=== PATIENT | male | born 1955 | race Caucasian/White ===

== ENCOUNTER 2019-08-30 11:11 | Emergency (ER) | payer OTHER ==
[2019-08-30] MEDS ORDERED: SODIUM CHLORIDE 0.9% 500 ML 500 ML IV ONE (11:43)
--- NOTE | 2019-08-30 11:52 | ED ---
General Adult HPI - General Chief complaint: Neuro Symptoms/Deficit Stated complaint: Altered Mental Status Time Seen by Provider: 08/30/19 11:20 Source: patient, RN notes reviewed, old records reviewed Mode of arrival: EMS Limitations: no limitations - History of Present Illness Initial comments: This a 64-year-old male who presents emergency Department with his . She states she has had some low only progressing dementia but this morning he has been altered significantly she is try to get him to do simple tasks she's been somewhat combative and sometimes not making any sense she has not noticed any slurred speech or expressive aphasia. Patient doesn't seem to understand some basic questions she says and other times he seems to understand fully. Patient himself doesn't know why she is here he just states that he is cold and when you ask him to do some simple commands patient states he doesn't want to. Patient denies any pain in the chest or abdominal pain patient denies any nausea vomiting. Patient denies being short of breath. Patient states his feet are just cold and he doesn't really want to cooperate. states this is totally unlike him and he seems significantly altered whereas yesterday he seemed fine. - Related Data Home Medications Medication Instructions Recorded Confirmed Omeprazole Magnesium [PriLOSEC OTC] 20 mg PO DAILY 08/30/19 08/30/19 amLODIPine [Norvasc] 5 mg PO DAILY 08/30/19 08/30/19 traMADol HCL 50 mg PO Q6H PRN 08/30/19 08/30/19 Allergies Allergy/AdvReac Type Severity Reaction Status Date / Time codeine AdvReac hyper Verified 08/30/19 13:08 Review of Systems ROS Statement: Those systems with pertinent positive or pertinent negative responses have been documented in the HPI. ROS Other: All systems not noted in ROS Statement are negative. Past Medical History Past Medical History: Unable to Obtain History of Any Multi-Drug Resistant Organisms: None Reported Past Surgical History: Orthopedic Surgery Additional Past Surgical History / Comment(s): Pt had kidney removed Past Psychological History: No Psychological Hx Reported Smoking Status: Current every day smoker Past Alcohol Use History: Daily Past Drug Use History: None Reported General Exam - General Exam Comments Initial Comments: GENERAL: Patient is well-developed and well-nourished. Patient is nontoxic and well- hydrated and is in no acute distress. ENT: Neck is soft and supple. No significant lymphadenopathy is noted. Oropharynx is clear. Moist mucous membranes. Neck has full range of motion without eliciting any pain. EYES: The sclera were anicteric and conjunctiva were pink and moist. Extraocular movements were intact and pupils were equal round and reactive to light. Eyelids were unremarkable. PULMONARY: Unlabored respirations. Good breath sounds bilaterally. No audible rales rhonchi or wheezing was noted. CARDIOVASCULAR: There is a regular rate and rhythm without any murmurs gallops or rubs. ABDOMEN: Soft and nontender with normal bowel sounds. SKIN: Skin is clear with no lesions or rashes and otherwise unremarkable. NEUROLOGIC: Patient is alert and oriented unable to assess since patient does not want to answer questions. Cranial nerves II through XII are grossly intact. Motor and sensory are also intact. Normal speech, volume and content. Symmetrical smile. MUSCULOSKELETAL: Normal extremities with adequate strength and full range of motion. LYMPHATICS: No significant lymphadenopathy is noted PSYCHIATRIC: Normal psychiatric evaluation. Limitations: no limitations Course Vital Signs 08/30/19 08/30/19 08/30/19 11:19 12:15 13:00 Temperature 98.2 F Pulse Rate 82 89 86 Respiratory 18 18 Rate Blood Pressure 162/102 157/98 O2 Sat by Pulse 97 96 Oximetry 08/30/19 08/30/19 08/30/19 13:01 13:15 13:30 Temperature Pulse Rate 89 97 89 Respiratory 17 18 18 Rate Blood Pressure 147/81 147/81 147/81 O2 Sat by Pulse 97 95 100 Oximetry 08/30/19 08/30/19 08/30/19 13:45 14:00 14:18 Temperature Pulse Rate 90 94 96 Respiratory 18 16 18 Rate Blood Pressure 156/99 149/88 154/86 O2 Sat by Pulse 100 100 97 Oximetry Medical Decision Making - Medical Decision Making EKG shows normal sinus rhythm at 87 bpm VT interval 240 dresses 82 QT interval 346 QTC is 416. Patient's EKG shows no ST segment elevation or depression or T wave abnormalities are noted. CAT scan came back showing a possible aneurysm with a possible leak. I ordered a CT angiogram of the head neck and a code stroke was called at [address] Reed about left at 124 and I asked him where he like me to send the patient she did not want to make any arrangements until he saw the films. I asked him what blood pressure he would like me to keep the patient at with a small bleed again he stated he would read the films first before making a determination. After Dr. Reed reviewed the films he called back and wanted the patient transferred to [facility]. Patient's blood pressure was 147 systolic and he wanted the blood pressure under 140/started the patient on Cardene. He also stated that he didn't think there was a bleed. I spoke with the and she was in agreement with the transfer to [facility] even though she had some experience with [place] she thought it would be more expedient to go to [facility] because the neuro interventional is was already involved. - Lab Data Result diagrams: 08/30/19 12:05 08/30/19 12:05 Lab Results 08/30/19 08/30/19 08/30/19 Range/Units 12:05 12:05 12:05 WBC 7.2 (3.8-10.6) k/uL RBC 5.34 (4.30-5.90) m/uL Hgb 15.8 (13.0-17.5) gm/dL Hct 45.8 (39.0-53.0) % MCV 85.8 (80.0-100.0) fL MCH 29.6 (25.0-35.0) pg MCHC 34.5 (31.0-37.0) g/dL RDW 12.6 (11.5-15.5) % Plt Count 317 (150-450) k/uL Neutrophils % 82 % Lymphocytes % 10 % Monocytes % 7 % Eosinophils % 0 % Basophils % 0 % Neutrophils # 5.9 (1.3-7.7) k/uL Lymphocytes # 0.7 L (1.0-4.8) k/uL Monocytes # 0.5 (0-1.0) k/uL Eosinophils # 0.0 (0-0.7) k/uL Basophils # 0.0 (0-0.2) k/uL PT 9.4 (9.0-12.0) sec INR 0.9 (<1.2) APTT 23.3 (22.0-30.0) sec Sodium 122 L (137-145) mmol/L Potassium 4.8 (3.5-5.1) mmol/L Chloride 90 L (98-107) mmol/L Carbon Dioxide 24 (22-30) mmol/L Anion Gap 8 mmol/L BUN 14 (9-20) mg/dL Creatinine 0.74 (0.66-1.25) mg/dL Est GFR (CKD-EPI)AfAm >90 (>60 ml/min/1.73 sqM) Est GFR (CKD-EPI)NonAf >90 (>60 ml/min/1.73 sqM) Glucose 103 H (74-99) mg/dL Calcium 9.5 (8.4-10.2) mg/dL Total Bilirubin 0.7 (0.2-1.3) mg/dL AST 27 (17-59) U/L ALT 21 (4-49) U/L Alkaline Phosphatase 83 (38-126) U/L Ammonia (<30) umol/L Troponin I (0.000-0.034) ng/mL Total Protein 7.2 (6.3-8.2) g/dL Albumin 4.4 (3.5-5.0) g/dL Urine Color Urine Appearance (Clear) Urine pH (5.0-8.0) Ur Specific [place] (1.001-1.035) Urine Protein (Negative) Urine Glucose (UA) (Negative) Urine Ketones (Negative) Urine Blood (Negative) Urine Nitrite (Negative) Urine Bilirubin (Negative) Urine Urobilinogen (<2.0) mg/dL Ur Leukocyte Esterase (Negative) Urine WBC (0-5) /hpf Amorphous Sediment (None) /hpf Urine Mucus (None) /hpf Urine Opiates Screen (NotDetected) Ur Oxycodone Screen (NotDetected) Urine Methadone Screen (NotDetected) Ur Propoxyphene Screen (NotDetected) Ur Barbiturates Screen (NotDetected) U Tricyclic Antidepress (NotDetected) Ur Phencyclidine Scrn (NotDetected) Ur Amphetamines Screen (NotDetected) U Methamphetamines Scrn (NotDetected) U Benzodiazepines Scrn (NotDetected) Urine Cocaine Screen (NotDetected) U Marijuana (THC) Screen (NotDetected) Serum Alcohol <10 mg/dL 03/13/20 03/13/20 03/13/20 Range/Units 12:05 12:05 12:25 WBC (3.8-10.6) k/uL RBC (4.30-5.90) m/uL Hgb (13.0-17.5) gm/dL Hct (39.0-53.0) % MCV (80.0-100.0) fL MCH (25.0-35.0) pg MCHC (31.0-37.0) g/dL RDW (11.5-15.5) % Plt Count (150-450) k/uL Neutrophils % % Lymphocytes % % Monocytes % % Eosinophils % % Basophils % % Neutrophils # (1.3-7.7) k/uL Lymphocytes # (1.0-4.8) k/uL Monocytes # (0-1.0) k/uL Eosinophils # (0-0.7) k/uL Basophils # (0-0.2) k/uL PT (9.0-12.0) sec INR (<1.2) APTT (22.0-30.0) sec Sodium (137-145) mmol/L Potassium (3.5-5.1) mmol/L Chloride (98-107) mmol/L Carbon Dioxide (22-30) mmol/L Anion Gap mmol/L BUN (9-20) mg/dL Creatinine (0.66-1.25) mg/dL Est GFR (CKD-EPI)AfAm (>60 ml/min/1.73 sqM) Est GFR (CKD-EPI)NonAf (>60 ml/min/1.73 sqM) Glucose (74-99) mg/dL Calcium (8.4-10.2) mg/dL Total Bilirubin (0.2-1.3) mg/dL AST (17-59) U/L ALT (4-49) U/L Alkaline Phosphatase (38-126) U/L Ammonia <9 (<30) umol/L Troponin I <0.012 (0.000-0.034) ng/mL Total Protein (6.3-8.2) g/dL Albumin (3.5-5.0) g/dL Urine Color Light Yellow Urine Appearance Cloudy (Clear) Urine pH 7.5 (5.0-8.0) Ur Specific [place] 1.012 (1.001-1.035) Urine Protein Negative (Negative) Urine Glucose (UA) Negative (Negative) Urine Ketones 1+ H (Negative) Urine Blood Negative (Negative) Urine Nitrite Negative (Negative) Urine Bilirubin Negative (Negative) Urine Urobilinogen <2.0 (<2.0) mg/dL Ur Leukocyte Esterase Negative (Negative) Urine WBC <1 (0-5) /hpf Amorphous Sediment Rare H (None) /hpf Urine Mucus Rare H (None) /hpf Urine Opiates Screen Not Detected (NotDetected) Ur Oxycodone Screen Not Detected (NotDetected) Urine Methadone Screen Not Detected (NotDetected) Ur Propoxyphene Screen Not Detected (NotDetected) Ur Barbiturates Screen Not Detected (NotDetected) U Tricyclic Antidepress Not Detected (NotDetected) Ur Phencyclidine Scrn Not Detected (NotDetected) Ur Amphetamines Screen Not Detected (NotDetected) U Methamphetamines Scrn Not Detected (NotDetected) U Benzodiazepines Scrn Not Detected (NotDetected) Urine Cocaine Screen Not Detected (NotDetected) U Marijuana (THC) Screen Not Detected (NotDetected) Serum Alcohol mg/dL Critical Care Time Critical Care Time: Yes Total Critical Care Time: 35 Disposition Clinical Impression: Middle cerebral artery aneurysm, Subarachnoid hemorrhage Disposition: OTHER INSTITUTION NOT DEFINED Referrals: None,Stated [Primary Care Provider] - 1-2 days Time of Disposition: 14:05 - Out of Hospital Transfer - Req. Specs Out of Hospital Transfer - Requested Specifics: Other Emergency Center ([facility])
[2019-08-30 12:01] VITALS: TEMP 98.2
[2019-08-30 12:22] LABS: Basophils % (A) 0 %; Eosinophils % (A) 0 %; HCT 45.8 % (39.0-53.0); HGB 15.8 gm/dL (13.0-17.5); Lymphocytes # (A) 0.7 k/uL (1.0-4.8); Lymphocytes % (A) 10 %; MCH 29.6 pg (25.0-35.0); MCHC 34.5 g/dL (31.0-37.0); MCV 85.8 fL (80.0-100.0); Mean Platelet Volume 6.4; Monocytes # (A) 0.5 k/uL (0-1.0); Monocytes % (A) 7 %; Neutrophils # (A) 5.9 k/uL (1.3-7.7); Neutrophils % (A) 82 %; Platelet Count 317 k/uL (150-450); RBC 5.34 m/uL (4.30-5.90); RDW 12.6 % (11.5-15.5); WBC 7.2 k/uL (3.8-10.6)
[2019-08-30 12:34] LABS: INR 0.9 (<1.2); Partial Thromboplastin Time 23.3 sec (22.0-30.0); Prothrombin Time 9.4 sec (9.0-12.0)
[2019-08-30 12:37] LABS: ALT 21 U/L (4-49); AST 27 U/L (17-59); African American GFR (CKD) >90 (>60 ml/min/1.73 sqM); Albumin 4.4 g/dL (3.5-5.0); Alcohol <10 mg/dL; Alkaline Phosphatase 83 U/L (38-126); Anion Gap 8 mmol/L; Blood Urea Nitrogen 14 mg/dL (9-20); Calcium 9.5 mg/dL (8.4-10.2); Carbon Dioxide 24 mmol/L (22-30); Chloride 90 mmol/L (98-107); Glucose 103 mg/dL (74-99); Non-African American GFR(CKD) >90 (>60 ml/min/1.73 sqM); Potassium 4.8 mmol/L (3.5-5.1); Sodium 122 mmol/L (137-145); Total Bilirubin 0.7 mg/dL (0.2-1.3); Total Protein 7.2 g/dL (6.3-8.2)
[2019-08-30 12:56] LABS: Amorphous Sediment,Urine Rare /hpf; Appearance,Urine Cloudy (Clear); Bilirubin,Urine Negative (Negative); Blood,Urine Negative (Negative); Color,Urine Light Yellow; Glucose,Urine (UA) Negative (Negative); Ketones,Urine 1+ (Negative); Leukocyte Esterase,Urine Negative (Negative); Mucus,Urine Rare /hpf; Nitrite,Urine Negative (Negative); PH, Urine 7.5 (5.0-8.0); Protein,Urine Negative (Negative); Specific Gravity,Urine 1.012 (1.001-1.035); Urobilinogen,Urine <2.0 mg/dL (<2.0); WBC,Urine <1 /hpf (0-5)
--- NOTE | 2019-08-30 13:00 | XR ---
EXAMINATION TYPE: XR chest 2V DATE OF EXAM: 08/30/2019 COMPARISON: NONE HISTORY: Altered mental status TECHNIQUE: Frontal and lateral views of the chest are obtained. FINDINGS: There is no focal air space opacity, pleural effusion, or pneumothorax seen. There is pul monary hyperinflation and flattening of the diaphragms with increased retrosternal airspace is indica tive of underlying COPD. The cardiac silhouette size is within normal limits. Hilar prominence is ex aggerated by rotation. Somewhat spiculated appearance of the left roni. The osseous structures are in tact. Mild multilevel degenerative change of the spine. IMPRESSION: 1. No acute cardiopulmonary process. 2. Findings indicative of underlying COPD. 3. Bilateral hilar prominence may be on the basis of pulmonary arterial hypertension or adenopathy. S omewhat spiculated appearance of the left roni should be evaluated with nonemergent follow-up CT thor ax to exclude perihilar nodule.
--- NOTE | 2019-08-30 13:01 | CT ---
EXAMINATION TYPE: CT brain wo con DATE OF EXAM: 08/30/2019 COMPARISON: None HISTORY: altered mental status CT DLP: 1099.4 mGycm Automated exposure control for dose reduction was used. Head CT performed using departmental protocol FINDINGS: Some increased attenuation is present along the medial aspect of the left cerebellar pedunc le, axial image #14. Additionally on axial image #11 and prepontine hemorrhage is suspected. There is no hydrocephalus. At the level of the middle cerebral artery trifurcation on the right there is a prominent focus of increased attenuation measuring approximately 15 mm in greatest dimension. C ortical atrophy is present. IMPRESSION: FINDINGS LIKELY REPRESENT MIDDLE CEREBRAL ARTERY ANEURYSM WITH AVAILABLE SUBARACHNOID HEMORRHAGE, THOMAS Eng Results relayed to Dr. Ugarte telephonically at the time of interpretation
[2019-08-30 13:03] LABS: Amphetamine Screen,Urine Not Detected (NotDetected); Barbiturate Screen,Urine Not Detected (NotDetected); Benzodiazepines Screen,Urine Not Detected (NotDetected); Cocaine Screen,Urine Not Detected (NotDetected); Methadone Screen, Urine Not Detected (NotDetected); Opiate Screen,Urine Not Detected (NotDetected); Oxycodone Screen, Urine Not Detected (NotDetected); Phencyclidine Screen,Urine Not Detected (NotDetected); Tricyclic Antidepressant,Urine Not Detected (NotDetected); Urn Cannabinoid Scrn Not Detected (NotDetected)
--- NOTE | 2019-08-30 13:45 | CT ---
EXAMINATION TYPE: CT angio head neck DATE OF EXAM: 08/30/2019 HISTORY: Altered mental status. COMPARISON: CT brain same date CT DLP: 385.5 mGycm. Automated Exposure Control for Dose Reduction was Utilized. TECHNIQUE: CTA scan of the neck is performed with IV Contrast, patient injected with 65 mL of Isovue 370, axial images are obtained, coronal and sagittal reformatted images are reviewed. Three-D recons tructed images are created on an independent workstation and reviewed. FINDINGS: Carotid/Vascular Structures: Right middle cerebral artery aneurysm is confirmed and measures approxim ately 1.3 cm in transverse dimension by 1.1 cm in AP dimension by 9 mm in cephalad to caudal dimensio n. Anterior and posterior circulation is patent. No significant stenosis of the proximal internal car otid arteries, carotid artery bifurcation calcifications are present. Other: Emphysematous changes present within the lungs. IMPRESSION: Right middle cerebral artery aneurysm as previously described. No evident leak.
[2019-08-30] MEDS ORDERED: niCARdipine 20 MG in SODIUM CHLORIDE 0.9% 192 ML IV SCH (14:00)
[2019-08-30 14:18] VITALS: BP 154/86; PULSE 96; RESP 18
== END 2019-08-30 14:10 | disposition other institution (70) ==
LOC: EC 11:11
DX: I67.1 Cerebral aneurysm, nonruptured (principal); I60.9 Nontraumatic subarachnoid hemorrhage, unspecified; F17.200 Nicotine dependence, unspecified, uncomplicated; Z79.899 Other long term (current) drug therapy; Z88.5 Allergy status to narcotic agent
CPT/HCPCS: 99291 ×2; 96365 ×2; 36415; 93005; 80053; 82140; 84484; 85025; 85610; 85730; 81001; 80306; 80320; 71046; 70496; 70450; 70498; Q9967

== ENCOUNTER 2019-11-26 15:50 | Inpatient (IN) | payer OTHER ==
[2019-11-26 17:22] LABS: Appearance,Urine Clear (Clear); Bilirubin,Urine Negative (Negative); Blood,Urine Negative (Negative); Color,Urine Yellow; Glucose,Urine (UA) Negative (Negative); Ketones,Urine Trace (Negative); Leukocyte Esterase,Urine Negative (Negative); Nitrite,Urine Negative (Negative); PH, Urine 6.5 (5.0-8.0); Protein,Urine Negative (Negative); Specific Gravity,Urine 1.011 (1.001-1.035); Urobilinogen,Urine <2.0 mg/dL (<2.0)
--- NOTE | 2019-11-26 18:08 | XR ---
EXAMINATION TYPE: XR chest 2V DATE OF EXAM: 11/26/2019 COMPARISON: 08/30/2019 HISTORY: Lung tumor TECHNIQUE: 2 views FINDINGS: Heart is normal. There is pulmonary hyperinflation. There is calcified granuloma at the lef t pulmonary hilum. There is some bulkiness of the left pulmonary hilum. There is flattening of the di aphragm. Bony thorax is intact. IMPRESSION: COPD. Bulkiness left pulmonary hilum similar to last exam.
[2019-11-26] MEDS ORDERED: IPRATROPIUM-ALBUTEROL 3 ML NEB INHALATION STA (18:22)
--- NOTE | 2019-11-26 18:38 | ED ---
SOB HPI - General Chief Complaint: Shortness of Breath Stated Complaint: SOB Time Seen by Provider: 11/26/19 17:48 Source: patient, family, RN notes reviewed Mode of arrival: ambulatory Limitations: no limitations - History of Present Illness Initial Comments: This is a 64-year-old male with a recent diagnosis of a lung mass who presents with complaints of shortness of breath with exertional dyspnea. He's had decreased oral intake he's had decreased urine output. No cough no phlegm production no fevers chills or sweats. 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 He is scheduled to have a PET scan done in the near future. He also was found have low sodium Apparently is been some delay in assessment due to the recent pandemic. Other complaints no chest pain currently no other modifying factors he is still smoking. MD Complaint: shortness of breath - Related Data Home Medications Medication Instructions Recorded Confirmed Omeprazole Magnesium [PriLOSEC OTC] 20 mg PO DAILY 08/30/19 11/26/19 amLODIPine [Norvasc] 5 mg PO DAILY 08/30/19 11/26/19 traMADol HCL 50 mg PO DAILY@1200 08/30/19 11/26/19 Albuterol Inhaler [Ventolin Hfa 1 - 2 puff INHALATION RT-Q6H PRN 11/26/19 11/26/19 Inhaler] Aspirin EC [Ecotrin Low Dose] 81 mg PO DAILY 11/26/19 11/26/19 Cholecalciferol [Vitamin D3 (25 1,000 unit PO DAILY 11/26/19 11/26/19 Mcg = 1000 Iu)] Vitamin A 8,000 unit PO DAILY 11/26/19 11/26/19 Allergies Allergy/AdvReac Type Severity Reaction Status Date / Time codeine AdvReac hyper Verified 11/26/19 18:41 Review of Systems ROS Statement: Those systems with pertinent positive or pertinent negative responses have been documented in the HPI. ROS Other: All systems not noted in ROS Statement are negative. Past Medical History Past Medical History: Unable to Obtain Additional Past Medical History / Comment(s): lung mass, numerous brain aneurysms, hyponatremia, low urine output, History of Any Multi-Drug Resistant Organisms: None Reported Past Surgical History: Appendectomy, Orthopedic Surgery Additional Past Surgical History / Comment(s): Pt had kidney removed, brain aneurysm fixed, Past Psychological History: No Psychological Hx Reported Smoking Status: Former smoker Past Alcohol Use History: Occasional Past Drug Use History: None Reported General Exam - General Exam Comments Initial Comments: This is a well-developed well-nourished awake alert oriented 3 male Limitations: no limitations General appearance: alert, anxious Head exam: Present: atraumatic, normocephalic, normal inspection Eye exam: Present: normal appearance, PERRL, EOMI. Absent: scleral icterus, conjunctival injection, periorbital swelling ENT exam: Present: normal exam, mucous membranes moist Neck exam: Present: normal inspection, full ROM, other (No stridor JVD or bruits). Absent: tenderness, meningismus, lymphadenopathy Respiratory exam: Present: wheezes, decreased breath sounds. Absent: respiratory distress, rales, rhonchi, stridor Cardiovascular Exam: Present: regular rate, normal rhythm, normal heart sounds. Absent: systolic murmur, diastolic murmur, rubs, gallop, clicks GI/Abdominal exam: Present: soft, normal bowel sounds. Absent: distended, tenderness, guarding, rebound, rigid Extremities exam: Present: normal inspection, full ROM, normal capillary refill. Absent: tenderness, pedal edema, joint swelling, calf tenderness Back exam: Present: normal inspection Neurological exam: Present: alert, oriented X3, CN II-XII intact Psychiatric exam: Present: normal affect, normal mood Skin exam: Present: warm, dry, intact, normal color. Absent: rash Course Vital Signs 11/26/19 11/26/19 11/26/19 16:14 18:36 18:42 Temperature 98.4 F Pulse Rate 82 Respiratory 18 18 Rate Blood Pressure 137/91 O2 Sat by Pulse 98 96 Oximetry 11/26/19 11/26/19 11/26/19 18:56 19:00 19:01 Temperature Pulse Rate 75 71 78 Respiratory 18 Rate Blood Pressure 147/94 O2 Sat by Pulse 100 Oximetry 11/26/19 19:08 Temperature Pulse Rate 78 Respiratory 18 Rate Blood Pressure 147/88 O2 Sat by Pulse 97 Oximetry Medical Decision Making - Medical Decision Making Patient did get some relief from his breathing after the updraft treatment I did a long discussion with him as well as regarding findings he does have hyponatremia. His current presentation is likely consistent with SIADH he will be admitted case is discussed with Dr. Lee - Lab Data Result diagrams: 11/26/19 18:32 11/26/19 18:32 Lab Results 11/26/19 11/26/19 11/26/19 Range/Units 17:13 18:32 18:32 WBC 5.3 (3.8-10.6) k/uL RBC 4.68 (4.30-5.90) m/uL Hgb 14.1 (13.0-17.5) gm/dL Hct 39.6 (39.0-53.0) % MCV 84.6 (80.0-100.0) fL MCH 30.1 (25.0-35.0) pg MCHC 35.6 (31.0-37.0) g/dL RDW 12.9 (11.5-15.5) % Plt Count 297 (150-450) k/uL Neutrophils % 69 % Lymphocytes % 18 % Monocytes % 9 % Eosinophils % 1 % Basophils % 0 % Neutrophils # 3.6 (1.3-7.7) k/uL Lymphocytes # 1.0 (1.0-4.8) k/uL Monocytes # 0.5 (0-1.0) k/uL Eosinophils # 0.1 (0-0.7) k/uL Basophils # 0.0 (0-0.2) k/uL D-Dimer (<0.60) mg/L FEU Sodium (137-145) mmol/L Potassium (3.5-5.1) mmol/L Chloride (98-107) mmol/L Carbon Dioxide (22-30) mmol/L Anion Gap mmol/L BUN (9-20) mg/dL Creatinine (0.66-1.25) mg/dL Est GFR (CKD-EPI)AfAm (>60 ml/min/1.73 sqM) Est GFR (CKD-EPI)NonAf (>60 ml/min/1.73 sqM) Glucose (74-99) mg/dL Calcium (8.4-10.2) mg/dL Magnesium (1.6-2.3) mg/dL Total Bilirubin (0.2-1.3) mg/dL AST (17-59) U/L ALT (4-49) U/L Alkaline Phosphatase (38-126) U/L Creatine Kinase (55-170) U/L NT-Pro-B Natriuret Pep 181 pg/mL Total Protein (6.3-8.2) g/dL Albumin (3.5-5.0) g/dL Urine Color Yellow Urine Appearance Clear (Clear) Urine pH 6.5 (5.0-8.0) Ur Specific [place] 1.011 (1.001-1.035) Urine Protein Negative (Negative) Urine Glucose (UA) Negative (Negative) Urine Ketones Trace H (Negative) Urine Blood Negative (Negative) Urine Nitrite Negative (Negative) Urine Bilirubin Negative (Negative) Urine Urobilinogen <2.0 (<2.0) mg/dL Ur Leukocyte Esterase Negative (Negative) 11/26/19 11/26/19 Range/Units 18:32 18:32 WBC (3.8-10.6) k/uL RBC (4.30-5.90) m/uL Hgb (13.0-17.5) gm/dL Hct (39.0-53.0) % MCV (80.0-100.0) fL MCH (25.0-35.0) pg MCHC (31.0-37.0) g/dL RDW (11.5-15.5) % Plt Count (150-450) k/uL Neutrophils % % Lymphocytes % % Monocytes % % Eosinophils % % Basophils % % Neutrophils # (1.3-7.7) k/uL Lymphocytes # (1.0-4.8) k/uL Monocytes # (0-1.0) k/uL Eosinophils # (0-0.7) k/uL Basophils # (0-0.2) k/uL D-Dimer 0.26 (<0.60) mg/L FEU Sodium 120 L (137-145) mmol/L Potassium 3.8 (3.5-5.1) mmol/L Chloride 83 L (98-107) mmol/L Carbon Dioxide 30 (22-30) mmol/L Anion Gap 7 mmol/L BUN 8 L (9-20) mg/dL Creatinine 0.61 L (0.66-1.25) mg/dL Est GFR (CKD-EPI)AfAm >90 (>60 ml/min/1.73 sqM) Est GFR (CKD-EPI)NonAf >90 (>60 ml/min/1.73 sqM) Glucose 114 H (74-99) mg/dL Calcium 9.1 (8.4-10.2) mg/dL Magnesium 1.7 (1.6-2.3) mg/dL Total Bilirubin 0.6 (0.2-1.3) mg/dL AST 26 (17-59) U/L ALT 19 (4-49) U/L Alkaline Phosphatase 72 (38-126) U/L Creatine Kinase 56 (55-170) U/L NT-Pro-B Natriuret Pep pg/mL Total Protein 6.8 (6.3-8.2) g/dL Albumin 3.9 (3.5-5.0) g/dL Urine Color Urine Appearance (Clear) Urine pH (5.0-8.0) Ur Specific [place] (1.001-1.035) Urine Protein (Negative) Urine Glucose (UA) (Negative) Urine Ketones (Negative) Urine Blood (Negative) Urine Nitrite (Negative) Urine Bilirubin (Negative) Urine Urobilinogen (<2.0) mg/dL Ur Leukocyte Esterase (Negative) - Radiology Data Radiology results: report reviewed (I did review the imaging and report consistent with prior exam), image reviewed Disposition Clinical Impression: Acute exacerbation of chronic obstructive pulmonary disease, Hyponatremia sy ndrome, SIADH (syndrome of inappropriate ADH production) Disposition: [facility] Condition: Fair Referrals: Carlos Saeed MD [Primary Care Provider] - 1-2 days
[2019-11-26 18:55] LABS: Basophils % (A) 0 %; Eosinophils # (A) 0.1 k/uL (0-0.7); Eosinophils % (A) 1 %; HCT 39.6 % (39.0-53.0); HGB 14.1 gm/dL (13.0-17.5); Lymphocytes % (A) 18 %; MCH 30.1 pg (25.0-35.0); MCHC 35.6 g/dL (31.0-37.0); MCV 84.6 fL (80.0-100.0); Mean Platelet Volume 6.4; Monocytes # (A) 0.5 k/uL (0-1.0); Monocytes % (A) 9 %; Neutrophils # (A) 3.6 k/uL (1.3-7.7); Neutrophils % (A) 69 %; Platelet Count 297 k/uL (150-450); RBC 4.68 m/uL (4.30-5.90); RDW 12.9 % (11.5-15.5); WBC 5.3 k/uL (3.8-10.6)
[2019-11-26 19:14] LABS: ALT 19 U/L (4-49); AST 26 U/L (17-59); African American GFR (CKD) >90 (>60 ml/min/1.73 sqM); Albumin 3.9 g/dL (3.5-5.0); Alkaline Phosphatase 72 U/L (38-126); Anion Gap 7 mmol/L; Blood Urea Nitrogen 8 mg/dL (9-20); Calcium 9.1 mg/dL (8.4-10.2); Carbon Dioxide 30 mmol/L (22-30); Chloride 83 mmol/L (98-107); Creatine Kinase 56 U/L (55-170); Glucose 114 mg/dL (74-99); Magnesium 1.7 mg/dL (1.6-2.3); Non-African American GFR(CKD) >90 (>60 ml/min/1.73 sqM); Potassium 3.8 mmol/L (3.5-5.1); Sodium 120 mmol/L (137-145); Total Bilirubin 0.6 mg/dL (0.2-1.3); Total Protein 6.8 g/dL (6.3-8.2)
[2019-11-26] MEDS ORDERED: SODIUM CHLORIDE 0.9% 1,000 ML IV STA (19:50)
[2019-11-26] MEDS ORDERED: IPRATROPIUM-ALBUTEROL 3 ML NEB INHALATION SCH (20:00)
[2019-11-26] MEDS ORDERED: IPRATROPIUM-ALBUTEROL 3 ML NEB INHALATION PRN (20:13)
--- NOTE | 2019-11-27 02:55 | P.HPIM ---
History of Present Illness H&P Date: 11/26/19 The patient is a 61-year-old male with a PMH of hypertension, and recently diagnosed lung mass presented to the ED with complaints of worsening lethargy, weight loss, and decreased urine output. The patient notes that he was initially diagnosed with his lung mass in August 2019 during hospitalization at another facility) for which the patient has not been able to undergo the workup due to Covid and is scheduled to undergo biopsy of the mass on December 03. The patient notes however that his symptoms have been gradually worsening over the past few months, and he has noticed a 15-20 pound weight loss over the past 1- 1/2 months. He also notes that his excess tolerance is significantly diminished and now he gets winded with even walking a few steps. He also notes that he has not been producing enough urine, even though he feels he is drinking adequate amounts of fluid. He otherwise denied chest pain, shortness of breath, fever, chills, nausea, vomiting, headaches, dizziness, cough, recent travel, or sick contacts. He underwent an extensive evaluation in the emergency room with chest x-ray showing likely COPD with left hilar bulkiness as seen previously with laboratory evaluation showing sodium 120, down from 122 previously, potassium 3.8, chloride 83, BUN 8, creatinine 0.61, BNP 181, with UA unremarkable. Review of Systems Pertinent positives and negatives as discussed in HPI, a complete review of systems was performed and all other systems are negative. Past Medical History Past Medical History: Unable to Obtain Additional Past Medical History / Comment(s): lung mass, numerous brain aneurysms, hyponatremia, low urine output, History of Any Multi-Drug Resistant Organisms: None Reported Past Surgical History: Appendectomy, Orthopedic Surgery Additional Past Surgical History / Comment(s): Pt had kidney removed, brain aneurysm fixed, Past Psychological History: No Psychological Hx Reported Smoking Status: Former smoker Past Alcohol Use History: Occasional Past Drug Use History: None Reported - Past Family History Mother Additional Family Medical History / Comment(s): colon cancer Father Family Medical History: No Reported History Additional Family Medical History / Comment(s): of old age Medications and Allergies Home Medications Medication Instructions Recorded Confirmed Type Omeprazole Magnesium [PriLOSEC OTC] 20 mg PO DAILY 08/30/19 11/26/19 History amLODIPine [Norvasc] 5 mg PO DAILY 08/30/19 11/26/19 History traMADol HCL 50 mg PO DAILY@1200 08/30/19 11/26/19 History Albuterol Inhaler [Ventolin Hfa 1 - 2 puff INHALATION RT-Q6H PRN 11/26/19 11/26/19 History Inhaler] Aspirin EC [Ecotrin Low Dose] 81 mg PO DAILY 11/26/19 11/26/19 History Cholecalciferol [Vitamin D3 (25 1,000 unit PO DAILY 11/26/19 11/26/19 History Mcg = 1000 Iu)] Vitamin A 8,000 unit PO DAILY 11/26/19 11/26/19 History Allergies Allergy/AdvReac Type Severity Reaction Status Date / Time codeine AdvReac hyper Verified 11/26/19 18:41 Physical Exam Vitals: Vital Signs Temp Pulse Resp BP Pulse Ox 11/26/19 19:08 78 18 147/88 97 11/26/19 19:01 78 11/26/19 19:00 71 18 147/94 100 11/26/19 18:56 75 11/26/19 18:42 18 11/26/19 18:36 96 11/26/19 16:14 98.4 F 82 18 137/91 98 Intake and Output 11/26/19 11/26/19 11/26/19 06:59 14:59 22:59 Other: Weight 66.224 kg General: non toxic, no distress, appears at stated age, normal weight Derm: no unusual rashes/lesions no unusual ecchymoses, warm, dry Head: atraumatic, normocephalic, symmetric Eyes: EOMI, no lid lag, anicteric sclera, pupils equal round reactive to light ENT: Nose and ears atraumatic, no thrush, no pharyngeal erythema Neck: No thyromegaly, no cervical lymphadenopathy, trachea midline, supple Mouth: no lip lesion, mucus membranes moist Cardiovascular: S1S2 reg, no murmur, positive posterior tibial pulse bilateral, no edema, capillary refill less than 2 seconds Lungs: CTA bilateral, no rhonchi, no rales , no accessory muscle use Abdominal: soft, nontender to palpation, no guarding, no appreciable organomegaly, normal bowel sounds Ext: no gross muscle atrophy, muscle strength 5 out of 5 in all 4 extremities grossly, no contractures, Neuro: CN II-XI grossly intact, light touch intact all 4 extremities, finger to nose within normal limits, Psych: Alert, oriented, appropriate affect Results CBC & Chem 7: 11/26/19 18:32 11/26/19 18:32 Labs: Abnormal Lab Results - Last 24 Hours (Table) 11/26/19 11/26/19 Range/Units 17:13 18:32 Sodium 120 L (137-145) mmol/L Chloride 83 L (98-107) mmol/L BUN 8 L (9-20) mg/dL Creatinine 0.61 L (0.66-1.25) mg/dL Glucose 114 H (74-99) mg/dL Urine Ketones Trace H (Negative) Assessment and Plan Plan: Hyponatremia, 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 -Obtain serum and urine osmolality and urine creatinine -Start fluid restriction -Monitor BMP -Fall and seizure precautions -Nephrology consult Weight loss, lethargy, decreased exercise tolerance -Likely secondary to known lung mass -Patient already scheduled to undergo lung biopsy as outpatient on 12/03 -Obtain TSH Hypertension -Continue with home meds DVT prophylaxis -Lovenox The patient is admitted with an anticipated more than 2 midnight stay for evaluation of hyponatremia CODE STATUS: Full Code Discussed with: Patient Anticipated discharge date: 2-[address]: Home A total of 35 minutes was spent on the care of this complex patient more than 50% of the time was spent in counseling and care coordination.
[2019-11-27 04:05] LABS: African American GFR (CKD) >90 (>60 ml/min/1.73 sqM); Anion Gap 9 mmol/L; Blood Urea Nitrogen 9 mg/dL (9-20); Calcium 8.9 mg/dL (8.4-10.2); Carbon Dioxide 22 mmol/L (22-30); Chloride 89 mmol/L (98-107); Glucose 90 mg/dL (74-99); Non-African American GFR(CKD) >90 (>60 ml/min/1.73 sqM); Potassium 3.7 mmol/L (3.5-5.1); Sodium 120 mmol/L (137-145)
[2019-11-27] MEDS: BENZOCAINE/MENTHOL LOZENG 1 EACH LOZENGE MUCOUS MEM PRN ×3 (04:07→21:55)
[2019-11-27] MEDS: IPRATROPIUM-ALBUTEROL 3 ML NEB INHALATION SCH ×4 (07:33→20:15)
[2019-11-27] MEDS: PANTOPRAZOLE 40 MG TABLET PO SCH (08:26)
[2019-11-27] MEDS: ASPIRIN 81 MG PO SCH (08:27)
[2019-11-27] MEDS: amLODIPine 5 MG TAB PO SCH (08:27)
[2019-11-27] MEDS: CHOLECALCIFEROL 1,000 UNIT TAB PO SCH (08:27)
[2019-11-27] MEDS: ENOXAPARIN 40 MG/0.4 ML SYRINGE SQ SCH (08:27)
[2019-11-27] MEDS: VITAMIN A 10,000 UNIT CAPSULE PO SCH (08:33)
[2019-11-27 12:38] LABS: African American GFR (CKD) >90 (>60 ml/min/1.73 sqM); Anion Gap 11 mmol/L; Blood Urea Nitrogen 9 mg/dL (9-20); Calcium 9.3 mg/dL (8.4-10.2); Carbon Dioxide 24 mmol/L (22-30); Chloride 89 mmol/L (98-107); Glucose 91 mg/dL (74-99); Non-African American GFR(CKD) >90 (>60 ml/min/1.73 sqM); Potassium 3.7 mmol/L (3.5-5.1); Sodium 124 mmol/L (137-145)
--- NOTE | 2019-11-27 13:19 | P.NPCON ---
History of Present Illness - Reason for Consult hyponatremia - History of Present Illness Reason for consultation: Hyponatremia History of present illness: Patient is a 64-year-old male seen in renal consultation for hyponatremia. Patient's sodium level on admission was 120. Repeat sodium level about 7 hours later was still 120. This afternoon it is up to 124. He is maintained on normal saline at 100 mL an hour. Patient states he hasn't been eating well the last few days and has been drinking at least 3-4 bottles of water daily. Patient states each bottle is about 16 ounces. He denies vomiting or diarrhea. No edema. Good urine output. No hematuria or dysuria. He denies being in a thiazide diuretic. He denies use of nonsteroidals. Denies prior history of kidney disease. However he states that he has history of renal cancer and has undergone a left-sided nephrectomy in the past. He is noted to have a lung mass and is scheduled to undergo CAT scan and potential kidney biopsy later this month. Patient states he was initially diagnosed a lung mass in August 2019. He states he has been losing weight the last couple of months. Hemodynamically stable. Patient also states that he has a history of brain aneurysm for which she underwent surgical intervention earlier this year. Vital signs are stable. General: The patient appeared well nourished and normally developed. HEENT: Head exam is unremarkable. Neck is without jugular venous distension. LUNGS: Lungs are clear to auscultation and percussion. Breath sounds decreased. HEART: Rate and Rhythm are regular. ABDOMEN: Soft, nontender. EXTREMITITES: No clubbing, cyanosis, or edema. Past Medical History Past Medical History: Unable to Obtain Additional Past Medical History / Comment(s): lung mass, numerous brain aneurysms, hyponatremia, low urine output, History of Any Multi-Drug Resistant Organisms: None Reported Past Surgical History: Appendectomy, Orthopedic Surgery Additional Past Surgical History / Comment(s): Pt had kidney removed, brain aneurysm fixed, Past Anesthesia/Blood Transfusion Reactions: No Reported Reaction Past Psychological History: No Psychological Hx Reported Smoking Status: Former smoker Past Alcohol Use History: Occasional Past Drug Use History: None Reported - Past Family History Mother Additional Family Medical History / Comment(s): colon cancer Father Family Medical History: No Reported History Additional Family Medical History / Comment(s): of old age Medications and Allergies Home Medications Medication Instructions Recorded Confirmed Type Omeprazole Magnesium [PriLOSEC OTC] 20 mg PO DAILY 08/30/19 11/26/19 History amLODIPine [Norvasc] 5 mg PO DAILY 08/30/19 11/26/19 History traMADol HCL 50 mg PO DAILY@1200 08/30/19 11/26/19 History Albuterol Inhaler [Ventolin Hfa 1 - 2 puff INHALATION RT-Q6H PRN 11/26/19 11/26/19 History Inhaler] Aspirin EC [Ecotrin Low Dose] 81 mg PO DAILY 11/26/19 11/26/19 History Cholecalciferol [Vitamin D3 (25 1,000 unit PO DAILY 11/26/19 11/26/19 History Mcg = 1000 Iu)] Vitamin A 8,000 unit PO DAILY 11/26/19 11/26/19 History Allergies Allergy/AdvReac Type Severity Reaction Status Date / Time codeine AdvReac hyper Verified 11/26/19 18:41 Physical Exam Vitals: Vital Signs Temp Pulse Pulse Pulse Resp BP BP 11/27/19 12:45 98.2 F 89 18 138/88 11/27/19 11:39 98.1 F 74 18 132/92 11/27/19 11:19 74 18 11/27/19 11:09 74 11/27/19 10:57 72 11/27/19 07:48 74 11/27/19 07:33 72 11/27/19 07:25 86 18 132/92 11/27/19 00:08 98.1 F 79 16 154/95 11/26/19 23:30 77 16 155/95 11/26/19 19:08 78 18 147/88 11/26/19 19:01 78 11/26/19 19:00 71 18 147/94 11/26/19 18:56 75 11/26/19 18:42 18 11/26/19 18:36 11/26/19 16:14 98.4 F 82 18 137/91 Pulse Ox 11/27/19 12:45 96 11/27/19 11:39 94 L 11/27/19 11:19 94 L 11/27/19 11:09 11/27/19 10:57 11/27/19 07:48 11/27/19 07:33 11/27/19 07:25 11/27/19 00:08 92 L 11/26/19 23:30 96 11/26/19 19:08 97 11/26/19 19:01 11/26/19 19:00 100 11/26/19 18:56 11/26/19 18:42 11/26/19 18:36 96 11/26/19 16:14 98 Intake and Output 11/26/19 11/27/19 11/27/19 22:59 06:59 14:59 Intake Total 400 1300 Balance 400 1300 Intake: Amount of Fluid Infused ( 1300 ml) Intake, IV Titration 400 Amount Sodium Chloride 0.9% 1, 400 000 ml @ 100 mls/hr IV . Q10H [facility] Rx#:[id number] Other: Weight 66.224 kg 66.224 kg Results - Lab Results Most recent lab results Calcium 9.3 mg/dL (8.4-10.2) 11/27/19 12:05 Magnesium 1.7 mg/dL (1.6-2.3) 11/26/19 18:32 11/26/19 18:32 11/27/19 12:05 Assessment and Plan Plan: Assessment: 1. Hypovolemic hyponatremia improving with IV hydration. Sodium level up to 124 today. I also suspect underlying SIADH due to underlying lung mass as well as component of poor solute intake. TSH normal. 2. Lung mass. Patient states he is scheduled to undergo CAT scan and potential biopsy in December 03. 3. Benign hypertension. Controlled. Plan: Follow-up urine random sodium and urine osmolality. Maintain normal saline for now. 1200 mL fluid restriction. Encourage oral intake, particularly protein. Repeat sodium level at 6 PM today. Thank you for the consultation. I will continue to follow the patient with you during his hospital stay.
[2019-11-27 14:26] VITALS: BMI 18.7
[2019-11-27 15:01] LABS: Creatinine,Urine Random 72.3 mg/dL
[2019-11-27] MEDS: traMADol 50 MG TAB PO SCH (15:28)
--- NOTE | 2019-11-27 18:52 | P.PN ---
Subjective Progress Note Date: 11/27/19 Principal diagnosis: Hyponatremia Patient was seen and examined. No acute events overnight. Patient reports improvement in his generalized weakness since admission. He denies any chest pain, shortness of breath or palpitations. No nausea or vomiting. No fever or chills. Objective - Vital Signs Vital signs: Vital Signs Temp 98.2 F 11/27/19 12:45 Pulse 80 11/27/19 15:17 Resp 18 11/27/19 12:45 BP 138/88 11/27/19 12:45 Pulse Ox 96 11/27/19 12:45 Intake & Output 11/26/19 11/27/19 11/27/19 18:59 06:59 18:59 Intake Total 400 1700 Balance 400 1700 Weight 66.224 kg 66.224 kg 66.224 kg Intake: Amount of Fluid Infused ( 1300 ml) Intake, IV Titration 400 400 Amount Sodium Chloride 0.9% 1, 400 400 000 ml @ 100 mls/hr IV . Q10H [facility] Rx#:[id number] Other: # Voids 1 - Exam General: [non toxic], [no distress], [appears at stated age] Derm: [warm], [dry] Head: [atraumatic], [normocephalic], [symmetric] Eyes: [EOMI], [no lid lag], [anicteric sclera] Mouth: [no lip lesion], [mucus membranes moist] Cardiovascular: [S1S2 reg], [no murmur], [positive posterior tibial pulse bilateral], Lungs: [CTA bilateral], [no rhonchi, no rales] , [no accessory muscle use] Abdominal: [soft], [ nontender to palpation], [no guarding], [no appreciable organomegaly] Ext: [no gross muscle atrophy], [no edema], [no contractures] Neuro: [no focal neuro deficits] Psych: [Alert], [oriented], [appropriate affect] - Labs CBC & Chem 7: 11/26/19 18:32 11/27/19 17:30 Labs: Abnormal Lab Results - Last 24 Hours (Table) 11/26/19 11/27/19 11/27/19 Range/Units 18:32 03:37 03:37 Sodium 120 L 120 L (137-145) mmol/L Chloride 83 L 89 L (98-107) mmol/L BUN 8 L (9-20) mg/dL Creatinine 0.61 L 0.53 L (0.66-1.25) mg/dL Glucose 114 H (74-99) mg/dL Osmolality 247 L* (280-301) mosm/kg Uric Acid (3.5-8.5) mg/dL 11/27/19 11/27/19 11/27/19 Range/Units 12:05 12:05 17:30 Sodium 124 L 123 L (137-145) mmol/L Chloride 89 L (98-107) mmol/L BUN (9-20) mg/dL Creatinine 0.61 L (0.66-1.25) mg/dL Glucose (74-99) mg/dL Osmolality (280-301) mosm/kg Uric Acid 1.6 L (3.5-8.5) mg/dL Assessment and Plan Assessment: Hyponatremia, 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 -Serum osmolality low suggesting SIADH -Sodium improved from 120-124 -Continue fluid restriction -Nephrology consult Weight loss, lethargy, decreased exercise tolerance -Likely secondary to known lung mass -Patient already scheduled to undergo lung biopsy as outpatient on 12/03 Hypertension -Continue with home meds DVT prophylaxis -Lovenox [Patient's sodium slowly improving with fluid restriction. Plans to recheck sodium tomorrow. Nephrology on board. Patient is pending clinical improvement. Likely DC in 1-2 days.]
[2019-11-27] MEDS ORDERED: DOCUSATE 100 MG CAP PO STA (22:54)
[2019-11-28 07:39] LABS: African American GFR (CKD) >90 (>60 ml/min/1.73 sqM); Anion Gap 8 mmol/L; Blood Urea Nitrogen 10 mg/dL (9-20); Calcium 8.9 mg/dL (8.4-10.2); Carbon Dioxide 27 mmol/L (22-30); Chloride 90 mmol/L (98-107); Glucose 86 mg/dL (74-99); Magnesium 1.6 mg/dL (1.6-2.3); Non-African American GFR(CKD) >90 (>60 ml/min/1.73 sqM); Potassium 3.9 mmol/L (3.5-5.1); Sodium 125 mmol/L (137-145)
[2019-11-28] MEDS: IPRATROPIUM-ALBUTEROL 3 ML NEB INHALATION SCH ×4 (08:28→18:51)
[2019-11-28] MEDS: PANTOPRAZOLE 40 MG TABLET PO SCH (09:23)
[2019-11-28] MEDS: ASPIRIN 81 MG PO SCH (09:23)
[2019-11-28] MEDS: amLODIPine 5 MG TAB PO SCH (09:23)
[2019-11-28] MEDS: VITAMIN A 10,000 UNIT CAPSULE PO SCH (09:23)
[2019-11-28] MEDS: BENZOCAINE/MENTHOL LOZENG 1 EACH LOZENGE MUCOUS MEM PRN ×3 (09:24→19:54)
[2019-11-28] MEDS: ENOXAPARIN 40 MG/0.4 ML SYRINGE SQ SCH (09:24)
[2019-11-28] MEDS: CHOLECALCIFEROL 1,000 UNIT TAB PO SCH (09:24)
[2019-11-28] MEDS ORDERED: FUROSEMIDE 10 MG/ML 2 ML VIAL IV ONE (10:23)
[2019-11-28] MEDS ORDERED: FUROSEMIDE 20 MG TAB PO STA (10:29)
--- NOTE | 2019-11-28 10:32 | P.PN ---
Subjective Patient is seen in follow-up for hyponatremia. Sodium level up to 125 today. Patient admits to difficulty with swallowing today. No vomiting or diarrhea. Hemodynamically stable. Good urine output. Vital signs are stable. General: The patient appeared well nourished and normally developed. HEENT: Head exam is unremarkable. Neck is without jugular venous distension. LUNGS: Breath sounds decreased. HEART: Rate and Rhythm are regular. ABDOMEN: Soft, nontender. EXTREMITITES: No clubbing, cyanosis, or edema. Objective - Vital Signs Vital signs: Vital Signs Temp 97.8 F 11/28/19 05:40 Pulse 84 11/28/19 08:38 Resp 16 11/28/19 05:40 BP 161/93 11/28/19 05:40 Pulse Ox 98 11/28/19 08:28 Intake & Output 11/27/19 11/28/19 11/28/19 18:59 06:59 18:59 Intake Total 1700 135 240 Balance 1700 135 240 Weight 66.224 kg Intake: Amount of Fluid Infused ( 1300 ml) Intake, IV Titration 400 Amount Sodium Chloride 0.9% 1, 400 000 ml @ 100 mls/hr IV . Q10H [facility] Rx#:[id number] Oral 135 240 Other: # Voids 1 - Labs CBC & Chem 7: 11/26/19 18:32 11/28/19 06:28 Labs: Abnormal Lab Results - Last 24 Hours (Table) 11/27/19 11/27/19 11/27/19 Range/Units 12:05 12:05 17:30 Sodium 124 L 123 L (137-145) mmol/L Chloride 89 L (98-107) mmol/L Creatinine 0.61 L (0.66-1.25) mg/dL Uric Acid 1.6 L (3.5-8.5) mg/dL 11/28/19 Range/Units 06:28 Sodium 125 L (137-145) mmol/L Chloride 90 L (98-107) mmol/L Creatinine 0.53 L (0.66-1.25) mg/dL Uric Acid (3.5-8.5) mg/dL Assessment and Plan Plan: Assessment: 1. Hypovolemic hyponatremia initially improved with IV hydration. Now euvolemic. Sodium level up to 125 today. Suspect underlying SIADH due to underlying lung mass as well as component of poor solute intake. TSH normal. Urine sodium 82 and urine osmolality 376. 2. Lung mass. Patient states he is scheduled to undergo CAT scan and potential biopsy in December 03. 3. Benign hypertension. Plan: Remains off IV fluids. 1200 mL fluid restriction. Encourage oral intake, particularly protein. Lasix 20 mg once today. Repeat sodium level at 6 PM today. 2 g IV magnesium sulfate today. Bedside swallow eval pending.
[2019-11-28] MEDS: MAGNESIUM SULFATE-D5W PMX 1 GM in DEXTROSE/WATER 1 100ML.BAG IVPB SCH ×2 (11:03→11:46)
[2019-11-28] MEDS: traMADol 50 MG TAB PO SCH (11:45)
--- NOTE | 2019-11-28 16:45 | FL ---
EXAMINATION TYPE: FL barium swallow DATE OF EXAM: 11/28/2019 CLINICAL INDICATION: 64-year-old male trouble swallowing, food and liquid getting stuck at the upper chest level. COMPARISON: None Total Fluoroscopy Time: 2 minutes 42 seconds Total images: 52 FINDINGS: The swallowing mechanism is normal and hypopharyngeal anatomy is preserved. The midthoracic esophagus shows some incomplete distensibility but no discrete mucosal irregularity. The patient took small swallows at a time which limits the degree of esophageal coating and distentio n. No additional fixed narrowing is clearly identified. Moderate tertiary peristaltic contractions are demonstrated. Blunted secondary stripping waves with r esidual contrast remaining in the upper thoracic esophagus when the patient is supine. There are recu rrent bouts of intraesophageal reflux. No persistent filling defect is encountered. Small hiatal hernia. Gastro-oesophageal reflux cannot be elicited during the course of the exam. IMPRESSION: 1. Moderate tertiary peristaltic contractions suggests presbyesophagus. The secondary stripping waves are blunted leaving behind contrast in the upper esophagus. Recurrent episodes of intraesophageal re flux are demonstrated. 2. There is incomplete distensibility along the mid thoracic esophagus. A mild stricture is difficult to exclude. No mucosal irregularity to suggest a malignant stricture. 3. Small hiatal hernia. Gastroesophageal reflux could not be elicited during the course of the exam.
--- NOTE | 2019-11-28 17:39 | P.PN ---
Subjective Progress Note Date: 11/28/19 Principal diagnosis: Hyponatremia Patient was seen and examined. No acute events overnight. Patient reports improvement in his generalized weakness since admission. Patient reports difficulty with the transition of food down his esophagus. He denies any difficulty in his swallow mechanism. He denies any chest pain, shortness of breath or palpitations. No nausea or vomiting. No fever or chills. Objective - Vital Signs Vital signs: Vital Signs Temp 97.7 F 11/28/19 11:44 Pulse 88 11/28/19 15:14 Resp 18 11/28/19 11:44 BP 148/86 11/28/19 11:44 Pulse Ox 97 11/28/19 11:44 Intake & Output 11/27/19 11/28/19 11/28/19 18:59 06:59 18:59 Intake Total 1700 135 820 Output Total 1150 Balance 1700 135 -330 Weight 66.224 kg Intake: Amount of Fluid Infused ( 1300 ml) Intake, IV Titration 400 100 Amount Magnesium Sulfate-D5w Pmx 100 1 gm In Dextrose/Water 1 100ml.bag @ 100 mls/hr IVPB Q1H [facility] Rx#: [id number] Sodium Chloride 0.9% 1, 400 000 ml @ 100 mls/hr IV . Q10H [facility] Rx#:[id number] Oral 135 720 Output: Urine 1150 Other: # Voids 1 - Exam General: [non toxic], [no distress], [appears at stated age] Derm: [warm], [dry] Head: [atraumatic], [normocephalic], [symmetric] Eyes: [EOMI], [no lid lag], [anicteric sclera] Mouth: [no lip lesion], [mucus membranes moist] Cardiovascular: [S1S2 reg], [no murmur], [positive posterior tibial pulse bilateral], Lungs: [CTA bilateral], [no rhonchi, no rales] , [no accessory muscle use] Abdominal: [soft], [ nontender to palpation], [no guarding], [no appreciable organomegaly] Ext: [no gross muscle atrophy], [no edema], [no contractures] Neuro: [no focal neuro deficits] Psych: [Alert], [oriented], [appropriate affect] - Labs CBC & Chem 7: 11/26/19 18:32 11/28/19 06:28 Labs: Abnormal Lab Results - Last 24 Hours (Table) 11/27/19 11/28/19 Range/Units 17:30 06:28 Sodium 123 L 125 L (137-145) mmol/L Chloride 90 L (98-107) mmol/L Creatinine 0.53 L (0.66-1.25) mg/dL Assessment and Plan Assessment: Hyponatremia, 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 -Serum osmolality low suggesting SIADH -Sodium improved from 120-124-125 -Continue fluid restriction -Nephrology is following the patient Dysphagia - Bedside swallow eval done by speech pathology, agreeable for barium swallow - GI will be consulted Lung mass -Patient would like to follow with Oncology here rather than [facility] -Follow Oncology consult Weight loss, lethargy, decreased exercise tolerance -Likely secondary to known lung mass -Patient already scheduled to undergo lung biopsy as outpatient on 12/03 Hypertension -Continue with home meds DVT prophylaxis -Lovenox [Patient's sodium slowly improving with fluid restriction. Plans to recheck sodium tomorrow. Nephrology on board. GI consulted for dysphagia. Oncology consulted to establish case. Patient is pending clinical improvement. Likely DC in 1-2 days.]
[2019-11-28] MEDS ORDERED: DOCUSATE 100 MG CAP PO STA (20:31)
[2019-11-29 07:07] LABS: African American GFR (CKD) >90 (>60 ml/min/1.73 sqM); Anion Gap 8 mmol/L; Blood Urea Nitrogen 13 mg/dL (9-20); Carbon Dioxide 31 mmol/L (22-30); Chloride 87 mmol/L (98-107); Glucose 87 mg/dL (74-99); Magnesium 1.8 mg/dL (1.6-2.3); Non-African American GFR(CKD) >90 (>60 ml/min/1.73 sqM); Potassium 4.1 mmol/L (3.5-5.1); Sodium 126 mmol/L (137-145)
[2019-11-29] MEDS: IPRATROPIUM-ALBUTEROL 3 ML NEB INHALATION SCH ×4 (07:49→19:40)
[2019-11-29] MEDS: ENOXAPARIN 40 MG/0.4 ML SYRINGE SQ SCH (09:09)
[2019-11-29] MEDS: ASPIRIN 81 MG PO SCH (09:52)
[2019-11-29] MEDS: CHOLECALCIFEROL 1,000 UNIT TAB PO SCH (09:52)
[2019-11-29] MEDS: amLODIPine 5 MG TAB PO SCH (09:52)
[2019-11-29] MEDS: PANTOPRAZOLE 40 MG TABLET PO SCH ×2 (09:52→23:38)
[2019-11-29] MEDS: VITAMIN A 10,000 UNIT CAPSULE PO SCH (09:52)
[2019-11-29] MEDS: BENZOCAINE/MENTHOL LOZENG 1 EACH LOZENGE MUCOUS MEM PRN (11:10)
[2019-11-29] MEDS: traMADol 50 MG TAB PO SCH ×2 (11:10→16:52)
--- NOTE | 2019-11-29 11:45 | P.PN ---
Subjective Patient is seen in follow-up for hyponatremia. Sodium level up to 126 today. He did receive a dose of Lasix yesterday but the sodium dropped from 125 to 124. He is maintained on fluid restriction. Scheduled for EGD today. Still complains of difficulty with swallowing. Vital signs are stable. General: The patient appeared well nourished and normally developed. HEENT: Head exam is unremarkable. Neck is without jugular venous distension. LUNGS: Breath sounds decreased. HEART: Rate and Rhythm are regular. ABDOMEN: Soft, nontender. EXTREMITITES: No clubbing, cyanosis, or edema. Objective - Vital Signs Vital signs: Vital Signs Temp 98.0 F 11/29/19 05:00 Pulse 88 11/29/19 11:19 Resp 16 11/29/19 07:40 BP 125/84 11/29/19 05:00 Pulse Ox 94 L 11/29/19 05:00 Intake & Output 11/28/19 11/29/19 11/29/19 18:59 06:59 18:59 Intake Total 820 360 Output Total 1475 700 Balance -655 -340 Weight 66.224 kg Intake: Intake, IV Titration 100 Amount Magnesium Sulfate-D5w Pmx 100 1 gm In Dextrose/Water 1 100ml.bag @ 100 mls/hr IVPB Q1H [facility] Rx#: [id number] Oral 720 360 Output: Urine 1475 700 Other: # Voids 1 - Labs CBC & Chem 7: 11/26/19 18:32 11/29/19 06:08 Labs: Abnormal Lab Results - Last 24 Hours (Table) 11/28/19 11/29/19 Range/Units 17:19 06:08 Sodium 124 L 126 L (137-145) mmol/L Chloride 87 L (98-107) mmol/L Carbon Dioxide 31 H (22-30) mmol/L Creatinine 0.64 L (0.66-1.25) mg/dL Assessment and Plan Plan: Assessment: 1. Hypovolemic hyponatremia initially improved with IV hydration. Now euvol emic. Sodium level up to 126 today. Suspect underlying SIADH due to underlying lung mass as well as component of poor solute intake. TSH normal. Urine sodium 82 and urine osmolality 376. 2. Lung mass. Patient states he is scheduled to undergo CAT scan and potential biopsy in December 03. 3. Benign hypertension. Controlled. 4. Dysphagia status post barium swallow which revealed presbyesophagus. Endoscopy pending. Plan: Remains off IV fluids. 1200 mL fluid restriction. Encourage oral intake, particularly protein. Add sodium chloride tablets. Repeat electrolytes in the morning.
[2019-11-29] MEDS: SODIUM CHLORIDE TAB 1 GM TAB PO SCH ×2 (14:28→20:24)
--- NOTE | 2019-11-29 15:28 | P.PN ---
Subjective Progress Note Date: 11/29/19 Principal diagnosis: Hyponatremia Patient was seen and examined. No acute events overnight. Patient reports improvement in his generalized weakness since admission. Patient reports difficulty with the transition of food down his esophagus. Plans for EGD tomorrow. Sodium improved to 126. He denies any chest pain, shortness of breath or palpitations. No nausea or vomiting. No fever or chills. Objective - Vital Signs Vital signs: Vital Signs Temp 98.3 F 11/29/19 12:06 Pulse 92 11/29/19 15:19 Resp 20 11/29/19 12:06 BP 135/89 11/29/19 12:06 Pulse Ox 94 L 11/29/19 12:06 Intake & Output 11/28/19 11/29/19 11/29/19 18:59 06:59 18:59 Intake Total 820 360 500 Output Total 1475 700 Balance -655 -340 500 Weight 66.224 kg Intake: Intake, IV Titration 100 Amount Magnesium Sulfate-D5w Pmx 100 1 gm In Dextrose/Water 1 100ml.bag @ 100 mls/hr IVPB Q1H TREMAYNE Rx#: [id number] Oral 720 360 500 Output: Urine 1475 700 Other: # Voids 1 - Exam General: [non toxic], [no distress], [appears at stated age] Derm: [warm], [dry] Head: [atraumatic], [normocephalic], [symmetric] Eyes: [EOMI], [no lid lag], [anicteric sclera] Mouth: [no lip lesion], [mucus membranes moist] Cardiovascular: [S1S2 reg], [no murmur], [positive posterior tibial pulse b ilateral], Lungs: [CTA bilateral], [no rhonchi, no rales] , [no accessory muscle use] Abdominal: [soft], [ nontender to palpation], [no guarding], [no appreciable organomegaly] Ext: [no gross muscle atrophy], [no edema], [no contractures] Neuro: [no focal neuro deficits] Psych: [Alert], [oriented], [appropriate affect] - Labs CBC & Chem 7: 11/26/19 18:32 11/29/19 06:08 Labs: Abnormal Lab Results - Last 24 Hours (Table) 11/28/19 11/29/19 Range/Units 17:19 06:08 Sodium 124 L 126 L (137-145) mmol/L Chloride 87 L (98-107) mmol/L Carbon Dioxide 31 H (22-30) mmol/L Creatinine 0.64 L (0.66-1.25) mg/dL Assessment and Plan Assessment: Hyponatremia, 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 -Serum osmolality low suggesting SIADH -Sodium improved from [phone] -Continue fluid restriction -Salt tablets added by nephrology -Nephrology is following the patient Dysphagia -Barium swallow showing presbyesophagus - GI will be consulted and their plans for EGD tomorrow morning Lung mass -Patient would like to follow with Oncology here rather than [place] -Follow Oncology consult, can be done outpatient Weight loss, lethargy, decreased exercise tolerance -Likely secondary to known lung mass -Patient already scheduled to undergo lung biopsy as outpatient on 12/03 Hypertension -Continue with home meds DVT prophylaxis -Lovenox [Patient's sodium slowly improving with fluid restriction. Plans to recheck sodium tomorrow. Nephrology on board. GI consulted for dysphagia, plans for EGD tomorrow. Oncology consulted to establish case. Patient is pending clinical improvement. Likely DC in 1-2 days.]
[2019-11-29] MEDS: IOPAMIDOL CONTRAST (ORAL USE) VIAL PO PRN ×2 (16:51→17:45)
--- NOTE | 2019-11-29 18:52 | CT ---
EXAMINATION TYPE: CT ChestAbdPelvis w con DATE OF EXAM: 11/29/2019 COMPARISON: None HISTORY: lung mass CT DLP: 565.6 mGycm Automated exposure control for dose reduction was used. CONTRAST: Performed with IV Contrast, patient injected with 100 mL of Isovue 300. Images were obtained from the thoracic inlet to the floor the pelvis with IV contrast. There is increased soft tissue density in the mediastinum in the paratracheal region extending into t he subcarinal region and left pulmonary hilum. This is consistent with conglomeration of multiple lym ph nodes that measure up to 4 cm. The heart size is normal. There is no pericardial effusion. Thoraci c aorta is intact. I see no filling defects in the pulmonary arteries. There is adenopathy left pulmo nary hilum with lymph nodes measuring up to 2 cm. The lungs are clear of consolidation. There is mild subsegmental atelectasis at the posterior lung bases. There is no pleural effusion or pneumothorax. Liver spleen stomach pancreas gallbladder appear normal. Bile ducts are not dilated. There is metal a rtifact from the oral contrast in the large bowel and small bowel. The bladder distends smoothly. Kid neys show no evidence of a mass.. Right kidney is mostly obscured by artifact. Right ureter is not di lated. There is no inguinal hernia. There is no free fluid in the pelvis. I see no evidence of abdomi nal mass. I see no sign of retroperitoneal adenopathy. Thoracic vertebra have normal alignment and s pacing. There is no compression fracture. Sternum is intact. Bony pelvis appears intact. There is L5 spondylolysis with mild first-degree L5-S1 spondylolisthesis. IMPRESSION: There is extensive mediastinal and left bronchial adenopathy consistent with malignancy. This could b e lymphoma. No suspicious pulmonary mass. Mass is new compared to old chest CT scan 10/16/2008. Limite d evaluation of the abdomen shows no acute abnormality. No evidence of bowel obstruction. No evidence of adenopathy within the abdomen and pelvis.
--- NOTE | 2019-11-29 19:06 | P.CONS ---
History of Present Illness - Reason for Consult Consult date: 11/29/19 Lung Mass Requesting physician: Yulia Rivera - Chief Complaint Mental Status Changes. - History of Present Illness Mr. Gunn is a pleasant male, poor historian, who has a known remote history of renal cell carcinoma with nephrectomy. He recently was seen for e valuation in August with concerns of Mental status changes and severe confusion. At that time he was found to have middle cerebral aneurysm with subarachnoid hemorrhage and was transferred to [facility] for further intervention. During that time a full work-up revealed Lung Mass. On todays CT scan an increasing mediastinal soft tissue density with diffuse thoracic adenopathy noted. He apparently was set to have a biopsy and PET scan as outpatient although patient states they did not accept his insurance, although he is unsure and asked me to call his . I have attempted twice to contact his at number listed on file with no answer and a "mailbox that has not been set up". He now presents for increased fatigue, 15lb weight loss since august, and decreased urine output. He has a recent history of active tobacco abuse 1-2 packs per day. On admission found to be hyponatremic. NA: 120s. Because of the new pathology in thoracic region Medical Oncology has been asked to further ass ess. Review of Systems ROS unobtainable: due to mental status Past Medical History Past Medical History: Unable to Obtain Additional Past Medical History / Comment(s): lung mass, numerous brain aneurysms, hyponatremia, low urine output, History of Any Multi-Drug Resistant Organisms: None Reported Past Surgical History: Appendectomy, Orthopedic Surgery Additional Past Surgical History / Comment(s): Pt had kidney removed, brain aneurysm fixed, Past Anesthesia/Blood Transfusion Reactions: No Reported Reaction Past Psychological History: No Psychological Hx Reported Smoking Status: Former smoker Past Alcohol Use History: Occasional Past Drug Use History: None Reported - Past Family History Mother Additional Family Medical History / Comment(s): colon cancer Father Family Medical History: No Reported History Additional Family Medical History / Comment(s): of old age Medications and Allergies Home Medications Medication Instructions Recorded Confirmed Type Omeprazole Magnesium [PriLOSEC OTC] 20 mg PO DAILY 08/30/19 11/26/19 History amLODIPine [Norvasc] 5 mg PO DAILY 08/30/19 11/26/19 History traMADol HCL 50 mg PO DAILY@1200 08/30/19 11/26/19 History Albuterol Inhaler [Ventolin Hfa 1 - 2 puff INHALATION RT-Q6H PRN 11/26/19 11/26/19 History Inhaler] Aspirin EC [Ecotrin Low Dose] 81 mg PO DAILY 11/26/19 11/26/19 History Cholecalciferol [Vitamin D3 (25 1,000 unit PO DAILY 11/26/19 11/26/19 History Mcg = 1000 Iu)] Vitamin A 8,000 unit PO DAILY 11/26/19 11/26/19 History Allergies Allergy/AdvReac Type Severity Reaction Status Date / Time codeine AdvReac hyper Verified 11/26/19 18:41 Physical Exam Vitals: Vital Signs Temp Pulse Pulse Resp BP Pulse Ox 11/29/19 15:19 92 11/29/19 15:10 90 11/29/19 12:06 98.3 F 85 20 135/89 94 L 11/29/19 11:19 88 11/29/19 11:10 82 11/29/19 08:00 80 11/29/19 07:50 80 11/29/19 07:40 16 11/29/19 05:00 98.0 F 95 16 125/84 94 L 11/28/19 20:12 97.6 F 96 17 131/79 96 11/28/19 19:05 84 Intake and Output 11/29/19 11/29/19 11/29/19 06:59 14:59 22:59 Intake Total 500 Output Total 350 Balance -350 500 Intake: Oral 500 Output: Urine 350 Other: # Voids 1 Weight 66.224 kg - Constitutional General appearance: average body habitus, cooperative, no acute distress - EENT Eyes: dentition normal, normal appearance ENT: NA/AT, normal oropharynx - Neck Supraclavicular shotty nodes Neck: normal ROM - Respiratory Respiratory: bilateral: CTA - Cardiovascular Rhythm: regular - Gastrointestinal General gastrointestinal: normal bowel sounds, soft - Integumentary Integumentary: pale - Neurologic non-focal - Musculoskeletal Musculoskeletal: generalized weakness - Psychiatric poor historian and poor recognition of facts and events Psychiatric: A&O x's 3, appropriate affect Results CBC & Chem 7: 11/26/19 18:32 11/29/19 06:08 Labs: Abnormal Lab Results - Last 24 Hours (Table) 11/29/19 Range/Units 06:08 Sodium 126 L (137-145) mmol/L Chloride 87 L (98-107) mmol/L Carbon Dioxide 31 H (22-30) mmol/L Creatinine 0.64 L (0.66-1.25) mg/dL CT scan - abdomen: report reviewed CT scan - chest: report reviewed CT scan - pelvis: report reviewed Assessment and Plan Plan: Assessment and Recommendations: New/Increasing Soft Tissue Density in the Mediastinun with likely associated extensive mediastinal and left bronchial adenopathy. - Possibly seen in August at [facility], Per Patient has had delayed diagnostic work-up due to covid pandemic - Attempting to contact , will attempt again over weekend - In the interim Tissue biopsy is needed, Will ask Pulmonary to assess for Bronch and tissue biopsy Hyponatremia: - Nephrology Following - ? Malignancy SIADH syndrome Recent Subarachnoid hemorrage and cerebellar Aneurysms: - WIll obtain records from [facility] to further assess Poor Historian and intermittent MS CHanges: - Unknown procedures performed at outside hospital, will recommend reimaging for metastatic disease to brain as picture is concerning for malignancy - Await recent hospitalization records from [facility] Physician Attest: I have completed the full history and physical and agree with above dictation, dictated as a scribe.
--- NOTE | 2019-11-29 22:41 | CONS ---
CONSULTATION DATE OF DICTATION: 11/29/2019 REASON FOR CONSULTATION: Dysphagia. HISTORY OF PRESENT ILLNESS: The patient is a 64-year-old pleasant white male admitted to the hospital because of weight loss, not feeling well, generalized weakness and decreased urine output. While in the hospital he has been complaining of dysphagia for the last one month duration. He noticed he lost about 10-15 pounds over the last one month. His dysphagia is mostly to solids and occasionally to thick liquids. He underwent a barium esophagogram yesterday that showed evidence of presbyesophagus, but no evidence of esophageal stricture. The patient feels that the food gets stuck, especially with solid food. It gets stuck in his midsternal area once or twice a day. Denies any heartburn. He has been on Prilosec 20 mg daily for almost 10 years for history of gastroesophageal reflux disease. In view of his symptoms, we are consulted for possible EGD. PAST MEDICAL HISTORY: His past medical history is significant for hypertension, gastroesophageal reflux disease, lung mass that was diagnosed recently, which is further investigated. PAST SURGICAL HISTORY: Appendectomy, EGD 10 years ago. SOCIAL HISTORY: Former smoker. No alcohol use. MEDICATIONS: Medications at home include Prilosec, Norvasc, tramadol, Ventolin, aspirin, vitamin D3, vitamin A. ALLERGIES: CODEINE. FAMILY HISTORY: Mother with colon cancer. Father of old age. REVIEW OF SYSTEMS: CARDIOPULMONARY: No chest pain or shortness of breath. GENITOURINARY: No dysuria or hematuria. MUSCULOSKELETAL: Unremarkable. SKIN: Unremarkable. ENDOCRINE: Unremarkable. PSYCHIATRIC: Unremarkable. NEUROLOGY: Unremarkable. ENT/VISION: Unremarkable. CONSTITUTIONAL: No recent weight loss. No fever, chills, night sweats. PHYSICAL EXAMINATION: Blood pressure is 135/89, pulse rate 85, temperature 98.3. HEENT examination unremarkable. Conjunctivae pink. Sclerae anicteric. Oral cavity no lesions. NECK: No JVD or lymph node enlargement. CHEST: Clear to auscultation. HEART: Regular rate and rhythm. ABDOMEN: Soft. Bowel sounds are positive. No organomegaly. EXTREMITIES: No pedal edema. SKIN: No rashes. NEUROLOGIC: Alert and oriented x3. No focal deficits. LABS: WBC 5.3, hemoglobin 14.1, platelets normal. Basic metabolic panel showed sodium of 120. Today it is 126. BUN and creatinine are normal. Barium esophagogram done yesterday showed evidence of presbyesophagus and evidence of gastroesophageal reflux. No stricture or filling defects noted. Small hiatal hernia seen. IMPRESSION: 1. Progressive dysphagia to solids and liquids for the last one month duration. Longstanding history of GERD, on Prilosec 20 mg daily for almost 10 years. Worsening dysphagia lately with a weight loss of 10 pounds. Barium esophagogram done yesterday showed evidence of presbyesophagus with no obvious esophageal stricture. 2. Hyponatremia. 3. Lung mass that is being investigated. RECOMMENDATIONS: I discussed with the patient the barium esophagogram results. Since he continues to have persistent symptoms with food getting stuck in his midsternal area, I have decided to proceed with an endoscopic intervention with possible dilation if indicated. The plan was discussed with the patient. He is agreeable to it. He understands risks, benefits and complications of the procedure. Thank you for this consultation. MMCHIDIL / IJN: [id number] /
[2019-11-30] MEDS ORDERED: PROPOFOL 10 MG/ML 20 ML VIAL IV ONE (07:03)
[2019-11-30] MEDS ORDERED: LACTATED RINGERS 500 ML IV ONE (07:12)
--- NOTE | 2019-11-30 07:22 | P.PCN ---
Date of Procedure: 11/30/19 Procedure(s) Performed: BRIEF HISTORY: Patient is a 64-year-old, pleasant, white male scheduled for an upper endoscopy as a part of evaluation of progressive dysphagia to solids and liquids for the last 4 weeks' duration. He lost 10 pounds. He has long- standing history of GERD and is on Prilosec 20 mg daily for 10 years. Barium esophagogram showed evidence of tertiary contractions with no obvious stricture. PROCEDURE PERFORMED: Esophagogastroduodenoscopy with biopsy. PREOPERATIVE DIAGNOSIS: Progressive dysphagia to solids and liquids for 4 weeks duration. IV sedation per anesthesia. PROCEDURE: After informed consent was obtained, the patient was brought into the endoscopy unit. IV sedation was administered by Anesthesia under continuous monitoring. Initially the Olympus GIF-140 video endoscope was inserted into the mouth. Esophagus intubated without any difficulty. It was gradually advanced into the stomach and duodenum and carefully examined. The bulb and the second part of the duodenum appeared normal. The scope at this time was withdrawn to the stomach, adequately insufflated with air, and upon careful examination, mucosa of the antrum had gastritis and biopsies were done from this area. Mucosa of the body cardia and fundus appeared normal. the GE junction appeared irregular but there were no erosions or ulcerations identified.. The mucosa in the mid and distal esophagus had thickened esophageal folds suspicious for years of age esophagitis and multiple biopsies were done from this area. The rest of the esophagus appeared normal. There were no erosions or ulcerations seen , no evidence of esophageal stricture and the patient tolerated the procedure well. IMPRESSION: 1. No evidence of esophageal stricture. 2. Thickened esophageal folds in the mid and distal esophagus suspicious for years of age esophagitis status post biopsy 3. Antral erosive gastritis. RECOMMENDATIONS: The findings of this examination were discussed with the patient. We will increase the Protonix to 40 mg twice daily and recommended soft diet for now. In the meantime will await the biopsy results. Patient was advised to follow up in office in one to 2 weeks following discharge from the hospital
[2019-11-30] MEDS: IPRATROPIUM-ALBUTEROL 3 ML NEB INHALATION SCH ×4 (07:35→21:23)
[2019-11-30] MEDS: amLODIPine 5 MG TAB PO SCH (07:40)
[2019-11-30] MEDS: CHOLECALCIFEROL 1,000 UNIT TAB PO SCH (07:41)
[2019-11-30] MEDS: ASPIRIN 81 MG PO SCH (07:41)
[2019-11-30] MEDS: traMADol 50 MG TAB PO SCH ×2 (07:41→17:12)
[2019-11-30] MEDS: ENOXAPARIN 40 MG/0.4 ML SYRINGE SQ SCH (07:42)
[2019-11-30] MEDS: BENZOCAINE/MENTHOL LOZENG 1 EACH LOZENGE MUCOUS MEM PRN (07:42)
[2019-11-30] MEDS: PANTOPRAZOLE 40 MG TABLET PO SCH ×2 (07:46→17:13)
[2019-11-30] MEDS: SODIUM CHLORIDE TAB 1 GM TAB PO SCH ×2 (07:46→21:27)
[2019-11-30] MEDS: VITAMIN A 10,000 UNIT CAPSULE PO SCH (07:46)
[2019-11-30 08:01] LABS: Basophils # (A) 0.1 k/uL (0-0.2); Basophils % (A) 1 %; Eosinophils # (A) 0.1 k/uL (0-0.7); Eosinophils % (A) 1 %; HCT 39.9 % (39.0-53.0); HGB 13.9 gm/dL (13.0-17.5); Lymphocytes # (A) 0.9 k/uL (1.0-4.8); Lymphocytes % (A) 13 %; MCH 30.1 pg (25.0-35.0); MCHC 34.9 g/dL (31.0-37.0); MCV 86.2 fL (80.0-100.0); Mean Platelet Volume 6.3; Monocytes # (A) 0.5 k/uL (0-1.0); Monocytes % (A) 7 %; Neutrophils # (A) 5.3 k/uL (1.3-7.7); Neutrophils % (A) 77 %; Platelet Count 322 k/uL (150-450); RBC 4.63 m/uL (4.30-5.90); RDW 12.8 % (11.5-15.5); WBC 6.9 k/uL (3.8-10.6)
[2019-11-30 08:16] LABS: ALT 33 U/L (4-49); AST 34 U/L (17-59); African American GFR (CKD) >90 (>60 ml/min/1.73 sqM); Alkaline Phosphatase 78 U/L (38-126); Anion Gap 5 mmol/L; Blood Urea Nitrogen 12 mg/dL (9-20); Calcium 9.4 mg/dL (8.4-10.2); Carbon Dioxide 32 mmol/L (22-30); Chloride 87 mmol/L (98-107); Glucose 90 mg/dL (74-99); LDH 371 U/L (313-618); Magnesium 1.7 mg/dL (1.6-2.3); Non-African American GFR(CKD) >90 (>60 ml/min/1.73 sqM); Phosphorus 3.8 mg/dL (2.5-4.5); Potassium 5.1 mmol/L (3.5-5.1); Sodium 124 mmol/L (137-145); Total Bilirubin 0.5 mg/dL (0.2-1.3); Total Protein 6.9 g/dL (6.3-8.2); Uric Acid 2.3 mg/dL (3.5-8.5)
--- NOTE | 2019-11-30 10:27 | P.CNPUL ---
History of Present Illness Consult date: 11/30/19 Requesting physician: Rajat Lee Reason for consult: abnormal CXR/CT Chief complaint: Fatigue, weakness History of present illness: This is a very pleasant 64-year-old gentleman who follows with Dr. Saeed as his primary care provider. 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 He was transferred from the emergency room to [facility] where the patient may have had a coil placed. He is somewhat of a poor historian. Records are not available currently. During that workup he was not ed to have evidence of COPD and bulkiness of the left pulmonary hilum. Apparently while at [place] he was seen by pulmonary team and was scheduled to have a biopsy just prior to the Covid pandemic which ended up being canceled. He is scheduled for a biopsy on 12/04/2019 there. PET scan was supposed to be arranged as well. In the interim, however the patient developed increased weakness and fatigue and presented here to the emergency room on 11/26/2019. He has had approximate 14 pounds weight loss since. He has noticed a change in his voice. He's had difficulty swallowing. Computed tomography scan of the chest here revealed an extensive mediastinal and left bronchial adenopathy consistent with malignancy. Lymphoma within the differential however the patient has had hyponatremia in the smoking history most likely small cell lung cancer. Abdominal scan reveals no acute abnormalities. No evidence of adenopathy within the abdomen and pelvis. He did undergo EGD today which revealed no evidence of esophageal stricture. There is thickened esophageal folds in the mid and distal esophagus suspicious for years of age esophagitis status post biopsy. Antral erosive gastritis. His presenting sodium was 120. Currently 124. Nephrology is on the case. The patient is seen today in consultation to have a biopsy arranged. He is currently awake and alert in no acute distress. Maintaining O2 saturations in the 90s on room air. White count 6.9. Hemoglobin 13.9. Sodium 124. Potassium 5.1. Bicarb 32. Creatinine 0.66. Calcium 9.4. Review of Systems REVIEW OF SYSTEMS: CONSTITUTIONAL: Positive for significant weight loss.. EYES: Denies change in vision. EARS, NOSE, MOUTH, THROAT: Denies headaches, denies sore throat. CARDIOVASCULAR: Denies chest pain, palpitations or syncopal episodes. RESPIRATORY: Denies shortness of breath, cough, congestion or hemoptysis. GASTROINTESTINAL: Denies change in appetite, denies abdominal pain GENITOURINARY: Denies hematuria, denies infections. MUSKULOSKELETAL: Denies pain, denies swelling. INTEGUMENTARY: Denies rash, denies eczema. NEUROLOGICAL: Poor historian, no recent seizure activity. PSYCHIATRIC: Denies anxiety, denies depression. HEMATOLOGIC/LYMPHATIC: Denies anemia, denies enlarged lymph nodes. Past Medical History Past Medical History: Unable to Obtain Additional Past Medical History / Comment(s): lung mass, numerous brain an eurysms, hyponatremia, low urine output, History of Any Multi-Drug Resistant Organisms: None Reported Past Surgical History: Appendectomy, Orthopedic Surgery Additional Past Surgical History / Comment(s): Pt had kidney removed, brain aneurysm fixed, Past Anesthesia/Blood Transfusion Reactions: No Reported Reaction Past Psychological History: No Psychological Hx Reported Smoking Status: Former smoker Past Alcohol Use History: Occasional Past Drug Use History: None Reported - Past Family History Mother Additional Family Medical History / Comment(s): colon cancer Father Family Medical History: No Reported History Additional Family Medical History / Comment(s): of old age Medications and Allergies Home Medications Medication Instructions Recorded Confirmed Type Omeprazole Magnesium [PriLOSEC OTC] 20 mg PO DAILY 08/30/19 11/26/19 History amLODIPine [Norvasc] 5 mg PO DAILY 08/30/19 11/26/19 History traMADol HCL 50 mg PO DAILY@1200 08/30/19 11/26/19 History Albuterol Inhaler [Ventolin Hfa 1 - 2 puff INHALATION RT-Q6H PRN 11/26/19 11/26/19 History Inhaler] Aspirin EC [Ecotrin Low Dose] 81 mg PO DAILY 11/26/19 11/26/19 History Cholecalciferol [Vitamin D3 (25 1,000 unit PO DAILY 11/26/19 11/26/19 History Mcg = 1000 Iu)] Vitamin A 8,000 unit PO DAILY 11/26/19 11/26/19 History Allergies Allergy/AdvReac Type Severity Reaction Status Date / Time codeine AdvReac hyper Verified 11/26/19 18:41 Physical Exam Vitals: Vital Signs Temp Pulse Pulse Resp BP Pulse Ox 11/30/19 07:47 78 11/30/19 07:35 78 99 11/30/19 07:30 98.2 F 84 17 127/82 96 11/30/19 05:00 98 F 79 18 152/74 98 11/29/19 20:30 97.9 F 77 16 163/97 96 11/29/19 19:53 90 11/29/19 19:41 88 11/29/19 15:19 92 11/29/19 15:10 90 11/29/19 12:06 98.3 F 85 20 135/89 94 L 11/29/19 11:19 88 11/29/19 11:10 82 Intake and Output 11/29/19 11/30/19 11/30/19 22:59 06:59 14:59 Intake Total 240 100 Balance 240 100 Intake: IV 100 Oral 240 Other: Voiding Method Toilet # Voids 1 1 GENERAL EXAM: Alert, pleasant 64-year-old gentleman, on room air, comfortable in no apparent distress. HEAD: Normocephalic. EYES: Normal reaction of pupils, equal size. NOSE: Clear with pink turbinates. THROAT: No erythema or exudates. NECK: No masses, no JVD. CHEST: No chest wall deformity. LUNGS: Equal air entry with no crackles, wheeze, rhonchi or dullness. CVS: S1 and S2 normal with no audible murmur, regular rhythm. ABDOMEN: No hepatosplenomegaly, normal bowel sounds, no guarding or rigidity. SPINE: No scoliosis or deformity SKIN: No rashes CENTRAL NERVOUS SYSTEM: No focal deficits, tone is normal in all 4 extremities. EXTREMITIES: There is no peripheral edema. No clubbing, no cyanosis. Periph eral pulses are intact. Results - Laboratory Findings CBC and BMP: 11/30/19 07:34 11/30/19 07:34 PT/INR, D-dimer D-Dimer 0.26 mg/L FEU (<0.60) 11/26/19 18:32 Abnormal lab findings: Abnormal Labs 11/26/19 11/26/19 11/27/19 17:13 18:32 03:37 Lymphocytes # Sodium 120 L Chloride 83 L Carbon Dioxide BUN 8 L Creatinine 0.61 L Glucose 114 H Osmolality 247 L* Uric Acid Urine Ketones Trace H 11/27/19 11/27/19 11/27/19 03:37 12:05 12:05 Lymphocytes # Sodium 120 L 124 L Chloride 89 L 89 L Carbon Dioxide BUN Creatinine 0.53 L 0.61 L Glucose Osmolality Uric Acid 1.6 L Urine Ketones 11/27/19 11/28/19 11/28/19 17:30 06:28 17:19 Lymphocytes # Sodium 123 L 125 L 124 L Chloride 90 L Carbon Dioxide BUN Creatinine 0.53 L Glucose Osmolality Uric Acid Urine Ketones 11/29/19 11/30/19 11/30/19 06:08 07:34 07:34 Lymphocytes # 0.9 L Sodium 126 L 124 L Chloride 87 L 87 L Carbon Dioxide 31 H 32 H BUN Creatinine 0.64 L Glucose Osmolality Uric Acid 2.3 L Urine Ketones - Diagnostic Findings Chest x-ray: image reviewed CT scan - chest: image reviewed Assessment and Plan Assessment: 1 Altered mental status secondary to hyponatremia 2 Extensive mediastinal and left bronchial adenopathy, suspect small cell lung cancer and the presence of hyponatremia and chronic tobacco dependence versus possible lymphoma 3 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 King CAT scan and labs reviewed Suspect small cell lung cancer versus lymphoma Plan for bronchoscopy with biopsies of the mediastinal lymph nodes on Monday The patient could be discharged home once cleared medically and biopsies could be done in the outpatient setting I, the cosigning physician, performed a history & physical examination of the patient. Lungs sounds are clear. Maintaining good O2 saturations in the 90s on room air. I discussed the assessment and plan of care with my nurse practitioner, Nara Mclean. I attest to the above consultation as dictated by her. Time with Patient: Greater than 30
[2019-11-30] MEDS ORDERED: TOLVAPTAN 15 MG 1/2 TABLET PO ONE (13:00)
--- NOTE | 2019-11-30 14:24 | P.PN ---
Subjective Progress Note Date: 11/30/19 Follow-up for hyponatremia and Objective - Vital Signs Vital signs: Vital Signs Temp 97.9 F 11/30/19 11:45 Pulse 85 11/30/19 11:45 Resp 17 11/30/19 11:45 BP 144/86 11/30/19 11:45 Pulse Ox 95 11/30/19 11:45 Intake & Output 11/29/19 11/30/19 11/30/19 18:59 06:59 18:59 Intake Total 500 240 100 Balance 500 240 100 Weight 66.224 kg Intake: IV 100 Oral 500 240 Other: Voiding Method Toilet # Voids 1 - Exam No acute distress S1-S2 heard Lungs clear Abdomen soft No edema - Labs CBC & Chem 7: 11/30/19 07:34 11/30/19 07:34 Labs: Abnormal Lab Results - Last 24 Hours (Table) 11/30/19 11/30/19 Range/Units 07:34 07:34 Lymphocytes # 0.9 L (1.0-4.8) k/uL Sodium 124 L (137-145) mmol/L Chloride 87 L (98-107) mmol/L Carbon Dioxide 32 H (22-30) mmol/L Uric Acid 2.3 L (3.5-8.5) mg/dL Assessment and Plan Assessment: #1 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
--- NOTE | 2019-11-30 15:39 | P.PN ---
Subjective Progress Note Date: 11/30/19 Principal diagnosis: Hyponatremia Patient was seen and examined. No acute events overnight. Patient reports improvement in his generalized weakness since admission. Patient reports difficulty with the transition of food down his esophagus. EGD was done which showed no evidence of esophageal stricture, thickened esophageal folds suspicious for esophagitis status post biopsy and antral erosive gastritis. Sodium slightly decreased to 124. Discussed with oil speculator, plans for tolvaptan. He denies any chest pain, shortness of breath or palpitations. No nausea or vomiting. No fever or chills. Objective - Vital Signs Vital signs: Vital Signs Temp 97.9 F 11/30/19 11:45 Pulse 80 11/30/19 15:24 Resp 17 11/30/19 11:45 BP 144/86 11/30/19 11:45 Pulse Ox 95 11/30/19 11:45 Intake & Output 11/29/19 11/30/19 11/30/19 18:59 06:59 18:59 Intake Total 500 240 580 Balance 500 240 580 Weight 66.224 kg Intake: IV 100 Oral 500 240 480 Other: Voiding Method Toilet # Voids 1 - Exam General: [non toxic], [no distress], [appears at stated age] Derm: [warm], [dry] Head: [atraumatic], [normocephalic], [symmetric] Eyes: [EOMI], [no lid lag], [anicteric sclera] Mouth: [no lip lesion], [mucus membranes moist] Cardiovascular: [S1S2 reg], [no murmur], [positive posterior tibial pulse bilateral], Lungs: [CTA bilateral], [no rhonchi, no rales] , [no accessory muscle use] Abdominal: [soft], [ nontender to palpation], [no guarding], [no appreciable organomegaly] Ext: [no gross muscle atrophy], [no edema], [no contractures] Neuro: [no focal neuro deficits] Psych: [Alert], [oriented], [appropriate affect] - Labs CBC & Chem 7: 11/30/19 07:34 11/30/19 07:34 Labs: Abnormal Lab Results - Last 24 Hours (Table) 11/30/19 11/30/19 Range/Units 07:34 07:34 Lymphocytes # 0.9 L (1.0-4.8) k/uL Sodium 124 L (137-145) mmol/L Chloride 87 L (98-107) mmol/L Carbon Dioxide 32 H (22-30) mmol/L Uric Acid 2.3 L (3.5-8.5) mg/dL Assessment and Plan Assessment: Hyponatremia, 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 -Serum osmolality low suggesting SIADH -Sodium improved from [id number] -Continue fluid restriction -Salt tablets added by nephrology, plans for Tolvaptan today -Nephrology is following the patient Dysphagia -Barium swallow showing presbyesophagus -EGD showing no strictures, thickening of esophageal fold suspicious for esophagitis status post biopsy and antral erosive gastritis Lung mass -Patient would like to follow with Oncology here rather than [place] -Plans for biopsy of lung mass by pulmonology on Monday -Oncology consult, can be done outpatient after the biopsy Weight loss, lethargy, decreased exercise tolerance -Likely secondary to known lung mass Hypertension -Continue with home meds DVT prophylaxis -Lovenox [Patient's sodium continues to be decreased, medications adjusted by nephrology. Plans to recheck sodium tomorrow. Plans for biopsy of lung mass on Monday. Patient will likely be discharged after his biopsy to follow oncology in the outpatient setting. Likely DC in 1-2 days.]
--- NOTE | 2019-11-30 15:57 | P.PN ---
Subjective Progress Note Date: 11/30/19 Principal diagnosis: Enlarged LN in Lung Status Post EGD and planning [place] on Monday. Per patient has been very labile in emotions and angry. She said initially his demeanor and confusion improved but recently its worsening again, therefore will need to further evaluate brain. He will need Pre-medication prior Objective - Vital Signs Vital signs: Vital Signs Temp 97.9 F 11/30/19 11:45 Pulse 80 11/30/19 15:24 Resp 17 11/30/19 11:45 BP 144/86 11/30/19 11:45 Pulse Ox 95 11/30/19 11:45 Intake & Output 11/29/19 11/30/19 11/30/19 18:59 06:59 18:59 Intake Total 500 240 100 Balance 500 240 100 Weight 66.224 kg Intake: IV 100 Oral 500 240 Other: Voiding Method Toilet # Voids 1 - Exam - Constitutional General appearance: average body habitus, cooperative, no acute distress - EENT Eyes: dentition normal, normal appearance ENT: NA/AT, normal oropharynx - Neck Supraclavicular shotty nodes Neck: normal ROM - Respiratory Respiratory: bilateral: CTA - Cardiovascular Rhythm: regular - Gastrointestinal General gastrointestinal: normal bowel sounds, soft - Integumentary Integumentary: pale - Neurologic non-focal - Musculoskeletal Musculoskeletal: generalized weakness - Psychiatric poor historian and poor recognition of facts and events Psychiatric: A&O x's 3, appropriate affect - Labs CBC & Chem 7: 11/30/19 07:34 11/30/19 07:34 Labs: Abnormal Lab Results - Last 24 Hours (Table) 11/30/19 11/30/19 Range/Units 07:34 07:34 Lymphocytes # 0.9 L (1.0-4.8) k/uL Sodium 124 L (137-145) mmol/L Chloride 87 L (98-107) mmol/L Carbon Dioxide 32 H (22-30) mmol/L Uric Acid 2.3 L (3.5-8.5) mg/dL Assessment and Plan Plan: Assessment and Recommendations: New/Increasing Soft Tissue Density in the Mediastinun with likely associated extensive mediastinal and left bronchial adenopathy. - Possibly seen in August at [facility], Per Patient has had delayed diagnostic work-up due to covid pandemic - Attempting to contact , will attempt again over weekend - In the interim Tissue biopsy is needed. - Pulmonary planning bronch Monday - Status Hyponatremia: - Nephrology Following - ? 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
[2019-12-01 07:26] LABS: African American GFR (CKD) >90 (>60 ml/min/1.73 sqM); Anion Gap 6 mmol/L; Blood Urea Nitrogen 15 mg/dL (9-20); Carbon Dioxide 31 mmol/L (22-30); Chloride 96 mmol/L (98-107); Glucose 95 mg/dL (74-99); Non-African American GFR(CKD) >90 (>60 ml/min/1.73 sqM); Potassium 4.9 mmol/L (3.5-5.1); Sodium 133 mmol/L (137-145)
[2019-12-01] MEDS: IPRATROPIUM-ALBUTEROL 3 ML NEB INHALATION SCH ×4 (07:30→19:27)
[2019-12-01 07:37] LABS: Calcium 9.8 mg/dL (8.4-10.2)
[2019-12-01] MEDS: ENOXAPARIN 40 MG/0.4 ML SYRINGE SQ SCH (07:55)
[2019-12-01] MEDS: PANTOPRAZOLE 40 MG TABLET PO SCH ×2 (07:56→16:34)
[2019-12-01] MEDS: traMADol 50 MG TAB PO SCH ×2 (07:56→16:34)
[2019-12-01] MEDS: amLODIPine 5 MG TAB PO SCH (07:56)
[2019-12-01] MEDS: CHOLECALCIFEROL 1,000 UNIT TAB PO SCH (07:56)
[2019-12-01] MEDS: SODIUM CHLORIDE TAB 1 GM TAB PO SCH ×2 (07:56→20:31)
[2019-12-01] MEDS: ASPIRIN 81 MG PO SCH (07:57)
[2019-12-01] MEDS: VITAMIN A 10,000 UNIT CAPSULE PO SCH (07:57)
--- NOTE | 2019-12-01 11:29 | P.PN ---
Subjective Progress Note Date: 12/01/19 Principal diagnosis: Hyponatremia, extensive mediastinal and left bronchial adenopathy This is a very pleasant 64-year-old gentleman who follows with Dr. Saeed as his primary care provider. 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 He was transferred from the emergency room to [facility] where the patient may have had a coil placed. He is somewhat of a poor historia n. Records are not available currently. During that workup he was noted to have evidence of COPD and bulkiness of the left pulmonary hilum. Apparently while at [place] he was seen by pulmonary team and was scheduled to have a biopsy just prior to the Covid pandemic which ended up being canceled. He is scheduled for a biopsy on 12/04/2019 there. PET scan was supposed to be arranged as well. In the interim, however the patient developed increased weakness and fatigue and presented here to the emergency room on 11/26/2019. He has had approximate 14 pounds weight loss since. He has noticed a change in his voice. He's had difficulty swallowing. Computed tomography scan of the chest here revealed an extensive mediastinal and left bronchial adenopathy consistent with malignancy. Lymphoma within the differential however the patient has had hyponatremia in the smoking history most likely small cell lung cancer. Abdominal scan reveals no acute abnormalities. No evidence of adenopathy within the abdomen and pelvis. He did undergo EGD today which revealed no evidence of esophageal stricture. There is thickened esophageal folds in the mid and distal esophagus suspicious for years of age esophagitis status post biopsy. Antral erosive gastritis. His presenting sodium was 120. Currently 124. Nephrology is on the case. The patient is seen today in consultation to have a biopsy arranged. He is currently awake and alert in no acute distress. Maintaining O2 saturations in the 90s on room air. White count 6.9. Hemoglobin 13.9. Sodium 124. Potassium 5.1. Bicarb 32. Creatinine 0.66. Calcium 9.4. The patient is seen today 12/01/2019 in follow-up on the regular medical floor. He is currently awake and alert in no acute distress. No shortness of breath, cough or congestion. Maintaining O2 saturations in the 90s on room air. Sodium 133 today. Potassium 4.9. Bicarb 31. Creatinine 0.80. No dizziness, weakness or fatigue. Objective - Vital Signs Vital signs: Vital Signs Temp 98.3 F 12/01/19 05:00 Pulse 92 12/01/19 11:21 Resp 16 12/01/19 05:00 BP 134/79 12/01/19 05:00 Pulse Ox 96 12/01/19 07:30 Intake & Output 11/30/19 12/01/19 12/01/19 18:59 06:59 18:59 Intake Total 580 240 Output Total 1650 700 450 Balance -1070 -460 -450 Intake: IV 100 Oral 480 240 Output: Urine 1650 700 450 Other: Voiding Method Toilet Toilet # Voids 2 - Exam GENERAL EXAM: Alert, active, pleasant 64-year-old gentleman, on room air, comfortable in no apparent distress. HEAD: Normocephalic. EYES: Normal reaction of pupils, equal size. NOSE: Clear with pink turbinates. THROAT: No erythema or exudates. NECK: No masses, no JVD. CHEST: No chest wall deformity. LUNGS: Equal air entry with no crackles, wheeze, rhonchi or dullness. CVS: S1 and S2 normal with no audible murmur, regular rhythm. ABDOMEN: No hepatosplenomegaly, normal bowel sounds, no guarding or rigidity. SPINE: No scoliosis or deformity SKIN: No rashes CENTRAL NERVOUS SYSTEM: No focal deficits, tone is normal in all 4 extremities. EXTREMITIES: There is no peripheral edema. No clubbing, no cyanosis. Peripheral pulses are intact. 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 King Suspect small cell lung cancer versus lymphoma Plan for bronchoscopy with biopsies of the mediastinal lymph nodes on Monday The patient could be discharged home once cleared medically and biopsies could be done in the outpatient setting I, the cosigning physician, performed a history & physical examination of the patient. Lungs sounds are clear. Maintaining good O2 saturations in the 90s on room air. I discussed the assessment and plan of care with my nurse practitioner, Nara Mclean. I attest to the above note as dictated by her.
--- NOTE | 2019-12-01 14:05 | P.PN ---
Subjective Progress Note Date: 12/01/19 Follow-up for hyponatremia and Doing better today Objective - Vital Signs Vital signs: Vital Signs Temp 98.5 F 12/01/19 11:27 Pulse 87 12/01/19 11:27 Resp 17 12/01/19 11:27 BP 145/91 12/01/19 11:27 Pulse Ox 97 12/01/19 11:27 Intake & Output 11/30/19 12/01/19 12/01/19 18:59 06:59 18:59 Intake Total 580 240 Output Total 1650 700 450 Balance -1070 -460 -450 Intake: IV 100 Oral 480 240 Output: Urine 1650 700 450 Other: Voiding Method Toilet Toilet # Voids 2 2 - Exam No acute distress S1-S2 heard Lungs clear Abdomen soft No edema - Labs CBC & Chem 7: 11/30/19 07:34 12/01/19 06:43 Labs: Abnormal Lab Results - Last 24 Hours (Table) 12/01/19 Range/Units 06:43 Sodium 133 L (137-145) mmol/L Chloride 96 L (98-107) mmol/L Carbon Dioxide 31 H (22-30) mmol/L Assessment and Plan Assessment: #1 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 #3 stable from nephrology point of view for discharge to be followed up in the clinic in 1-2 weeks with repeat BMP.
--- NOTE | 2019-12-01 16:44 | PN ---
PROGRESS NOTE DATE OF DICTATION: December 01, 2019 Patient is a 64-year-old white male who underwent an upper endoscopy yesterday for dysphagia for the last few weeks duration. Upper endoscopy done yesterday that showed esophageal dysmotility, but no obvious esophageal stricture identified. However, there was mild esophagitis seen and multiple biopsies were done to rule out eosinophilic esophagitis. In the meantime, patient is maintained on Protonix 40 mg twice daily. This morning he ate his breakfast. He is able to swallow. He denies any symptoms. PHYSICAL EXAMINATION: He appears comfortable. No apparent distress. Vital signs stable. Blood pressure is 112/49, pulse rate 82 per minute and afebrile. HEENT examination unremarkable. Conjunctivae pink. Sclerae anicteric. Oral cavity no lesions. NECK no JVD or lymph node enlargement. CHEST was clear to auscultation. HEART: Regular rate and rhythm. ABDOMEN: Soft, bowel sounds are positive. No organomegaly. EXTREMITIES no pedal edema. NEURO he is alert and oriented x3. No focal deficits. LABS: From today, CBC with differential count is within normal limits. IMPRESSION: 1. Dysphagia, status post EGD yesterday that showed no evidence of esophageal stricture. There was some esophagitis seen. Biopsies were done which are still pending. Presently on Protonix 40 mg twice daily and doing somewhat better. 2. Lung mass for which she is being followed by Oncology. 3. Hyponatremia, which is improving. RECOMMENDATIONS: 1. Continue with Protonix 40 mg twice daily. 2. Encouraged to continue with soft diet. 3. He was advised to follow up in the office in 2 weeks following discharge from the hospital. 4. We will follow with you closely. Thank you for this consultation. MMODL / IJN: [id number] /
--- NOTE | 2019-12-01 16:52 | P.PN ---
Subjective Progress Note Date: 12/01/19 Principal diagnosis: Hyponatremia Patient was seen and examined. No acute events overnight. Patient reportssignificant improvement in his generalized weakness since admission. P ryan reports improvement in his ability to swallow and keep down his food as well. EGD was done which showed no evidence of esophageal stricture, thickened esophageal folds suspicious for esophagitis status post biopsy and antral erosive gastritis. Sodium increased to 133 with tolvaptan. He denies any chest pain, shortness of breath or palpitations. No nausea or vomiting. No fever or chills. Objective - Vital Signs Vital signs: Vital Signs Temp 98.5 F 12/01/19 11:27 Pulse 90 12/01/19 15:16 Resp 17 12/01/19 11:27 BP 145/91 12/01/19 11:27 Pulse Ox 97 12/01/19 11:27 Intake & Output 11/30/19 12/01/19 12/01/19 18:59 06:59 18:59 Intake Total 580 240 Output Total 1650 700 450 Balance -1070 -460 -450 Intake: IV 100 Oral 480 240 Output: Urine 1650 700 450 Other: Voiding Method Toilet Toilet # Voids 2 2 - Exam General: [non toxic], [no distress], [appears at stated age] Derm: [warm], [dry] Head: [atraumatic], [normocephalic], [symmetric] Eyes: [EOMI], [no lid lag], [anicteric sclera] Mouth: [no lip lesion], [mucus membranes moist] Cardiovascular: [S1S2 reg], [no murmur], [positive posterior tibial pulse bilateral], Lungs: [CTA bilateral], [no rhonchi, no rales] , [no accessory muscle use] Abdominal: [soft], [ nontender to palpation], [no guarding], [no appreciable organomegaly] Ext: [no gross muscle atrophy], [no edema], [no contractures] Neuro: [no focal neuro deficits] Psych: [Alert], [oriented], [appropriate affect] - Labs CBC & Chem 7: 11/30/19 07:34 12/01/19 06:43 Labs: Abnormal Lab Results - Last 24 Hours (Table) 12/01/19 Range/Units 06:43 Sodium 133 L (137-145) mmol/L Chloride 96 L (98-107) mmol/L Carbon Dioxide 31 H (22-30) mmol/L Assessment and Plan Assessment: Hyponatremia, 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 -Serum osmolality low suggesting SIADH -Sodium improved from [id number] -Continue fluid restriction -Salt tablets added by nephrology, s/p 1 dose of Tolvaptan yesterday -Nephrology is following the patient Dysphagia -Barium swallow showing presbyesophagus -EGD showing no strictures, thickening of esophageal fold suspicious for esophagitis status post biopsy and antral erosive gastritis Lung mass -Patient would like to follow with Oncology here rather than [facility] -Plans for biopsy of lung mass by pulmonology on Monday -Oncology consult, can be done outpatient after the biopsy Weight loss, lethargy, decreased exercise tolerance -Likely secondary to known lung mass Hypertension -Continue with home meds DVT prophylaxis -Lovenox [Patient's sodium considerably improved today. Plans to recheck sodium tomorrow. Plans for biopsy of lung mass tomorrow. Patient will likely be discharged after his biopsy to follow oncology in the outpatient setting. Likely DC tomorrow.]
[2019-12-01] MEDS: BENZOCAINE/MENTHOL LOZENG 1 EACH LOZENGE MUCOUS MEM PRN (20:37)
--- NOTE | 2019-12-01 21:50 | P.PN ---
Subjective Progress Note Date: 12/01/19 Principal diagnosis: Enlarged LN in Lung Objective - Vital Signs Vital signs: Vital Signs Temp 97.5 F L 12/01/19 20:33 Pulse 88 12/01/19 20:33 Resp 20 12/01/19 20:33 BP 145/88 12/01/19 20:33 Pulse Ox 95 12/01/19 20:33 Intake & Output 12/01/19 12/01/19 12/02/19 06:59 18:59 06:59 Intake Total 240 Output Total 700 450 Balance -460 -450 Intake: Oral 240 Output: Urine 700 450 Other: Voiding Method Toilet Toilet # Voids 2 2 - Exam - Constitutional General appearance: average body habitus, cooperative, no acute distress - EENT Eyes: dentition normal, normal appearance ENT: NA/AT, normal oropharynx - Neck Supraclavicular shotty nodes Neck: normal ROM - Respiratory Respiratory: bilateral: CTA - Cardiovascular Rhythm: regular - Gastrointestinal General gastrointestinal: normal bowel sounds, soft - Integumentary Integumentary: pale - Neurologic non-focal - Musculoskeletal Musculoskeletal: generalized weakness - Psychiatric poor historian and poor recognition of facts and events Psychiatric: A&O x's 3, appropriate affect - Labs CBC & Chem 7: 11/30/19 07:34 12/01/19 06:43 Labs: Abnormal Lab Results - Last 24 Hours (Table) 12/01/19 Range/Units 06:43 Sodium 133 L (137-145) mmol/L Chloride 96 L (98-107) mmol/L Carbon Dioxide 31 H (22-30) mmol/L Assessment and Plan Plan: Assessment and Recommendations: New/Increasing Soft Tissue Density in the Mediastinun with likely associated extensive mediastinal and left bronchial adenopathy. - Possibly seen in August at [facility], Per Patient has had delayed diagnostic work-up due to covid pandemic - Attempting to contact , will attempt again over weekend - In the interim Tissue biopsy is needed. - Pulmonary planning bronch Monday - Status post EGD - Uric Acid and LDH are within normal - MRI Brain for staging Hyponatremia: improving 133 today - Nephrology Following - ? 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
[2019-12-02] MEDS ORDERED: LORazepam 0.5 MG TAB PO SCH (00:01)
[2019-12-02] MEDS: IPRATROPIUM-ALBUTEROL 3 ML NEB INHALATION SCH ×3 (06:57→16:21)
--- NOTE | 2019-12-02 11:41 | P.PN ---
Subjective Progress Note Date: 12/02/19 Principal diagnosis: Enlarged LN in Lung Sodium levels continue to improve. EGD bx pending. Plan for Bronchoscopy today. He is already scheduled for PET as outpatient through Dr. Titus enriquez out of [facility] per the patients . Objective - Vital Signs Vital signs: Vital Signs Temp 98.1 F 12/02/19 05:00 Pulse 80 12/02/19 11:05 Resp 14 12/02/19 08:00 BP 159/84 12/02/19 05:00 Pulse Ox 95 12/02/19 05:00 Intake & Output 12/01/19 12/02/19 12/02/19 18:59 06:59 18:59 Intake Total 0 Output Total 450 600 Balance -450 -600 0 Intake: Oral 0 Output: Urine 450 600 Other: Voiding Method Toilet Toilet Toilet # Voids 2 1 - Exam - Constitutional General appearance: average body habitus, cooperative, no acute distress - EENT Eyes: dentition normal, normal appearance ENT: NA/AT, normal oropharynx - Neck Supraclavicular shotty nodes Neck: normal ROM - Respiratory Respiratory: bilateral: CTA - Cardiovascular Rhythm: regular - Gastrointestinal General gastrointestinal: normal bowel sounds, soft - Integumentary Integumentary: pale - Neurologic non-focal - Musculoskeletal Musculoskeletal: generalized weakness - Psychiatric poor historian and poor recognition of facts and events Psychiatric: A&O x's 3, appropriate affect - Labs CBC & Chem 7: 11/30/19 07:34 12/02/19 09:34 Labs: Abnormal Lab Results - Last 24 Hours (Table) 12/02/19 Range/Units 09:34 Sodium 132 L (137-145) mmol/L Assessment and Plan Plan: Assessment and Recommendations: New/Increasing Soft Tissue Density in the Mediastinun with likely associated extensive mediastinal and left bronchial adenopathy. - Possibly seen in August at [facility], Per Patient has had delayed diagnostic work-up due to covid pandemic - In the interim Tissue biopsy is needed. - Pulmonary planning bronch Monday - Status post EGD - Uric Acid and LDH are within normal - MRI Brain for staging - Will need premedication with Ativan prior. One time order has been placed Hyponatremia: improving - Nephrology Following - ? 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
[2019-12-02] MEDS: PANTOPRAZOLE 40 MG TABLET PO SCH ×2 (13:15→15:52)
[2019-12-02] MEDS: traMADol 50 MG TAB PO SCH ×2 (13:15→15:52)
[2019-12-02] MEDS ORDERED: PROPOFOL 10 MG/ML 20 ML VIAL IV ONE (13:30)
[2019-12-02] MEDS ORDERED: ePHEDrine SULFATE/0.9% NACL/PF 50 MG/5 ML SYRINGE IV ONE (13:30)
[2019-12-02] MEDS ORDERED: SUCCINYLCHOLINE CHLORIDE 100 MG/5 ML SYR IV ONE (13:30)
[2019-12-02] MEDS ORDERED: IV FLUID CONTINUATION 500 ML IV ONE (13:34)
--- NOTE | 2019-12-02 15:03 | PN ---
PROGRESS NOTE PULMONARY/CRITICAL CARE PROGRESS NOTE: DATE OF SERVICE: 12/02/2019 This is a 64-year-old male with a history of mental status changes, hyponatremia, and extensive mediastinal adenopathy. The patient is scheduled for a procedure today. We are planning to do bronchoscopy airway examination and possible transbronchial needle aspiration of his subcarinal adenopathy. We have a very late afternoon OR time. 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 Currently, the patient is ready to be discharged from the hospital. He is anxious to get out here. Current vital signs include temperature 98.1 heart rate 80, respiratory rate 14, blood pressure 159/84 mean 109, room air saturation 95%. Appears in no acute distress. HEENT: Examination is grossly unremarkable. Mucous membranes are moist. NECK: Supple. Full range of motion. No adenopathy. Neck veins are flat. CARDIOVASCULAR: Examination reveals regular rhythm and rate. LUNGS: Reveal clear breath sounds. No wheezes. ABDOMEN: Soft, bowel sounds are heard. EXTREMITIES: Intact. No cyanosis, clubbing, or edema. SKIN: Without rash. NEUROLOGIC: Examination is nonfocal. LAB DATA: Reviewed. Nothing new from today. Microbiology is negative or pending. No recent x-ray to report. ASSESSMENT: 1. Mental status changes, secondary to hyponatremia. 2. Hyponatremia, likely secondary to SIADH, the patient has extensive mediastinal and subcarinal adenopathy, potentially consistent with small-cell cancer. 3. Chronic tobacco dependence. 4. Dysphagia. 5. Hypertension. 6. 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 PLAN: The patient will tentatively be discharged today either later today or tomorrow. Additional recommendations and suggestions are forthcoming. Prognosis is guarded. Again, we did have a very late OR time today. The patient really would like to be discharged home. Additional recommendations and suggestions are forthcoming. MMODL / IJN: [id number] /
[2019-12-02 15:26] VITALS: BP 161/93; RESP 17; TEMP 97.7
[2019-12-02] MEDS: amLODIPine 5 MG TAB PO SCH (15:52)
[2019-12-02] MEDS: CHOLECALCIFEROL 1,000 UNIT TAB PO SCH (15:52)
[2019-12-02] MEDS: SODIUM CHLORIDE TAB 1 GM TAB PO SCH (15:52)
[2019-12-02] MEDS: VITAMIN A 10,000 UNIT CAPSULE PO SCH (15:52)
[2019-12-02] MEDS ORDERED: LORazepam 1 MG TAB PO STA (16:00)
[2019-12-02] MEDS ORDERED: LORazepam 2 MG/ML INJ IV STA (16:01)
--- NOTE | 2019-12-02 16:26 | P.DS ---
Providers Date of admission: 11/26/19 19:48 Expected date of discharge: 12/02/19 Attending physician: Rajat Lee MD Consults: 11/27/19 02:51 Consult Physician Urgent Consulting Provider: Nikos Sahu Consult Reason/Comments: Hyponatremia, suspected SiADH Do you want consulting provider notified?: Yes 11/28/19 14:30 Consult Physician Stat Consulting Provider: Jesus Michelle Consult Reason/Comments: Dysphagia with recent diagnois lung ca Do you want consulting provider notified?: Yes 11/29/19 21:39 Consult Physician Routine Consulting Provider: Orquidea Sutton Consult Reason/Comments: Paratrachial soft tissue density - Tissue biopsy?Broch Do you want consulting provider notified?: Yes, Notify in am Primary care physician: Carlos Saeed [facility] Course: The patient is a 61-year-old male with a PMH of hypertension, and recently diagnosed lung mass presented to the ED with complaints of worsening lethargy, weight loss, and decreased urine output. The patient notes that he was initially diagnosed with his lung mass in August 2019 during hospitalization at another facility) for which the patient has not been able to undergo the workup due to Covid and is scheduled to undergo biopsy of the mass on December 03. The patient notes however that his symptoms have been gradually worsening over the past few months, and he has noticed a 15-20 pound weight loss over the past 1- 1/2 months. He also notes that his excess tolerance is significantly diminished and now he gets winded with even walking a few steps. He also notes that he has not been producing enough urine, even though he feels he is drinking adequate amounts of fluid. He otherwise denied chest pain, shortness of breath, fever, chills, nausea, vomiting, headaches, dizziness, cough, recent travel, or sick contacts. He underwent an extensive evaluation in the emergency room with chest x-ray showing likely COPD with left hilar bulkiness as seen previously with laboratory evaluation showing sodium 120, down from 122 previously, potassium 3.8, chloride 83, BUN 8, creatinine 0.61, BNP 181, with UA unremarkable. His serum osmolality was low suggesting SIADH. He was initially started on fluid restriction which did not improve his sodium too much. Nephrology was consulted and recommended salt tablets. He did get 1 dose of tolvaptan. His sodium improved from 120 on admission to 133 at the time of discharge. He did have some dysphagia for which barium swallow was ordered which showed presbyesophagus. EGD was done by GI which showed no strictures, thickening of the esophageal folds suspicious for esophagitis status post biopsy and antral erosive gastritis. Pulmonology was consulted regarding this lung mass and he underwent bronchoscopy and biopsy on 12/02/2019. Oncology was consulted and recommended MRI brain. Patient was seen and examined after his bronchoscopy. Patient complains a sore throat. He denies any chest pain, shortness of breath or palpitations. No nausea or vomiting. No fever or chills. Requesting Ativan for claustrophobia during MRI. General: [non toxic], [no distress], [appears at stated age] Derm: [warm], [dry] Head: [atraumatic], [normocephalic], [symmetric] Eyes: [EOMI], [no lid lag], [anicteric sclera] Mouth: [no lip lesion], [mucus membranes moist] Cardiovascular: [S1S2 reg], [no murmur], [positive posterior tibial pulse b ilateral], Lungs: [CTA bilateral], [no rhonchi, no rales] , [no accessory muscle use] Abdominal: [soft], [ nontender to palpation], [no guarding], [no appreciable organomegaly] Ext: [no gross muscle atrophy], [no edema], [no contractures] Neuro: [no focal neuro deficits] Psych: [Alert], [oriented], [appropriate affect] Hyponatremia, 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 -Serum osmolality low suggesting SIADH -Sodium improved from [id number] -Continue fluid restriction -Salt tablets added by nephrology, s/p 1 dose of Tolvaptan yesterday -Nephrology is following the patient Dysphagia -Barium swallow showing presbyesophagus -EGD showing no strictures, thickening of esophageal fold suspicious for esophagitis status post biopsy and antral erosive gastritis Lung mass -Patient would like to follow with Oncology here rather than [facility] -Bronchoscopy and biopsy of lung mass obtained by pulmonology today -MRI brain ordered for today. Patient can follow-up results of the biopsy and MRI brain with oncology in the outpatient setting. -Oncology consult, can be done outpatient after the biopsy Weight loss, lethargy, decreased exercise tolerance -Likely secondary to known lung mass Hypertension -Continue with home meds DVT prophylaxis -Lovenox [Patient's sodium considerably improved today. Underwent bronchoscopy and biopsy of lung mass today. Plans for MRI brain. Likely DC after MRI. He will need follow-up with oncology in the outpatient setting. Complex discharge took about 35 minutes to complete.] Pertinent Studies: Chest x-ray, barium swallow, baltazar CT, MRI brain Procedures: Bronchoscopy and lung biopsy Patient Condition at Discharge: Stable Plan - Discharge Summary Discharge Rx Participant: Yes New Discharge Prescriptions: New Pantoprazole [Protonix] 40 mg PO AC-BID #60 tablet. Sodium Chloride Tab 1 gm PO BID #60 tab Continue traMADol HCL 50 mg PO DAILY@1200 amLODIPine [Norvasc] 5 mg PO DAILY Cholecalciferol [Vitamin D3 (25 Mcg = 1000 Iu)] 1,000 unit PO DAILY Vitamin A 8,000 unit PO DAILY Aspirin EC [Ecotrin Low Dose] 81 mg PO DAILY Albuterol Inhaler [Ventolin Hfa Inhaler] 1 - 2 puff INHALATION RT-Q6H PRN PRN Reason: Shortness Of Breath Discontinued Omeprazole Magnesium [PriLOSEC OTC] 20 mg PO DAILY Discharge Medication List amLODIPine [Norvasc] 5 mg PO DAILY 08/30/19 [History] traMADol HCL 50 mg PO DAILY@1200 08/30/19 [History] Albuterol Inhaler [Ventolin Hfa Inhaler] 1 - 2 puff INHALATION RT-Q6H PRN 11/26/19 [History] Aspirin EC [Ecotrin Low Dose] 81 mg PO DAILY 11/26/19 [History] Cholecalciferol [Vitamin D3 (25 Mcg = 1000 Iu)] 1,000 unit PO DAILY 11/26/19 [History] Vitamin A 8,000 unit PO DAILY 11/26/19 [History] Pantoprazole [Protonix] 40 mg PO AC-BID #60 tablet. 12/02/19 [Rx] Sodium Chloride Tab 1 gm PO BID #60 tab 12/02/19 [Rx] Follow up Appointment(s)/Referral(s): Amber Lindsey MD [STAFF PHYSICIAN] - 2 Weeks Carlos Saeed MD [Primary Care Provider] - 1-2 days Jesus Michelle MD [STAFF PHYSICIAN] - 1 Week Activity/Diet/Wound Care/Special Instructions: Diet: Fluid restriction to 1200 mL daily Follow-up PCP within 3 days of discharge. Follow-up with GI within 1 week of discharge. Follow-up with oncology within 1 week of discharge. You will need follow-up the results of your lung biopsy and MRI brain with oncology. Take all medications as advised. Come back to the ED or call 911 for worsening chest pain, shortness of breath, palpitations, dizziness. Discharge Disposition: HOME SELF-CARE
[2019-12-02 16:37] VITALS: PULSE 100
--- NOTE | 2019-12-02 16:51 | MR ---
EXAMINATION TYPE: MR brain wo/w con DATE OF EXAM: 12/02/2019 COMPARISON: NONE HISTORY: Mental status changes, eval for metastatic disease TECHNIQUE: Multiplanar, multisequence images of the brain and brainstem is performed without and with IV contras t, utilizing 7 mL intravenous Gadavist . FINDINGS: Diffusion weighted images demonstrate no evidence of a recent infarct or other diffusion ab normality. There is no worrisome extra-axial fluid collection. Mild ventricular and sulcal prominenc e. Confluent area of of T2 hyperintensity seen throughout the deep and periventricular white matter. Midline structures demonstrate normal morphology. The craniocervical junction appears within normal limits. Post contrast images demonstrate no abnormal enhancement. The dural venous sinuses appear pa tent. The visualized sinuses are clear and the globes are intact. IMPRESSION: No MRI evidence for recent infarct. Moderate nonspecific white matter changes presumed on the basis of chronic small vessel ischemic change in patient of this age. No suspicious enhancing in traparenchymal masses noted.
--- NOTE | 2019-12-02 18:27 | PN ---
PROGRESS NOTE The patient is seen for followup for hyponatremia. His serum sodium has improved to 132 and 133 mEq/L. Etiology of hyponatremia is SIADH. The patient is currently maintained on sodium chloride tabs. He also received a dose of tolvaptan on 11/30/2019. No significant complaints today. PHYSICAL EXAMINATION: On examination, blood pressure was 138/85, heart rate 91 per minute, patient is afebrile. Examination of the heart S1, S2. Examination of the lungs, bilateral breath sounds are heard. Abdomen is soft, nontender. Examination of lower extremities shows no evidence of edema. BLUEBERRY GROWER exam grossly intact. LABS: Show sodium of 132 today. ASSESSMENT: 1. Is hyponatremia secondary to Syndrome of inappropriate antidiuretic hormone, currently maintained on fluid restriction and sodium chloride tabs. Patient did get a dose of tolvaptan 2 days ago. His serum sodium is staying above 130. Patient is advised to continue with his fluid restriction for now. He will need close monitoring of his sodium levels. He may continue with the sodium chloride tabs for another week or so. 2. Lung cancer versus lymphoma, being followed by Oncology. PLAN: Continue with fluid restriction and sodium chloride tabs. The patient will need close monitoring of electrolytes as outpatient. He can discontinue sodium chloride tabs in about one week's time. If the sodium level drops again as outpatient, patient will need to take Samsca at least 1-2 times a week. MMODL / IJN: [id number] /
--- NOTE | 2019-12-03 00:50 | PCN ---
PROCEDURE NOTE PROCEDURE: Bronchoscopy, airway examination, brushes, endobronchial biopsies and transbronchial needle aspiration of the left mainstem subcarinal areas. PREOPERATIVE DIAGNOSIS: Rule out lung cancer. POSTOPERATIVE DIAGNOSIS: Rule out lung cancer. The patient's procedure was done in room #1. Dr. Marie and Nadine Randhawa CRNA provided general anesthesia. The patient was intubated and mechanically ventilated. OPERATORS: Dr. Jackson and Yamilet Smtih. DESCRIPTION OF PROCEDURE: There was informed consent and universal timeout. After the patient was adequately anesthetized, the bronchoscope was inserted through the bronchoscope adapter connected to the endotracheal tube. The right side was evaluated first. The right upper lobe and its 3 segments, right middle lobe and its 2 segments, right lower lobe and its 5 segments were normal. There was significant disease noted on the left side. Just distal to the tracheal paula was an area of abnormality on the anterior medial wall of the left mainstem. There was disease throughout the left mainstem and even lower within the left lung. This is where we sampled. Initially we did brushes in this area. We did this under direct visualization. Next, we did 2 transbronchial needle aspirations, one in the medial wall of the left mainstem and then one also in the subcarinal region. Subsequent to that, we did multiple endobronchial biopsies within the left mainstem. Finally, we washed the left mainstem and the left lung entirely. All the samples will be sent to the laboratory for analysis. There was some minimal bleeding. The patient was stable throughout the procedure. No x-rays really needed at this time. The patient will be recovered. He could be discharged home later today. Additional recommendations and suggestions are forthcoming. MMODL / IJN: [id number] /
--- NOTE | 2019-12-04 08:59 | CDI ---
Documentation Clarification Form Date: 12/04/19 From: Shania Mcintosh CCS Phone: If you have a question about this query, please contact Karla Singh, [employer] at [phone] between 8am and 5pm. Admit Date: 11/26/19 Discharge Date:12/02/19 Patient Name: Regan Gunn Visit Number: [id number] ATTENTION: The Clinical Documentation Specialists (CDI) and [facility] Coding Staff appreciate your assistance in clarifying documentation. Please respond to the clarification below the line at the bottom and electronically sign. The CDI & [facility] Coding staff will review the response and follow-up if needed. Please note: Queries are made part of the Legal Health Record. If you have any questions, please contact the author of this message via ITS. Dear Dr. Rivera, Altered Mental Status was documented in the Consult, PNs. PN 11/29 documents: She said initially his demeanor and confusion improved but recently its worsening again, therefore will need to further evaluate brain Consult 11/28 documents: ROS unobtainable: due to mental status PN 11/30 documents: Altered mental status secondary to hyponatremia, recovered History/Risk Factors: Lung CA, SIADH, HTN, Hypovolemia, COPD w/ Exacerbation Clinical Indicators: AMS, Confusion, Mental status change Labs: Sodium 120 MRI: No MRI evidence for recent infarct.Moderate nonspecific white matter changes presumed on the basis of chronic small vessel ischemic change in patient of this age.No suspicious enhancing intraparenchymal masses noted. Treatment: MRI diagnostic- Monitor In your professional opinion, please clarify the Altered Mental Status, if known. Delirium (specify cause): Metabolic Encephalopathy Other Encephalopathy Altered Mental Status Other condition (please specify) Unable to determine I did not document any altered mental status. MTDD
--- NOTE | 2019-12-04 09:09 | CDI ---
Documentation Clarification Form Date: 12/04/19 From: Shania Mcintosh CCS Phone: If you have a question about this query, please contact Karla Singh, Correctional Lieutenant at [phone] between 8am and 5pm. Admit Date: 11/26/19 Discharge Date:12/02/19 Patient Name: Regan Gunn Visit Number: [id number] ATTENTION: The Clinical Documentation Specialists (CDI) and [facility] Coding Staff appreciate your assistance in clarifying documentation. Please respond to the clarification below the line at the bottom and electronically sign. The CDI & [facility] Coding staff will review the response and follow-up if needed. Please note: Queries are made part of the Legal Health Record. If you have any questions, please contact the author of this message via ITS. Dear Dr. Rivera, Patient has been described as weight loss, underweight History/Risk Factors: Lung CA, HTN, SIADH, Hypovolemia, Dysphagia, Gastritis Clinical Indicators: Weight loss, Dysphagia Patients weight is:66.224 kg Patients height is: 6 ft 2 in Calculated BMI is:18.7 Albumin: 3.9 Total Protein: 6.8 Treatments: Ensure Compact TID for additional Kcal, protein Dietary Consult: 11/26, 11/28 In order to capture the severity of condition associated with patient BMI of 18.7, a clinical diagnosis needs to be documented by the physician. Please clarify: Cachexia Underweight Malnutrition Mild Moderate Severe Other Unable to determine mild malnutrition MTDD
== END 2019-12-02 18:16 | disposition home or self-care (01) | DRG 181 ==
LOC: EC 15:50 → 5NMEDONC 19:48
PROVIDERS: ADMIT Internal Medicine; ATTEND Internal Medicine
PROC: 0DB28ZX Excision of Middle Esophagus, Via Natural or Artificial Opening Endoscopic, Diagnostic (ICD-10-PCS; principal; 2019-11-30 07:15)
PROC: 0DB78ZX Excision of Stomach, Pylorus, Via Natural or Artificial Opening Endoscopic, Diagnostic (ICD-10-PCS; principal; 2019-11-30 07:15)
PROC: 0DB38ZX Excision of Lower Esophagus, Via Natural or Artificial Opening Endoscopic, Diagnostic (ICD-10-PCS; principal; 2019-11-30 07:15)
PROC: 0B9L8ZX Drainage of Left Lung, Via Natural or Artificial Opening Endoscopic, Diagnostic (ICD-10-PCS; 2019-12-02 07:30)
PROC: 0BD78ZX Extraction of Left Main Bronchus, Via Natural or Artificial Opening Endoscopic, Diagnostic (ICD-10-PCS; 2019-12-02 07:30)
PROC: 0BDJ8ZX Extraction of Left Lower Lung Lobe, Via Natural or Artificial Opening Endoscopic, Diagnostic (ICD-10-PCS; 2019-12-02 07:30)
PROC: 0B978ZX Drainage of Left Main Bronchus, Via Natural or Artificial Opening Endoscopic, Diagnostic (ICD-10-PCS; 2019-12-02 07:30)
PROC: 0BB78ZX Excision of Left Main Bronchus, Via Natural or Artificial Opening Endoscopic, Diagnostic (ICD-10-PCS; 2019-12-02 07:30)
DX: C34.02 Malignant neoplasm of left main bronchus (principal); E22.2 Syndrome of inappropriate secretion of antidiuretic hormone; E44.1 Mild protein-calorie malnutrition; C77.1 Secondary and unspecified malignant neoplasm of intrathoracic lymph nodes; C78.1 Secondary malignant neoplasm of mediastinum; J44.1 Chronic obstructive pulmonary disease with (acute) exacerbation; Z68.1 Body mass index [BMI] 19.9 or less, adult; Z11.59 Encounter for screening for other viral diseases; R63.4 Abnormal weight loss; E86.1 Hypovolemia; I10 Essential (primary) hypertension; F17.210 Nicotine dependence, cigarettes, uncomplicated; K22.4 Dyskinesia of esophagus; K22.8 Other specified diseases of esophagus; K21.0 Gastro-esophageal reflux disease with esophagitis; K29.60 Other gastritis without bleeding; F40.240 Claustrophobia; Z79.899 Other long term (current) drug therapy; Z79.82 Long term (current) use of aspirin; Z85.038 Personal history of other malignant neoplasm of large intestine; Z90.49 Acquired absence of other specified parts of digestive tract; Z90.5 Acquired absence of kidney; Z98.890 Other specified postprocedural states; Z86.79 Personal history of other diseases of the circulatory system; Z85.528 Personal history of other malignant neoplasm of kidney; Z88.5 Allergy status to narcotic agent; Z80.0 Family history of malignant neoplasm of digestive organs
CPT/HCPCS: 31623; 31624; 31625; 31629; 36415; 43235; 70553; 71046; 71260; 74177; 74220; 80048; 80053; 81003; 82550; 82570; 83615; 83735; 83880; 83930; 83935; 84100; 84295; 84300; 84443; 84550; 85025; 85379; 88104; 88108; 88173; 88305; 88312; 88341; 88342; 93005; 94640; 94760; 96360; 96361; 96372; 99285

== ENCOUNTER 2020-10-14 16:37 | Emergency (ER) | payer OTHER ==
[2020-10-14] MEDS ORDERED: SODIUM CHLORIDE 0.9% 500 ML 500 ML IV ONE (16:56)
--- NOTE | 2020-10-14 17:11 | ED ---
General Adult HPI - General Chief complaint: Altered Mental Status Stated complaint: Confusion Time Seen by Provider: 10/14/20 16:45 Source: patient, RN notes reviewed, old records reviewed Mode of arrival: ambulatory Limitations: no limitations - History of Present Illness Initial comments: 65-year-old male presenting for evaluation of worsening slurred speech and word finding difficulty. Patient has previous history of brain aneurysm which was operated on at outside facility approximately one year ago. He has not had good follow-up secondary to the coronavirus pandemic. He denies headache. His states that his symptoms have been progressive over many months but seemed to worsen over the past 3 days. Patient himself denies any complaints. No headache. No chest pain or abdominal pain. No fever. No recent illness. He states he has been eating and drinking well. No vomiting or diarrhea. Additionally the patient had previous history of lung cancer which was treated at outside facility, patient underwent chemotherapy and radiation and was told he is in remission. Not currently receiving cancer treatment. - Related Data Home Medications Medication Instructions Recorded Confirmed amLODIPine [Norvasc] 5 mg PO DAILY 08/30/19 10/14/20 traMADol HCL 50 mg PO DAILY 08/30/19 10/14/20 Cholecalciferol [Vitamin D3 (25 1,000 unit PO DAILY 11/26/19 10/14/20 Mcg = 1000 Iu)] Omeprazole 20 mg PO DAILY 10/14/20 10/14/20 Allergies Allergy/AdvReac Type Severity Reaction Status Date / Time codeine AdvReac hyper Verified 10/14/20 17:29 Review of Systems ROS Statement: Those systems with pertinent positive or pertinent negative responses have been documented in the HPI. ROS Other: All systems not noted in ROS Statement are negative. Past Medical History Past Medical History: Unable to Obtain, Cancer Additional Past Medical History / Comment(s): lung mass, numerous brain aneurysms, hyponatremia, low urine output, History of Any Multi-Drug Resistant Organisms: None Reported Past Surgical History: Appendectomy, Orthopedic Surgery Additional Past Surgical History / Comment(s): Pt had kidney removed, brain aneurysm fixed, R nephrectomy Past Anesthesia/Blood Transfusion Reactions: No Reported Reaction Past Psychological History: No Psychological Hx Reported Smoking Status: Former smoker Past Alcohol Use History: Daily Past Drug Use History: None Reported - Past Family History Mother Additional Family Medical History / Comment(s): colon cancer Father Family Medical History: No Reported History Additional Family Medical History / Comment(s): of old age General Exam Limitations: no limitations General appearance: alert, in no apparent distress Head exam: Present: atraumatic, normocephalic Eye exam: Present: normal appearance, PERRL ENT exam: Present: normal exam Neck exam: Present: normal inspection. Absent: tenderness, meningismus Respiratory exam: Present: normal lung sounds bilaterally. Absent: respiratory distress, wheezes Cardiovascular Exam: Present: regular rate, normal rhythm GI/Abdominal exam: Present: soft. Absent: distended, tenderness, guarding Extremities exam: Present: normal inspection, normal capillary refill. Absent: calf tenderness Neurological exam: Present: alert, oriented X3, motor sensory deficit (Mild dysarthria and expressive aphasia) Psychiatric exam: Present: normal affect, normal mood Skin exam: Present: warm, dry, intact. Absent: cyanosis, diaphoretic Course Vital Signs 10/14/20 10/14/20 10/14/20 16:40 18:26 19:11 Temperature 98 F 98.3 F Pulse Rate 98 82 83 Respiratory 18 16 18 Rate Blood Pressure 144/84 154/97 158/130 O2 Sat by Pulse 98 100 97 Oximetry - Reevaluation(s) Reevaluation #1: 10/14/20 19:14 No exam remains unchanged, he has a mild dysarthria and expressive aphasia. EKG Findings - EKG Comments: EKG Findings:: EKG: Normal sinus rhythm, no ST segment elevation rate of 92 DC interval 140, QRS duration 76, QTC 410 Medical Decision Making - Medical Decision Making 65 yo male who had presented with worsening word finding issues and previous history of both lung CVA and brain aneurysm. CT of the brain with and without contrast as well as CT crow of [place] angiogram has been obtained in the emergency department demonstrated multiple lesions suggestive of metastases with surrounding edema. There is no midline shift. Patient is given Decadron in the emergency department. He will require neurosurgical evaluation and family has requested [facility] which is where his previous cancer treatment had been completed. I discussed case with the emergency physician Dr. Kirk, at [facility] in [place] who will accept transfer. Patient and are agreeable with transfer. - Lab Data Result diagrams: 10/14/20 Unknown 10/14/20 Unknown Lab Results 10/14/20 10/14/20 10/14/20 Range/Units 17:09 Unknown Unknown WBC 5.9 (3.8-10.6) k/uL RBC 4.98 (4.30-5.90) m/uL Hgb 15.0 (13.0-17.5) gm/dL Hct 43.3 (39.0-53.0) % MCV 86.9 (80.0-100.0) fL MCH 30.0 (25.0-35.0) pg MCHC 34.6 (31.0-37.0) g/dL RDW 13.9 (11.5-15.5) % Plt Count 258 (150-450) k/uL MPV 6.4 Neutrophils % 73 % Lymphocytes % 15 % Monocytes % 8 % Eosinophils % 1 % Basophils % 1 % Neutrophils # 4.3 (1.3-7.7) k/uL Lymphocytes # 0.9 L (1.0-4.8) k/uL Monocytes # 0.5 (0-1.0) k/uL Eosinophils # 0.1 (0-0.7) k/uL Basophils # 0.1 (0-0.2) k/uL PT 9.7 (9.0-12.0) sec INR 0.9 (<1.2) APTT 21.5 L (22.0-30.0) sec Sodium (137-145) mmol/L Potassium (3.5-5.1) mmol/L Chloride (98-107) mmol/L Carbon Dioxide (22-30) mmol/L Anion Gap mmol/L BUN (9-20) mg/dL Creatinine (0.66-1.25) mg/dL Est GFR (CKD-EPI)AfAm (>60 ml/min/1.73 sqM) Est GFR (CKD-EPI)NonAf (>60 ml/min/1.73 sqM) Glucose (74-99) mg/dL Calcium (8.4-10.2) mg/dL Total Bilirubin (0.2-1.3) mg/dL AST (17-59) U/L ALT (4-49) U/L Alkaline Phosphatase (38-126) U/L Total Protein (6.3-8.2) g/dL Albumin (3.5-5.0) g/dL Urine Color Yellow Urine Appearance Clear (Clear) Urine pH 5.0 (5.0-8.0) Ur Specific [place] 1.017 (1.001-1.035) Urine Protein Negative (Negative) Urine Glucose (UA) Negative (Negative) Urine Ketones 1+ H (Negative) Urine Blood Negative (Negative) Urine Nitrite Negative (Negative) Urine Bilirubin Negative (Negative) Urine Urobilinogen <2.0 (<2.0) mg/dL Ur Leukocyte Esterase Negative (Negative) 10/14/20 Range/Units Unknown WBC (3.8-10.6) k/uL RBC (4.30-5.90) m/uL Hgb (13.0-17.5) gm/dL Hct (39.0-53.0) % MCV (80.0-100.0) fL MCH (25.0-35.0) pg MCHC (31.0-37.0) g/dL RDW (11.5-15.5) % Plt Count (150-450) k/uL MPV Neutrophils % % Lymphocytes % % Monocytes % % Eosinophils % % Basophils % % Neutrophils # (1.3-7.7) k/uL Lymphocytes # (1.0-4.8) k/uL Monocytes # (0-1.0) k/uL Eosinophils # (0-0.7) k/uL Basophils # (0-0.2) k/uL PT (9.0-12.0) sec INR (<1.2) APTT (22.0-30.0) sec Sodium 131 L (137-145) mmol/L Potassium 4.6 (3.5-5.1) mmol/L Chloride 98 (98-107) mmol/L Carbon Dioxide 25 (22-30) mmol/L Anion Gap 8 mmol/L BUN 20 (9-20) mg/dL Creatinine 0.69 (0.66-1.25) mg/dL Est GFR (CKD-EPI)AfAm >90 (>60 ml/min/1.73 sqM) Est GFR (CKD-EPI)NonAf >90 (>60 ml/min/1.73 sqM) Glucose 92 (74-99) mg/dL Calcium 9.6 (8.4-10.2) mg/dL Total Bilirubin 0.6 (0.2-1.3) mg/dL AST 28 (17-59) U/L ALT 17 (4-49) U/L Alkaline Phosphatase 72 (38-126) U/L Total Protein 7.3 (6.3-8.2) g/dL Albumin 4.4 (3.5-5.0) g/dL Urine Color Urine Appearance (Clear) Urine pH (5.0-8.0) Ur Specific [place] (1.001-1.035) Urine Protein (Negative) Urine Glucose (UA) (Negative) Urine Ketones (Negative) Urine Blood (Negative) Urine Nitrite (Negative) Urine Bilirubin (Negative) Urine Urobilinogen (<2.0) mg/dL Ur Leukocyte Esterase (Negative) Disposition Clinical Impression: History of lung cancer, Lesion of brain Disposition: OTHER INSTITUTION NOT DEFINED Condition: Stable Is patient prescribed a controlled substance at d/c from ED?: No Referrals: None,Stated [REFERRING] - 1-2 days Time of Disposition: 19:15 - Out of Hospital Transfer - Req. Specs Out of Hospital Transfer - Requested Specifics: Other Emergency Center ([facility])
[2020-10-14 17:12] LABS: Appearance,Urine Clear (Clear); Bilirubin,Urine Negative (Negative); Blood,Urine Negative (Negative); Color,Urine Yellow; Glucose,Urine (UA) Negative (Negative); Ketones,Urine 1+ (Negative); Leukocyte Esterase,Urine Negative (Negative); Nitrite,Urine Negative (Negative); Protein,Urine Negative (Negative); Specific Gravity,Urine 1.017 (1.001-1.035); Urobilinogen,Urine <2.0 mg/dL (<2.0)
[2020-10-14 17:13] LABS: Basophils # (A) 0.1 k/uL (0-0.2); Basophils % (A) 1 %; Eosinophils # (A) 0.1 k/uL (0-0.7); Eosinophils % (A) 1 %; HCT 43.3 % (39.0-53.0); Lymphocytes # (A) 0.9 k/uL (1.0-4.8); Lymphocytes % (A) 15 %; MCHC 34.6 g/dL (31.0-37.0); MCV 86.9 fL (80.0-100.0); Mean Platelet Volume 6.4; Monocytes # (A) 0.5 k/uL (0-1.0); Monocytes % (A) 8 %; Neutrophils # (A) 4.3 k/uL (1.3-7.7); Neutrophils % (A) 73 %; Platelet Count 258 k/uL (150-450); RBC 4.98 m/uL (4.30-5.90); RDW 13.9 % (11.5-15.5); WBC 5.9 k/uL (3.8-10.6)
[2020-10-14 17:23] LABS: ALT 17 U/L (4-49); AST 28 U/L (17-59); African American GFR (CKD) >90 (>60 ml/min/1.73 sqM); Albumin 4.4 g/dL (3.5-5.0); Alkaline Phosphatase 72 U/L (38-126); Anion Gap 8 mmol/L; Blood Urea Nitrogen 20 mg/dL (9-20); Calcium 9.6 mg/dL (8.4-10.2); Carbon Dioxide 25 mmol/L (22-30); Chloride 98 mmol/L (98-107); Glucose 92 mg/dL (74-99); INR 0.9 (<1.2); Non-African American GFR(CKD) >90 (>60 ml/min/1.73 sqM); Partial Thromboplastin Time 21.5 sec (22.0-30.0); Potassium 4.6 mmol/L (3.5-5.1); Prothrombin Time 9.7 sec (9.0-12.0); Sodium 131 mmol/L (137-145); Total Bilirubin 0.6 mg/dL (0.2-1.3); Total Protein 7.3 g/dL (6.3-8.2)
[2020-10-14] MEDS ORDERED: RX INFO: IV CONTRAST WAS GIVEN 1 EACH MISC MISCELLANE PRN (18:04)
[2020-10-14 18:27] VITALS: TEMP 98.3
--- NOTE | 2020-10-14 18:53 | CT ---
EXAMINATION TYPE: CT brain wo/w con DATE OF EXAM: 10/14/2020 COMPARISON: 09/05/2019 HISTORY: Altered mental status. History of aneurysm. CT DLP: 2274.4 mGycm Automated exposure control for dose reduction was used. CONTRAST: Performed without and with IV Contrast, patient injected with mL of Isovue 370. Images were obtained without and with IV contrast. There are numerous ring-enhancing masses throughout the brain. Some of these have a large cystic comp onents. There is 3.5 cm lesion in the left posterior frontal lobe with some surrounding edema. There is 1.8 cm more uniformly enhancing mass in the left posterior frontal lobe convexity. There is 3 cm l esion in the left posterior temporal lobe with 1.5 cm solid component. There is 1 cm ring-enhancing f ocus left posterior frontal lobe convexity. There is 1.5 cm area of enhancement left lateral posterio r frontal lobe. There is 1 cm focus of enhancement right posterior frontal lobe. There are multiple e nhancing foci in the medial and anterior right temporal lobe up to 2 cm. There is 1 cm enhancing focu s inferior left frontal lobe. There is 1 cm enhancing focus medial left occipital lobe. There is 2 cm enhancing focus adjacent to the cerebral falx in the left parietal lobe. There is metallic density right anterior sylvian fissure consistent with aneurysm clip. The calvarium is intact. The skull base is intact. There is normal aeration of the mastoid sinuses. IMPRESSION: Numerous enhancing masses in both cerebral hemispheres with ring enhancement. These appear new compar ed to old exam of 09/05/2019. I would consider possibilities of metastatic disease and less likely mul tiple brain abscesses.
[2020-10-14] MEDS ORDERED: DEXAMETHASONE SOD PHOSPHATE 10 MG/ML 1 ML VIAL IV STA (18:57)
[2020-10-14 19:12] VITALS: RESP 18
--- NOTE | 2020-10-14 19:15 | CT ---
EXAMINATION TYPE: CT angio COW [place] DATE OF EXAM: 10/14/2020 COMPARISON: 08/30/2019 HISTORY: Altered mental status. History of aneurysm. CT DLP: 663.2 mGycm Automated exposure control for dose reduction was used. CONTRAST: Performed with IV Contrast, patient injected with 65 mL of Isovue 370. Images were obtained from the skull base to the vertex of the brain with IV contrast. There are 3-D p ost processed images. There is arterial flow in the anterior middle and posterior cerebral arteries bilaterally. There is m etal density at the right middle cerebral artery consistent with aneurysm clip. There is arterial beckie w in the vertebrobasilar artery system. I see no significant mass effect. There is no evidence of ane urysm. I see no evidence of hemodynamic stenosis. There is normal enhancement of the venous sinuses. There are numerous enhancing masses throughout the brain which are described in the CT brain report w hich also show variable ring enhancement. IMPRESSION: Previous aneurysm surgery. No evidence of intracranial arterial stenosis. No evidence of aneurysm. Numerous brain masses suggestive of metastatic disease or less likely abscesses.
[2020-10-14 20:02] VITALS: BP 152/99; PULSE 79
== END 2020-10-14 20:00 | disposition other institution (70) ==
LOC: EC 16:37
DX: G93.9 Disorder of brain, unspecified (principal); Z90.49 Acquired absence of other specified parts of digestive tract; Z87.891 Personal history of nicotine dependence; Z85.118 Personal history of other malignant neoplasm of bronchus and lung; Z86.79 Personal history of other diseases of the circulatory system
CPT/HCPCS: 36415; 93005; 80053; 85025; 85610; 85730; 81003; 70496; 70470; 99285; 96374; 96361; J1100; Q9967

== ENCOUNTER 2020-11-02 12:05 | Observation (INO) | payer MEDICAID, OTHER ==
--- NOTE | 2020-11-02 13:03 | ED ---
General Adult HPI - General Chief complaint: Altered Mental Status Stated complaint: AMS Time Seen by Provider: 11/02/20 12:23 Source: patient, EMS Mode of arrival: EMS Limitations: altered mental status - History of Present Illness Initial comments: Dictation was produced using [employer] dictation software. please excuse any grammatical, word or spelling errors. This patient was cared for during a federal and state declared state of emergency secondary to Covid 19 Chief Complaint: 65-year-old male with past medical history of metastatic cancer with multiple metastatic disease to the brain presents to the emergency department for homicidal behavior History of Present Illness: 65-year-old male he is brought in by family. Patient has history of brain metastatic lesions. He is undergone several rounds of radiation treatment. The last several days she's been coming more and more combative and expressing life-threatening remarks towards and family. Son and are here to help provide history of present illness. Today he was threatening to kill and children. Patient denies any medical problems. Patient according to has a terminal illness. Radiation was performed recently in order to prolong patient's life for couple weeks. Unable to obtain HPI from patient due to his neurologic status. Does not have any complaints and wants to go home. The ROS documented in this emergency department record has been reviewed and confirmed by me. Those systems with pertinent positive or negative responses have been documented in the HPI. All other systems are other negative and/or noncontributory. PHYSICAL EXAM: General Impression: Alert and oriented x3/4, not in acute distress HEENT: Normocephalic atraumatic, extra-ocular movements intact, pupils equal and reactive to light bilaterally, mucous membranes moist. Cardiovascular: Heart regular rate and rhythm Chest: Able to complete full sentences, no retractions, no tachypnea Abdomen: abdomen soft, non-tender, non-distended, no organomegaly Musculoskeletal: Pulses present and equal in all extremities, no peripheral edema Motor: no focal deficits noted Neurological: CN II-XII grossly intact, no focal motor or sensory deficits noted Skin: Intact with no visualized rashes Psych: Normal affect and mood ED course: 65-year-old male with recent history of metastatic brain cancer presents to the emergency department for homicidal behavior. Vital signs upon arrival are within acceptable limits. reports that her goals of care for her is to get a hospice consult. They do not want any aggressive measures. reiterates that patient has a terminal illness and was given a projection of patient living for a couple more weeks according to oncologist. feels that patient's behavior is secondary to his cancer for radiation t reatment. and family feel threatened by patient's behavior recently. Laboratory evaluation obtained. CBC, metabolic panel is within acceptable limits. Patient reevaluated bedside 150. Upon be in stable medical condition./Vital signs of distress. He is however behaving aggressively towards myself and staff and son who is at the bedside. Patient be admitted. Case discussed with Dr. Monserrat almonte except patient's care. Consult was made to hospice. Anthony also consulted along with oncology. EKG interpretation: Ventricular rate 80, normal sinus rhythm, NJ interval 134, QRS 66, QTC 372. No NJ prolongation, no QTC prolongation, no ST or T-wave changes noted. Overall, this EKG is unremarkable - Related Data Home Medications Medication Instructions Recorded Confirmed Omeprazole 20 mg PO DAILY 10/14/20 11/02/20 Dexamethasone [Decadron] 4 mg PO Q6H 11/02/20 11/02/20 Fluconazole [Diflucan] 100 mg PO DAILY 11/02/20 11/02/20 LORazepam [Ativan] 0.5 mg PO QID PRN 11/02/20 11/02/20 levETIRAcetam [Keppra] 500 mg PO Q12HR 11/02/20 11/02/20 Allergies Allergy/AdvReac Type Severity Reaction Status Date / Time codeine AdvReac hyper Verified 11/02/20 13:40 Review of Systems ROS Statement: Those systems with pertinent positive or pertinent negative responses have been documented in the HPI. ROS Other: All systems not noted in ROS Statement are negative. Past Medical History Past Medical History: Unable to Obtain, Cancer Additional Past Medical History / Comment(s): lung mass, numerous brain aneurysms, hyponatremia, low urine output, lung CA with mets to brain and kidneys History of Any Multi-Drug Resistant Organisms: None Reported Past Surgical History: Appendectomy, Orthopedic Surgery Additional Past Surgical History / Comment(s): Pt had kidney removed, brain aneurysm fixed, R nephrectomy Past Anesthesia/Blood Transfusion Reactions: No Reported Reaction Past Psychological History: No Psychological Hx Reported Smoking Status: Former smoker Past Alcohol Use History: Daily Past Drug Use History: None Reported - Past Family History Mother Additional Family Medical History / Comment(s): colon cancer Father Family Medical History: No Reported History Additional Family Medical History / Comment(s): of old age General Exam Limitations: altered mental status Course Vital Signs 11/02/20 12:07 Temperature 98.9 F Pulse Rate 90 Respiratory 18 Rate Blood Pressure 146/90 O2 Sat by Pulse 97 Oximetry Medical Decision Making - Lab Data Result diagrams: 11/02/20 12:44 11/02/20 12:42 Lab Results 11/02/20 11/02/20 Range/Units 12:42 12:44 WBC 12.2 H (3.8-10.6) k/uL RBC 5.04 (4.30-5.90) m/uL Hgb 15.4 (13.0-17.5) gm/dL Hct 45.1 (39.0-53.0) % MCV 89.5 (80.0-100.0) fL MCH 30.6 (25.0-35.0) pg MCHC 34.2 (31.0-37.0) g/dL RDW 13.7 (11.5-15.5) % Plt Count 232 (150-450) k/uL MPV 6.6 Neutrophils % 94 % Lymphocytes % 1 % Monocytes % 4 % Eosinophils % 0 % Basophils % 0 % Neutrophils # 11.5 H (1.3-7.7) k/uL Lymphocytes # 0.2 L (1.0-4.8) k/uL Monocytes # 0.5 (0-1.0) k/uL Eosinophils # 0.0 (0-0.7) k/uL Basophils # 0.0 (0-0.2) k/uL Sodium 131 L (137-145) mmol/L Potassium 4.7 (3.5-5.1) mmol/L Chloride 100 (98-107) mmol/L Carbon Dioxide 27 (22-30) mmol/L Anion Gap 4 mmol/L BUN 41 H (9-20) mg/dL Creatinine 0.77 (0.66-1.25) mg/dL Est GFR (CKD-EPI)AfAm >90 (>60 ml/min/1.73 sqM) Est GFR (CKD-EPI)NonAf >90 (>60 ml/min/1.73 sqM) Glucose 106 H (74-99) mg/dL Calcium 8.9 (8.4-10.2) mg/dL Total Bilirubin 0.6 (0.2-1.3) mg/dL AST 28 (17-59) U/L ALT 37 (4-49) U/L Alkaline Phosphatase 53 (38-126) U/L Total Protein 5.7 L (6.3-8.2) g/dL Albumin 3.2 L (3.5-5.0) g/dL Disposition Clinical Impression: End of life care, Brain metastasis Disposition: ADMITTED IP TO THIS [facility] Condition: Fair Referrals: Carlos Saeed MD [Primary Care Provider] - 1-2 days
[2020-11-02] MEDS ORDERED: LORazepam 2 MG/ML INJ IV STA ×2 (13:15→17:10)
[2020-11-02 13:23] LABS: Basophils % (A) 0 %; Eosinophils % (A) 0 %; HCT 45.1 % (39.0-53.0); HGB 15.4 gm/dL (13.0-17.5); Lymphocytes # (A) 0.2 k/uL (1.0-4.8); Lymphocytes % (A) 1 %; MCH 30.6 pg (25.0-35.0); MCHC 34.2 g/dL (31.0-37.0); MCV 89.5 fL (80.0-100.0); Mean Platelet Volume 6.6; Monocytes # (A) 0.5 k/uL (0-1.0); Monocytes % (A) 4 %; Neutrophils # (A) 11.5 k/uL (1.3-7.7); Neutrophils % (A) 94 %; Platelet Count 232 k/uL (150-450); RBC 5.04 m/uL (4.30-5.90); RDW 13.7 % (11.5-15.5); WBC 12.2 k/uL (3.8-10.6)
[2020-11-02 13:30] LABS: ALT 37 U/L (4-49); AST 28 U/L (17-59); African American GFR (CKD) >90 (>60 ml/min/1.73 sqM); Albumin 3.2 g/dL (3.5-5.0); Alkaline Phosphatase 53 U/L (38-126); Anion Gap 4 mmol/L; Blood Urea Nitrogen 41 mg/dL (9-20); Calcium 8.9 mg/dL (8.4-10.2); Carbon Dioxide 27 mmol/L (22-30); Chloride 100 mmol/L (98-107); Glucose 106 mg/dL (74-99); Non-African American GFR(CKD) >90 (>60 ml/min/1.73 sqM); Potassium 4.7 mmol/L (3.5-5.1); Sodium 131 mmol/L (137-145); Total Bilirubin 0.6 mg/dL (0.2-1.3); Total Protein 5.7 g/dL (6.3-8.2)
[2020-11-02] MEDS ORDERED: NALOXONE 0.4 MG/ML 1 ML VIAL IV PRN (13:47)
[2020-11-02] MEDS ORDERED: ONDANSETRON 4 MG/2 ML VIAL IVP PRN (17:29)
[2020-11-02] MEDS ORDERED: HYDROcodone/APAP 5-325MG 1 EACH TAB PO PRN (17:29)
--- NOTE | 2020-11-02 17:40 | P.HPIM ---
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 Patient is completely confused patient is confabulating at this time patient is on Decadron for brain metastases with significant edema. Patient is also on prophylactic Keppra. Patient is receiving palliative radiation patient was told that he doesn't have any cure patient is unable to make a decision at this time patient's next of kin is his had a lengthy discussion with his . Plan is comfort care and hospice is appropriate at this time. She is completely confused and confabulating at this time. Review of Systems Unable to obtain due to his confusion Past Medical History Past Medical History: Unable to Obtain, Cancer, Hypertension, Vascular Disorder Additional Past Medical History / Comment(s): 08/2019 L lung cancer with chemo/radiation then mets to brain with radiation treatments, past renal carcinoma with surgery, past cancerous colon polyp, 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 History of Any Multi-Drug Resistant Organisms: None Reported Past Surgical History: Appendectomy, Orthopedic Surgery Additional Past Surgical History / Comment(s): R nephrectomy, brain aneurysm patch, colonoscopy/polypectomy, EGD with biopsy, bronchoscopy with brushings/BAL/biopsy. Past Anesthesia/Blood Transfusion Reactions: No Reported Reaction Smoking Status: Former smoker - Past Family History Mother Family Medical History: Cancer Additional Family Medical History / Comment(s): colon cancer Father Family Medical History: No Reported History Additional Family Medical History / Comment(s): of old age Medications and Allergies Home Medications Medication Instructions Recorded Confirmed Type Omeprazole 20 mg PO DAILY 10/14/20 11/02/20 History Dexamethasone [Decadron] 4 mg PO Q6H 11/02/20 11/02/20 History Fluconazole [Diflucan] 100 mg PO DAILY 11/02/20 11/02/20 History LORazepam [Ativan] 0.5 mg PO QID PRN 11/02/20 11/02/20 History levETIRAcetam [Keppra] 500 mg PO Q12HR 11/02/20 11/02/20 History Allergies Allergy/AdvReac Type Severity Reaction Status Date / Time codeine AdvReac hyper Verified 11/02/20 13:40 Physical Exam Vitals: Vital Signs Temp Pulse Resp BP Pulse Ox 11/02/20 14:22 85 18 149/95 95 11/02/20 12:07 98.9 F 90 18 146/90 97 Intake and Output 11/02/20 11/02/20 11/02/20 06:59 14:59 22:59 Other: Weight 77.564 kg PHYSICAL EXAMINATION: GENERAL: The patient is alert and completely confused and confabulating, not in any acute distress. Well developed, well nourished. HEENT: Pupils are round and equally reacting to light. EOMI. No scleral icterus. No conjunctival pallor. Normocephalic, atraumatic. No pharyngeal erythema. No thyromegaly. CARDIOVASCULAR: S1 and S2 present. No murmurs, rubs, or gallops. PULMONARY: Chest is clear to auscultation, no wheezing or crackles. ABDOMEN: Soft, nontender, nondistended, normoactive bowel sounds. No palpable organomegaly. MUSCULOSKELETAL: No joint swelling or deformity. EXTREMITIES: No cyanosis, clubbing, or pedal edema. NEUROLOGICAL: Confused oriented 1 SKIN: No rashes. Results CBC & Chem 7: 11/02/20 12:44 11/02/20 12:42 Labs: Abnormal Lab Results - Last 24 Hours (Table) 11/02/20 11/02/20 Range/Units 12:42 12:44 WBC 12.2 H (3.8-10.6) k/uL Neutrophils # 11.5 H (1.3-7.7) k/uL Lymphocytes # 0.2 L (1.0-4.8) k/uL Sodium 131 L (137-145) mmol/L BUN 41 H (9-20) mg/dL Glucose 106 H (74-99) mg/dL Total Protein 5.7 L (6.3-8.2) g/dL Albumin 3.2 L (3.5-5.0) g/dL Thrombosis Risk Factor Assmnt - Choose All That Apply Any of the Below Risk Factors Present?: Yes Other Risk Factors: Yes Each Risk Factor Represents 2 Points: Age 61-74 years, Malignancy Other congenital or acquired thrombophilia - If yes, enter type in comment: No Thrombosis Risk Factor Assessment Total Risk Factor Score: 4 Thrombosis Risk Factor Assessment Level: Moderate Risk Assessment and Plan Plan: -Altered mental status: Secondary to metastatic disease to brain with possible significant edema no imaging was done as patient is declining any imaging and patient will be hospice. -Small cell lung cancer, advanced metastatic stage IV undergoing palliative radiation -Depression Plan: Hospice will be consulted patient will be started on comfort measures patient will be DO NOT RESUSCITATE
[2020-11-02] MEDS ORDERED: dexAMETHasone 4 MG TAB PO SCH (17:45)
[2020-11-02] MEDS ORDERED: MORPHINE SULFATE (100 MG/2 ML) 100 MG in SODIUM CHLORIDE 0.9% 100 ML IV SCH (18:00)
[2020-11-02] MEDS: LORazepam 2 MG/ML INJ IV PRN (20:40)
[2020-11-02] MEDS: levETIRAcetam 500 MG TAB PO SCH (23:35)
[2020-11-03] MEDS: HALOPERIDOL LACTATE 5 MG/ML 1 ML VIAL IM PRN ×3 (00:43→07:17)
[2020-11-03] MEDS: LORazepam 2 MG/ML INJ IV PRN ×3 (04:08→11:04)
[2020-11-03] MEDS ORDERED: PANTOPRAZOLE 40 MG TABLET PO SCH (07:30)
[2020-11-03 08:02] VITALS: RESP 16
[2020-11-03] MEDS: levETIRAcetam 500 MG TAB PO SCH (11:04)
[2020-11-03] MEDS ORDERED: flUPHENAZine 2.5 MG/ML (MDV) 10 ML VIAL IM PRN (13:38)
--- NOTE | 2020-11-03 13:47 | P.CN ---
Psychiatric Consult - . 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 REASON FOR REFERRAL: Psychiatry was consulted for homicidal ideations and violent behavior HISTORY OF PRESENT ILLNESS: The patient presented to the hospital as he was brought in by his family due to complaints of homicidal ideations and increasingly combative behavior and threatening at home. As per ER report, states that patient has had several rounds of radiation treatment for metastatic cancer. Patient apparently had threatened to kill both his and his son. Patient had a sodium level of 131 WBCs of 12.2 and Haldol was also given earlier today 2 mg +1 mg of Ativan. Patient's nurse claims the patient was fairly combative this morning and needs to be in restraints. Patient was off of restraints when telegraphic typewriter operator chief came in to interview patient and had a security one to one. This patient was laying down in his bed and appeared to be fairly lethargic. His attention span was fairly poor. He claims that he is feeling tired today and was fairly confused during the interview. He was a poor historian and was fairly vague about why he is in the hospital. He claims that his mood is "terrible" however did not elaborate further. He is denying any anxiety today. He claims that his appetite and sleep and poor. At this time patient denies any suicidal or homical ideations, intent or plan. Patient denies any auditory, visual hallucinations. Patients admits to using cigarettes in the past however uses no recreational drugs at this time. Patient has fairly poor insight and is impulsive. PAST PSYCHIATRIC HISTORY: Patient has a a history of metastatic cancer. He does not have any psychiatric history. Patient denies being on any psychiatric medications. Patient denies any previous psychiatric hospitalizations. Patient denies any psychiatric outpatient follow-up. Patient denies any history of suicide attempts in the past. PAST MEDICAL HISTORY: GERD, seizures, cancer with metastasis to his brain. ALLERGIES: as per EMR. CHEMICAL DEPENDENCY HISTORY: as per HPI. FAMILY PSYCHIATRIC/SUBSTANCE USE HISTORY: denies SOCIAL HISTORY: Patient was born and raised in [place]. He states that currently lives with his in a house and has 3 kids. He claims that he completed high school. He denies any legal problems at this time. MENTAL STATUS EXAM: General Appearance: Patient appears to be thin, stated age is lethargic, uncooperative and difficult to redirect. Patient appears to have fair hygiene and grooming wearing hospital gown with poor eye contact. Behavior: Patient is calmly lying in bed without any agitated behavior. Difficult to redirect and uncooperative. Speech: Patient's speech is nonpressured. Mumbled Mood/Affect: Patient reports their mood is "terrible", affect is congruent and constricted Suicidality/Homicidality: Patient denies having any suicidal or homicidal ideation intent or plan. Perceptions: Patient denies any visual hallucinations and denies any auditory hallucinations Though content/process: Patient is denying any delusions or paranoia. [place], poor historian. Memory and concentration: AOX1, patient does not know where he is or what today's date is. He believes that today's date is 1955 and believes that Vernon Wolf is a president. He has poor attention span. Judgment and insight: poor IMPRESSIONS: Delirium likely secondary to medications and brain metastasis PLAN: -At this time patient DOES NOT meet criteria for inpatient psychiatric ad mission. -Patient DOES NOT have decision making capacity at this time and is unable to reason through and communicate/appreciate the risks, benefits and alternatives to treatment. -Delirium precautions recommended with patient including - avoiding use of narcotics and RESEARCH/PROGRAM DIRECTOR sedatives, limit anticholinergic medications when possible, frequent re-orientation, minimize use of restraints, open window shades during the day and close them at night -Would recommend the following medication changes/additions: Discontinued any benzodiazepines as this may worsen patient's confusion and delirium. Started Remeron 15 mg daily at bedtime for sleep/mood/appetite. Started Prolixin 1 mg twice a day for aggression/psychosis. PRN Prolixin IM for severe agitation. -Continue 1:1 sitter for safety -Currently awaiting hospice and oncology recommendations -Communicated plan to patient's nurse -Will continue to follow along -Please contact with any questions.
--- NOTE | 2020-11-03 14:43 | P.PN ---
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 Patient is completely confused patient is confabulating at this time patient is on Decadron for brain metastases with significant edema. Patient is also on prophylactic Keppra. Patient is receiving palliative radiation patient was told that he doesn't have any cure patient is unable to make a decision at this time patient's next of kin is his had a lengthy discussion with his . Plan is comfort care and hospice is appropriate at this time. Patient is completely confused and confabulating at this time. Review of Systems Unable to obtain due to his confusion 11/03/2020 Patient is seen and evaluated in follow-up this morning apparently per nursing staff became extremely agitated and aggressive with continued confusion and a code strong was called and patient was placed in restraints and has since been removed and is more calm with Ativan and was given a dose of Haldol IM. Psychiatry also consulted recommending medication adjustments and Prolixin was added. Case management also following as patient's family has met with hospice and will be coming to sign consents and patient will be made inpatient hospice with comfort care measures only. Son and daughter at the bedside are agreeable with hospice as well along with the and she is meeting with hospice to sign the consents today. Patient is more calm and denies any chest pain or shortness of breath. Patient is afebrile and vital signs are stable. Objective - Vital Signs Vital signs: Vital Signs Temp 98.2 F 11/03/20 08:01 Pulse 94 11/03/20 08:01 Resp 16 11/03/20 08:01 BP 131/90 11/03/20 08:01 Pulse Ox 96 11/03/20 08:01 Intake & Output 11/02/20 11/03/20 11/03/20 18:59 06:59 18:59 Weight 77.564 kg - Exam GENERAL: The patient is alert and completely confused and confabulating, not in any acute distress. Well developed, well nourished. HEENT: Pupils are round and equally reacting to light. EOMI. No scleral icterus. No conjunctival pallor. Normocephalic, atraumatic. No pharyngeal erythema. No thyromegaly. CARDIOVASCULAR: S1 and S2 present. No murmurs, rubs, or gallops. PULMONARY: Chest is clear to auscultation, no wheezing or crackles. ABDOMEN: Soft, nontender, nondistended, normoactive bowel sounds. No palpable organomegaly. MUSCULOSKELETAL: No joint swelling or deformity. EXTREMITIES: No cyanosis, clubbing, or pedal edema. NEUROLOGICAL: Confused oriented 1 SKIN: No rashes. - Labs CBC & Chem 7: 11/02/20 12:44 11/02/20 12:42 Labs: Abnormal Lab Results - Last 24 Hours (Table) 11/02/20 11/02/20 Range/Units 12:42 12:44 WBC 12.2 H (3.8-10.6) k/uL Neutrophils # 11.5 H (1.3-7.7) k/uL Lymphocytes # 0.2 L (1.0-4.8) k/uL Sodium 131 L (137-145) mmol/L BUN 41 H (9-20) mg/dL Glucose 106 H (74-99) mg/dL Total Protein 5.7 L (6.3-8.2) g/dL Albumin 3.2 L (3.5-5.0) g/dL Assessment and Plan Assessment: -Altered mental status: Secondary to metastatic disease to brain with possible significant edema no imaging was done as patient is declining and patient will be hospice. -Small cell lung cancer, advanced metastatic stage IV undergoing palliative radiation -Depression -No code Plan: Hospice was consulted and apparently consents were electronically sent to the who did not sign the consents. Social work from [facility] to meet with to get signatures and patient will be made inpatient hospice with comfort measures only. Patient was extremely agitated and combative and aggressive with staff and a code strong was called and patient was placed in restraints which have been removed and psych was consulted and following. patient will be started on comfort measures once consents are signed by the . Will continue to follow.
[2020-11-03] MEDS: MORPHINE CONC SOLN 10mg/0.5mL ORAL SYRG PO SCH ×2 (15:05→15:07)
[2020-11-03 15:33] VITALS: BP 143/95; PULSE 95; TEMP 97.5
[2020-11-03] MEDS ORDERED: MIRTAZAPINE 15 MG TAB PO SCH (21:00)
== END 2020-11-03 17:17 | disposition hospice, inpatient (51) ==
LOC: EC 12:05 → 4SSUR 13:47 → INTOOBSV 13:47 → 4SSUR 20:05 → UNDODISIN 11-03 17:17
PROVIDERS: ADMIT Internal Medicine; ATTEND Internal Medicine
DX: C79.31 Secondary malignant neoplasm of brain (principal); C34.90 Malignant neoplasm of unspecified part of unspecified bronchus or lung; B37.0 Candidal stomatitis; F32.9 Major depressive disorder, single episode, unspecified; Z66 Do not resuscitate; R60.9 Edema, unspecified; R41.0 Disorientation, unspecified; R45.850 Homicidal ideations; K21.9 Gastro-esophageal reflux disease without esophagitis; Z78.1 Physical restraint status; E22.2 Syndrome of inappropriate secretion of antidiuretic hormone; Z20.822 Contact with and (suspected) exposure to COVID-19; Z90.5 Acquired absence of kidney; Z92.3 Personal history of irradiation; Z79.899 Other long term (current) drug therapy; Z88.5 Allergy status to narcotic agent; Z85.118 Personal history of other malignant neoplasm of bronchus and lung; Z98.890 Other specified postprocedural states; Z87.891 Personal history of nicotine dependence; Z92.21 Personal history of antineoplastic chemotherapy; Z85.528 Personal history of other malignant neoplasm of kidney; Z86.010 Personal history of colon polyps; Z85.038 Personal history of other malignant neoplasm of large intestine; Z80.0 Family history of malignant neoplasm of digestive organs
CPT/HCPCS: 96376 ×3; 96372; 96374; 99285; 36415; 93005; 80053; 85025; 87635; G0378 ×2; J2060 ×2; J1630

== ENCOUNTER 2020-11-03 16:38 | Inpatient (IN) | payer MEDICAID ==
[2020-11-03] MEDS ORDERED: HALOPERIDOL LACTATE 5 MG/ML 1 ML VIAL IM PRN (16:40)
[2020-11-03] MEDS ORDERED: LORazepam 2 MG/ML INJ IV PRN (16:40)
[2020-11-03] MEDS ORDERED: LORazepam 1 MG TAB PO PRN (16:50)
[2020-11-03] MEDS: MORPHINE SULFATE (100 MG/2 ML) 100 MG in SODIUM CHLORIDE 0.9% 100 ML IV SCH (18:06)
[2020-11-03] MEDS: MORPHINE CONC SOLN 10mg/0.5mL ORAL SYRG PO SCH ×2 (20:14→22:10)
[2020-11-03] MEDS: levETIRAcetam 500 MG TAB PO SCH (22:10)
[2020-11-03] MEDS: MIRTAZAPINE 15 MG TAB PO SCH (22:10)
[2020-11-03] MEDS: dexAMETHasone 4 MG TAB PO SCH (22:10)
[2020-11-04] MEDS: MORPHINE CONC SOLN 10mg/0.5mL ORAL SYRG PO SCH ×6 (01:31→21:42)
[2020-11-04 08:29] VITALS: RESP 18
[2020-11-04] MEDS: dexAMETHasone 4 MG TAB PO SCH (08:32)
[2020-11-04] MEDS: levETIRAcetam 500 MG TAB PO SCH ×2 (08:32→21:42)
[2020-11-04] MEDS: MORPHINE SULFATE (100 MG/2 ML) 100 MG in SODIUM CHLORIDE 0.9% 100 ML IV SCH (12:43)
--- NOTE | 2020-11-04 16:20 | P.HPIM ---
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 Patient is completely confused patient is confabulating at this time patient is on Decadron for brain metastases with significant edema. Patient is also on prophylactic Keppra. Patient is receiving palliative radiation patient was told that he doesn't have any cure patient is unable to make a decision at this time patient's next of kin is his had a lengthy discussion with his . Plan is comfort care and hospice is appropriate at this time. She is completely confused and confabulating at this time. Family has met with [facility] and have signed on and is currently made inpatient due to his increased agitation and continues to be symptomatic. 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 History of Any Multi-Drug Resistant Organisms: None Reported Past Surgical History: Appendectomy, Orthopedic Surgery Additional Past Surgical History / Comment(s): R nephrectomy, brain aneurysm patch, colonoscopy/polypectomy, EGD with biopsy, bronchoscopy with brushings/BAL/biopsy. Past Anesthesia/Blood Transfusion Reactions: No Reported Reaction Smoking Status: Former smoker - Past Family History Mother Family Medical History: Cancer Additional Family Medical History / Comment(s): colon cancer Father Family Medical History: No Reported History Additional Family Medical History / Comment(s): of old age Medications and Allergies Home Medications Medication Instructions Recorded Confirmed Type Omeprazole 20 mg PO DAILY 10/14/20 11/03/20 History Dexamethasone [Decadron] 4 mg PO Q6H 11/02/20 11/03/20 History Fluconazole [Diflucan] 100 mg PO DAILY 11/02/20 11/03/20 History LORazepam [Ativan] 0.5 mg PO QID PRN 11/02/20 11/03/20 History levETIRAcetam [Keppra] 500 mg PO Q12HR 11/02/20 11/03/20 History Allergies Allergy/AdvReac Type Severity Reaction Status Date / Time codeine AdvReac hyper Verified 11/03/20 17:27 Physical Exam Vitals: Vital Signs Temp Pulse Resp BP Pulse Ox 11/04/20 07:39 97.9 F 100 18 109/77 97 Intake and Output 11/03/20 11/04/20 11/04/20 22:59 06:59 14:59 Intake Total 480 Balance 480 Intake: Blood Product 480 Other: Voiding Method Toilet # Voids 3 1 Weight 77.56 kg GENERAL: The patient is alert and completely confused and confabulating, not in any acute distress. Well developed, well nourished. More calm today and willing to take medications for comfort measures family members at the bedside HEENT: Pupils are round and equally reacting to light. EOMI. No scleral icterus. No conjunctival pallor. Normocephalic, atraumatic. No pharyngeal erythema. No thyromegaly. CARDIOVASCULAR: S1 and S2 present. No murmurs, rubs, or gallops. PULMONARY: Chest is clear to auscultation, no wheezing or crackles. ABDOMEN: Soft, nontender, nondistended, normoactive bowel sounds. No palpable organomegaly. MUSCULOSKELETAL: No joint swelling or deformity. EXTREMITIES: No cyanosis, clubbing, or pedal edema. NEUROLOGICAL: Confused oriented 1 SKIN: No rashes. Assessment and Plan Assessment: -Altered mental status: Secondary to metastatic disease to brain with possible significant edema no imaging was done as patient is declining any imaging and patient will be hospice. -Small cell lung cancer, advanced metastatic stage IV undergoing palliative radiation -Depression -No Code Plan: Family has signed him on to hospice with [facility] and continues with comfort measures only. If patient continues to be calm today and manageable will be taking him home with hospice and comfort care measures only. Social work from [facility] working on discharge planning needs and necessary equipment to arrange for hospice in the home and anticipate discharge in 24 hours.
[2020-11-04] MEDS ORDERED: flUPHENAZine 2.5 MG/ML (MDV) 10 ML VIAL IM PRN (20:35)
[2020-11-04] MEDS: MIRTAZAPINE 15 MG TAB PO SCH (21:42)
[2020-11-05] MEDS: MORPHINE CONC SOLN 10mg/0.5mL ORAL SYRG PO SCH ×3 (00:57→09:43)
[2020-11-05] MEDS: levETIRAcetam 500 MG TAB PO SCH (07:55)
[2020-11-05 08:13] VITALS: BP 121/78; PULSE 79; TEMP 97.8
--- NOTE | 2020-11-05 12:27 | P.DS ---
Providers Date of admission: 11/03/20 17:21 Expected date of discharge: 11/05/20 Attending physician: Surjit German Consults: 11/04/20 20:34 Consult Physician Routine Consulting Provider: Teodoro Montoya Consult Reason/Comments: prior homicidal ideation Do you want consulting provider notified?: Already Contacted Primary care physician: Surjit German Hospital Course: Final diagnosis -Altered mental status: Secondary to metastatic disease to brain with possible significant edema -Small cell lung cancer, advanced metastatic stage IV undergoing palliative radiation -Depression -No Code Discharge disposition Patient is being discharged in a stable condition with guarded prognosis to home. Patient will continue with [facility] hospice in the home. Patient will f ollow-up with primary care provider in the outpatient setting upon discharge. Patient is to continue with [facility] comfort measures. Total time taken is greater than 35 minutes. 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 Patient is completely confused patient is confabulating at this time patient is on Decadron for brain metastases with significant edema. Patient is also on prophylactic Keppra. Patient is receiving palliative radiation patient was told that he doesn't have any cure patient is unable to make a decision at this time patient's next of kin is his had a lengthy discussion with his . Plan is comfort care and hospice is appropriate at this time. She is completely confused and confabulating at this time. Family has met with [facility] and have signed on and is currently made inpatient due to his increased agitation and continues to be symptomatic. Social work from [facility] working on discharge arrangements as patient will be going home on hospice with family and will continue with comfort medications until discharged 11/05/2020 Patient was seen and evaluated and follow-up this morning with no acute overnight issues. Patient's symptoms are more manageable and tolerating medication adjustments and will be going home with family and arrangements have been made for hospice in the home. Currently no reports of chest pain, shortness of breath, or palpitations. Patient is afebrile. No reports of nausea or vomiting and patient is tolerating diet. Patient will be discharged home today with family. [facility] hospice following. On exam vital signs are stable. Cardio S1, S2 are muffled. Respiratory system shows diminished breath sounds at the bases with no wheezing or rhonchi noted. Abdomen is soft and nontender. Nervous system shows no focal deficits. Please refer to medication reconciliation sheet for a list of medications. Patient Condition at Discharge: Poor Plan - Discharge Summary New Discharge Prescriptions: New fluPHENAZine [Prolixin] 1 mg PO BID 30 Days #60 tab Mirtazapine [Remeron] 15 mg PO HS 30 Days #30 tab Continue Omeprazole 20 mg PO DAILY LORazepam [Ativan] 0.5 mg PO QID PRN PRN Reason: Anxiety levETIRAcetam [Keppra] 500 mg PO Q12HR Discontinued Fluconazole [Diflucan] 100 mg PO DAILY Dexamethasone [Decadron] 4 mg PO Q6H Discharge Medication List Omeprazole 20 mg PO DAILY 10/14/20 [History] LORazepam [Ativan] 0.5 mg PO QID PRN 11/02/20 [History] levETIRAcetam [Keppra] 500 mg PO Q12HR 11/02/20 [History] Mirtazapine [Remeron] 15 mg PO HS 30 Days #30 tab 11/05/20 [Rx] fluPHENAZine [Prolixin] 1 mg PO BID 30 Days #60 tab 11/05/20 [Rx] Activity/Diet/Wound Care/Special Instructions: Patient is going home with [facility] Activity as tolerated Continue current medications and comfort measures Follow-up primary care provider outpatient Continue current diet Discharge Disposition: HOME WITH HOSPICE
== END 2020-11-05 14:55 | disposition hospice, home (50) | DRG 951 ==
LOC: 4SSUR 17:21
PROVIDERS: ADMIT Internal Medicine; ATTEND Internal Medicine
DX: Z51.5 Encounter for palliative care (principal); C79.31 Secondary malignant neoplasm of brain; C34.90 Malignant neoplasm of unspecified part of unspecified bronchus or lung; F32.9 Major depressive disorder, single episode, unspecified; I10 Essential (primary) hypertension; Z66 Do not resuscitate; R13.10 Dysphagia, unspecified; Z79.899 Other long term (current) drug therapy; Z87.891 Personal history of nicotine dependence; Z92.3 Personal history of irradiation; Z92.21 Personal history of antineoplastic chemotherapy; Z90.5 Acquired absence of kidney; Z85.528 Personal history of other malignant neoplasm of kidney; Z86.79 Personal history of other diseases of the circulatory system; Z90.49 Acquired absence of other specified parts of digestive tract; Z87.19 Personal history of other diseases of the digestive system; Z85.038 Personal history of other malignant neoplasm of large intestine; Z88.5 Allergy status to narcotic agent; Z80.0 Family history of malignant neoplasm of digestive organs

== ENCOUNTER 2020-11-05 17:32 | Inpatient (IN) | payer MEDICAID, OTHER ==
--- NOTE | 2020-11-05 18:04 | ED ---
General Adult HPI - General Chief complaint: Altered Mental Status Stated complaint: Behavioral issues Time Seen by Provider: 11/05/20 17:50 Source: patient, RN/MD (Hospice nurse), EMS, RN notes reviewed Mode of arrival: EMS Limitations: no limitations - History of Present Illness Initial comments: Patient is a pleasant 7 he 5-year-old male presenting to the emergency department by EMS secondary to behavioral issues. Patient does have history of metastatic lung cancer with metastasis to the brain. Patient has been under therapy. Patient was admitted secondary to aggressive behavior with some suicidal and homicidal ideation and just discharged today. Patient did go home and became aggressive with similar problems again. Patient does arrive with hospice nurse by EMS. She would like patient to be readmitted under hospice care. She states last time patient did do well with Ativan, morphine, and Haldol. - Related Data Home Medications Medication Instructions Recorded Confirmed Omeprazole 20 mg PO DAILY 10/14/20 11/03/20 LORazepam [Ativan] 0.5 mg PO QID PRN 11/02/20 11/03/20 levETIRAcetam [Keppra] 500 mg PO Q12HR 11/02/20 11/03/20 Previous Rx's Medication Instructions Recorded Mirtazapine [Remeron] 15 mg PO HS 30 Days #30 tab 11/05/20 fluPHENAZine [Prolixin] 1 mg PO BID 30 Days #60 tab 11/05/20 Allergies Allergy/AdvReac Type Severity Reaction Status Date / Time codeine AdvReac hyper Verified 11/05/20 17:42 Review of Systems ROS Statement: Those systems with pertinent positive or pertinent negative responses have been documented in the HPI. ROS Other: All systems not noted in ROS Statement are negative. Constitutional: Denies: fever Eyes: Denies: eye pain ENT: Denies: ear pain Respiratory: Denies: cough Cardiovascular: Denies: chest pain Endocrine: Denies: fatigue Gastrointestinal: Denies: abdominal pain Genitourinary: Denies: dysuria Musculoskeletal: Denies: back pain Skin: Denies: rash Neurological: Reports: as per HPI, confusion Psychiatric: Reports: as per HPI Past Medical History Past Medical History: Unable to Obtain, Cancer, Hypertension, Vascular Disorder Additional Past Medical History / Comment(s): 08/2019 L lung cancer with chemo/radiation then mets to brain with radiation treatments, past renal carcinoma with surgery, past cancerous colon polyp, 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 History of Any Multi-Drug Resistant Organisms: None Reported Past Surgical History: Appendectomy, Orthopedic Surgery Additional Past Surgical History / Comment(s): R nephrectomy, brain aneurysm patch, colonoscopy/polypectomy, EGD with biopsy, bronchoscopy with brushings/BAL /biopsy. Past Anesthesia/Blood Transfusion Reactions: No Reported Reaction Past Psychological History: Anxiety, Depression Smoking Status: Former smoker - Past Family History Mother Family Medical History: Cancer Additional Family Medical History / Comment(s): colon cancer Father Family Medical History: No Reported History Additional Family Medical History / Comment(s): of old age General Exam Limitations: no limitations General appearance: alert, in no apparent distress Head exam: Present: other (Alopecia consistent with history of radiation treatment) Eye exam: Present: normal appearance, PERRL ENT exam: Present: normal oropharynx Neck exam: Present: normal inspection. Absent: tenderness, meningismus Respiratory exam: Present: normal lung sounds bilaterally Cardiovascular Exam: Present: tachycardia GI/Abdominal exam: Present: soft. Absent: tenderness Extremities exam: Present: normal inspection Neurological exam: Present: alert. Absent: motor sensory deficit Expanded Neurological exam: Present: protecting the airway Patient oriented to: Absent: place, time Speech: Present: fluid speech Motor strength exam: RUE: 5, LUE: 5, RLE: 5, LLE: 5 Eye Response: (4) open spontaneously Motor Response: (6) obeys commands Verbal Response: (3) inappropriate words Psychiatric exam: Present: normal affect, normal mood Skin exam: Present: normal color Course Vital Signs 11/05/20 17:38 Temperature 97.8 F Pulse Rate 120 H Respiratory 18 Rate Blood Pressure 129/92 O2 Sat by Pulse 100 Oximetry Medical Decision Making - Medical Decision Making Case was also discussed with practitioner clayton Cannon, covering with Dr. German, who will admit. Hospice nurse states she will be in contact with them. Disposition Clinical Impression: Brain metastasis, History of lung cancer, Aggression Disposition: ADMITTED IP TO THIS HOSP Is patient prescribed a controlled substance at d/c from ED?: No Referrals: Surjit German MD [Primary Care Provider] - 1-2 days Decision Time: 18:08
[2020-11-05] MEDS ORDERED: NALOXONE 0.4 MG/ML 1 ML VIAL IV PRN (18:08)
[2020-11-05] MEDS ORDERED: MORPHINE SULFATE 4 MG/ML SYRINGE IV PRN (18:08)
[2020-11-05] MEDS ORDERED: LORazepam 2 MG/ML INJ IV PRN (18:08)
[2020-11-05] MEDS ORDERED: LORazepam 0.5 MG TAB PO PRN (18:40)
[2020-11-05] MEDS ORDERED: HALOPERIDOL LACTATE 5 MG/ML 1 ML VIAL IM PRN (18:40)
[2020-11-05] MEDS: SODIUM CHLORIDE 0.9% 1,000 ML IV SCH (21:59)
[2020-11-06] MEDS: MORPHINE CONC SOLN 10mg/0.5mL ORAL SYRG PO SCH ×4 (11:32→21:08)
--- NOTE | 2020-11-06 14:14 | P.HPIM ---
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 [facility] was contacted shortly after patient returning home and began making more threats and homicidal actions towards his and was brought back to the ER for further evaluation. [facility] continues to follow and working on possible hospice house placement or an AFC that will accommodate him. Patient denies any chest pain, shortness of breath, or palpitations. Patient is afebrile. No reports of nausea or vomiting noted and patient is tolerating diet. Patient denies any dysuria or retention. Family is agreeable to continue with hospice and is working with [facility] for possible placement. Review of Systems Constitutional: Reports as per HPI Cardiovascular: Reports as per HPI Respiratory: Reports as per HPI Gastrointestinal: Reports as per HPI Genitourinary: Reports as per HPI Musculoskeletal: Reports as per HPI Integumentary: Denies pruritus, Denies rash Neurological: Reports confusion Psychiatric: Reports confusion Past Medical History Past Medical History: Unable to Obtain, Cancer, Hypertension, Vascular Disorder Additional Past Medical History / Comment(s): 08/2019 L lung cancer with chemo/radiation then mets to brain with radiation treatments, past renal carcinoma with surgery, past cancerous colon polyp, 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 History of Any Multi-Drug Resistant Organisms: None Reported Past Surgical History: Appendectomy, Orthopedic Surgery Additional Past Surgical History / Comment(s): R nephrectomy, brain aneurysm patch, colonoscopy/polypectomy, EGD with biopsy, bronchoscopy with brushings/BAL/biopsy. Past Anesthesia/Blood Transfusion Reactions: No Reported Reaction Past Psychological History: Anxiety, Depression Additional Psychological History / Comment(s): Pt resides with his spouse of 36 yrs. Pt has AMS and has mad life threatening remarks to spouse/family. Spouse states they want pt placed in hospice. Pt uses no assistive device. He no longer drives, spouse drives. Smoking Status: Former smoker Past Alcohol Use History: Occasional Additional Past Alcohol Use History / Comment(s): Pt started smoking as a teen and quit in 2019. Past Drug Use History: None Reported - Past Family History Mother Family Medical History: Cancer Additional Family Medical History / Comment(s): colon cancer Father Family Medical History: No Reported History Additional Family Medical History / Comment(s): of old age Medications and Allergies Home Medications Medication Instructions Recorded Confirmed Type Omeprazole 20 mg PO DAILY 10/14/20 11/05/20 History LORazepam [Ativan] 0.5 mg PO QID PRN 11/02/20 11/05/20 History levETIRAcetam [Keppra] 500 mg PO Q12HR 11/02/20 11/05/20 History Mirtazapine [Remeron] 15 mg PO HS 30 Days #30 tab 11/05/20 11/05/20 Rx fluPHENAZine [Prolixin] 1 mg PO BID 30 Days #60 tab 11/05/20 11/05/20 Rx Allergies Allergy/AdvReac Type Severity Reaction Status Date / Time codeine AdvReac hyper Verified 11/05/20 17:42 Physical Exam Vitals: Vital Signs Temp Pulse Pulse Pulse Resp BP BP 11/06/20 08:00 98.0 F 101 H 16 114/74 11/05/20 21:57 98.6 F 106 H 18 11/05/20 21:40 102 H 18 124/78 11/05/20 17:38 97.8 F 120 H 18 129/92 BP Pulse Ox 11/06/20 08:00 97 11/05/20 21:57 135/73 95 11/05/20 21:40 98 11/05/20 17:38 100 Intake and Output 11/05/20 11/06/20 11/06/20 22:59 06:59 14:59 Other: # Voids 2 Weight 73.482 kg Gen: This is a 65-year-old male currently lying in bed, awake, alert and oriented 1-2 appears to be in no acute distress. HEENT: Head is atraumatic, normocephalic. Pupils equal, round. Sclerae is anicteric. NECK: Supple. No JVD. No lymphadenopathy. No thyromegaly. LUNGS: Clear to auscultation. No wheezes or rhonchi. No intercostal retractions. HEART: Regular rate and rhythm. No murmur. ABDOMEN: Soft. Bowel sounds are present. No masses. No tenderness. EXTREMITIES: No pedal edema. No calf tenderness. NEUROLOGICAL: Patient is awake, alert and oriented x1-2. Cranial nerves 2 through 12 are grossly intact. Thrombosis Risk Factor Assmnt - Choose All That Apply Any of the Below Risk Factors Present?: No Other Risk Factors: Yes Each Risk Factor Represents 2 Points: Age 61-74 years Thrombosis Risk Factor Assessment Total Risk Factor Score: 2 Thrombosis Risk Factor Assessment Level: Low Risk Assessment and Plan Assessment: -Altered mental status secondary to metastatic disease to the brain -Small cell lung cancer with advancing metastatic stage IV -Increased agitation and aggression in the home -History of depression/ anxiety -No code Plan: Attempts were made to bring the patient home with hospice and continued to become more aggressive and continued with threats towards the and was brought back to the ER with [facility] as they are following and is unsafe to return home. Plans are for finding possible hospice house or AFC placement that can accommodate him. Continue with comfort measures and will continue to follow and monitor closely.
[2020-11-06] MEDS: haloperidoL 5 MG TAB PO SCH ×2 (17:38→23:34)
[2020-11-06] MEDS: SODIUM CHLORIDE 0.9% 1,000 ML IV SCH (20:55)
[2020-11-07] MEDS: MORPHINE CONC SOLN 10mg/0.5mL ORAL SYRG PO SCH ×6 (02:31→22:31)
[2020-11-07] MEDS: haloperidoL 5 MG TAB PO SCH ×3 (08:50→22:30)
--- NOTE | 2020-11-07 16:07 | P.PN ---
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 [facility] was contacted shortly after patient returning home and began making more threats and homicidal actions towards his and was brought back to the ER for further evaluation. [facility] continues to follow and working on possible hospice house placement or an AFC that will accommodate him. Patient denies any chest pain, shortness of breath, or palpitations. Patient is afebrile. No reports of nausea or vomiting noted and patient is tolerating diet. Patient denies any dysuria or retention. Family is agreeable to continue with hospice and is working with [facility] for possible placement. 11/07/2020 Patient seen on follow-up resting in bed, does not appear to be in acute distress, no agitation at time of assessment. Vital signs stable, no fever. Awaiting possible placement or AFC to accommodate where he can continue hospice. REVIEW OF SYSTEMS: ENT: No diminished vision or hearing. CARDIOVASCULAR: Negative RESPIRATORY: Negatie GI: No nauscea, vomiting or diarrhea. : No dysuria or retention. NERVOUS SYSTEM: No numbness or weakness. Objective - Vital Signs Vital signs: Vital Signs Temp 98.4 F 11/07/20 14:11 Pulse 128 H 11/07/20 14:11 Resp 19 11/07/20 14:11 BP 108/66 11/07/20 14:11 Pulse Ox 94 L 11/07/20 14:11 Intake & Output 11/06/20 11/07/20 11/07/20 18:59 06:59 18:59 Intake Total 200 Balance 200 Intake: Oral 200 Other: Voiding Method Toilet Toilet Toilet # Voids 3 1 - Exam HEENT: Head is atraumatic, normocephalic. Pupils equal, round. Sclerae is anicteric. NECK: Supple. No JVD. No lymphadenopathy. No thyromegaly. LUNGS: Clear to auscultation. No wheezes or rhonchi. No intercostal retractions. HEART: Regular rate and rhythm. No murmur. ABDOMEN: Soft. Bowel sounds are present. No masses. No tenderness. EXTREMITIES: No pedal edema. No calf tenderness. NEUROLOGICAL: Patient is awake, alert and oriented x1-2. Cranial nerves 2 through 12 are grossly intact. Assessment and Plan Assessment: -Altered mental status secondary to metastatic disease to the brain -Small cell lung cancer with advancing metastatic stage IV -Increased agitation and aggression in the home -History of depression/ anxiety -No code Plan: Attempts were made to bring the patient home with hospice and continued to become more aggressive and continued with threats towards the and was brought back to the ER with [facility] as they are following and is unsafe to return home. Plans are for finding possible hospice house or AFC placement that can accommodate him. Continue with comfort measures and will continue to follow and monitor closely.
[2020-11-07] MEDS: SODIUM CHLORIDE 0.9% 1,000 ML IV SCH (20:50)
[2020-11-08] MEDS: MORPHINE CONC SOLN 10mg/0.5mL ORAL SYRG PO SCH ×6 (03:37→22:40)
[2020-11-08] MEDS: haloperidoL 5 MG TAB PO SCH ×3 (08:40→22:40)
--- NOTE | 2020-11-08 15:02 | P.PN ---
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 [facility] was contacted shortly after patient returning home and began making more threats and homicidal actions towards his and was brought back to the ER for further evaluation. [facility] continues to follow and working on possible hospice house placement or an AFC that will accommodate him. Patient denies any chest pain, shortness of breath, or palpitations. Patient is afebrile. No reports of nausea or vomiting noted and patient is tolerating diet. Patient denies any dysuria or retention. Family is agreeable to continue with hospice and is working with [facility] for possible placement. 11/07/2020 Patient seen on follow-up resting in bed, does not appear to be in acute distress, no agitation at time of assessment. Vital signs stable, no fever. Awaiting possible placement or AFC to accommodate where he can continue hospice. 11/08/2020 Patient seen on reevaluation resting in bed comfortably. Receiving Roxanol for pain relief, and Haldol as needed for agitation, he received dose of Haldol this morning. He is hospice and we are waiting AFC for possible discharge disposition as he can likely not go home with due to social issue. REVIEW OF SYSTEMS: ENT: No diminished vision or hearing. CARDIOVASCULAR: Negative RESPIRATORY: Negatie GI: No nauscea, vomiting or diarrhea. : No dysuria or retention. NERVOUS SYSTEM: No numbness or weakness. Objective - Vital Signs Vital signs: Vital Signs Temp 98.2 F 11/08/20 13:56 Pulse 100 11/08/20 13:56 Resp 18 11/08/20 13:56 BP 133/89 11/08/20 13:56 Pulse Ox 93 L 11/08/20 13:56 Intake & Output 11/07/20 11/08/20 11/08/20 18:59 06:59 18:59 Intake Total 540 Balance 540 Intake: Oral 540 Other: Voiding Method Toilet Toilet # Voids 3 - Exam HEENT: Head is atraumatic, normocephalic. Pupils equal, round. Sclerae is an icteric. NECK: Supple. No JVD. No lymphadenopathy. No thyromegaly. LUNGS: Clear to auscultation. No wheezes or rhonchi. No intercostal retractions. HEART: Regular rate and rhythm. No murmur. ABDOMEN: Soft. Bowel sounds are present. No masses. No tenderness. EXTREMITIES: No pedal edema. No calf tenderness. NEUROLOGICAL: Patient is awake, alert and oriented x1-2. Cranial nerves 2 through 12 are grossly intact. Assessment and Plan Assessment: -Altered mental status secondary to metastatic disease to the brain -Small cell lung cancer with advancing metastatic stage IV -Increased agitation and aggression in the home -History of depression/ anxiety -No code Plan: Patient back in Hospital as he continued to be aggressive with threats towards . Plan is for possible hospice house or AFC placement where he can continue on hospice, as he likely cannot return home due to the ongoing social issues. He is receiving Roxanol for pain relief, and Haldol as needed for agitation. Continue with comfort measures and will continue to follow and monitor closely.
[2020-11-08] MEDS: SODIUM CHLORIDE 0.9% 1,000 ML IV SCH (22:29)
[2020-11-09] MEDS: MORPHINE CONC SOLN 10mg/0.5mL ORAL SYRG PO SCH ×6 (02:18→21:59)
[2020-11-09] MEDS: haloperidoL 5 MG TAB PO SCH ×3 (08:37→21:59)
--- NOTE | 2020-11-09 14:25 | P.PN ---
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 [facility] was contacted shortly after patient returning home and began making more threats and homicidal actions towards his and was brought back to the ER for further evaluation. [facility] continues to follow and working on possible hospice house placement or an AFC that will accommodate him. Patient denies any chest pain, shortness of breath, or palpitations. Patient is afebrile. No reports of nausea or vomiting noted and patient is tolerating diet. Patient denies any dysuria or retention. Family is agreeable to continue with hospice and is working with [facility] for possible placement. 11/07/2020 Patient seen on follow-up resting in bed, does not appear to be in acute distress, no agitation at time of assessment. Vital signs stable, no fever. Awaiting possible placement or AFC to accommodate where he can continue hospice. 11/08/2020 Patient seen on reevaluation resting in bed comfortably. Receiving Roxanol for pain relief, and Haldol as needed for agitation, he received dose of Haldol this morning. He is hospice and we are waiting AF for possible discharge disposition as he can likely not go home with due to social issue. 11/09/2020 Patient is seen and evaluated this morning with no acute overnight issues. Patient continues to be calm and cooperative with staff and maintained on as needed comfort medications. [facility] following closely and plans are for discharge to [facility] tomorrow and will continue with [facility] comfort measures outpatient. Review of systems: Constitutional: No reports of fatigue, fever, or chills Cardiovascular: No reports of chest pain or palpitations Respiratory: No reports of shortness of breath or cough GI: No reports of nausea, vomiting, or diarrhea : No reports of dysuria or retention Neurovascular: No reports of weakness or numbness All medications have been reviewed Objective - Vital Signs Vital signs: Vital Signs Temp 97.4 F L 11/09/20 07:23 Pulse 106 H 11/09/20 08:00 Resp 18 11/09/20 08:00 BP 134/89 11/09/20 07:23 Pulse Ox 95 11/09/20 07:23 Intake & Output 11/08/20 11/09/20 11/09/20 18:59 06:59 18:59 Other: Voiding Method Toilet Toilet # Voids 2 - Exam HEENT: Head is atraumatic, normocephalic. Pupils equal, round. Sclerae is anicteric. NECK: Supple. No JVD. No lymphadenopathy. No thyromegaly. LUNGS: Clear to auscultation. No wheezes or rhonchi. No intercostal retractions. HEART: Regular rate and rhythm. No murmur. ABDOMEN: Soft. Bowel sounds are present. No masses. No tenderness. EXTREMITIES: No pedal edema. No calf tenderness. NEUROLOGICAL: Patient is awake, alert and oriented x1-2. Cranial nerves 2 through 12 are grossly intact. Assessment and Plan Assessment: -Altered mental status secondary to metastatic disease to the brain -Small cell lung cancer with advancing metastatic stage IV -Increased agitation and aggression in the home -History of depression/ anxiety -No code Plan: Continue with comfort measures and [facility] hospice following. Plans are for [facility] at [facility] for continued hospice care with comfort measures. Will continue to monitor closely and anticipate discharge in 24 hours.
[2020-11-09] MEDS: SODIUM CHLORIDE 0.9% 1,000 ML IV SCH (18:02)
[2020-11-09 20:00] VITALS: RESP 16; TEMP 97.8
[2020-11-10 02:59] VITALS: BP 129/86; PULSE 47
[2020-11-10] MEDS: MORPHINE CONC SOLN 10mg/0.5mL ORAL SYRG PO SCH ×4 (03:37→13:23)
[2020-11-10] MEDS: haloperidoL 5 MG TAB PO SCH (09:17)
--- NOTE | 2020-11-10 09:45 | P.DS ---
Providers Date of admission: 11/05/20 18:08 Expected date of discharge: 11/10/20 Attending physician: Surjit German Primary care physician: Surjit German Hospital Course: Final diagnosis -Altered mental status secondary to metastatic disease to the brain -Small cell lung cancer with advancing metastatic stage IV -Increased agitation and aggression in the home -History of depression/ anxiety -No code Discharge disposition Patient is being discharged in a stable condition with guarded prognosis to [facility]. Patient will be continuing with hospice comfort care. Patient will follow-up with primary care provider in the outpatient setting upon discharge. Total time taken is greater than 35 minutes. 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 [facility] was contacted shortly after patient returning home and began making more threats and homicidal actions towards his and was brought back to the ER for further evaluation. [facility] continues to follow and working on possible hospice house placement or an AFC that will accommodate him. Patient denies any chest pain, shortness of breath, or palpitations. Patient is afebrile. No reports of nausea or vomiting noted and patient is tolerating diet. Patient denies any dysuria or retention. Family is agreeable to continue with hospice and is working with [facility] for possible placement. 11/07/2020 Patient seen on follow-up resting in bed, does not appear to be in acute distress, no agitation at time of assessment. Vital signs stable, no fever. Awaiting possible placement or AFC to accommodate where he can continue hospice. 11/08/2020 Patient seen on reevaluation resting in bed comfortably. Receiving Roxanol for pain relief, and Haldol as needed for agitation, he received dose of Haldol this morning. He is hospice and we are waiting AFC for possible discharge disposition as he can likely not go home with due to social issue. 11/09/2020 Patient is seen and evaluated this morning with no acute overnight issues. Patient continues to be calm and cooperative with staff and maintained on as needed comfort medications. [facility] following closely and plans are for discharge to [facility] tomorrow and will continue with [facility] hospice comfort measures outpatient. 11/10/2020 Patient is seen this morning with no acute issues overnight and is scheduled to go to [facility] and continue with hospice comfort care with [facility]. Currently no reports of chest pain, shortness of breath, or palpitations. Patient is afebrile. No reports of nausea or vomiting and patient is tolerating diet. Patient will be discharged today. On exam vital signs are stable. Cardio S1, S2 are muffled. Respiratory system shows diminished breath sounds at the bases with no wheezing or rhonchi noted. Abdomen is soft and nontender. Nervous system shows no focal deficits. Please refer to medication reconciliation sheet for a list of medications. Patient Condition at Discharge: Stable Plan - Discharge Summary Discharge Rx Participant: No New Discharge Prescriptions: New haloperidoL [Haldol] 10 mg PO TID #30 tab MORPHINE ORAL JENNIFER CONC 20mg/mL [Roxanol Oral Soln Conc 20MG/ML] 5 mg PO Q4H PRN 3 Days #9 ml PRN Reason: Pain Continue Omeprazole 20 mg PO DAILY fluPHENAZine [Prolixin] 1 mg PO BID 30 Days #60 tab LORazepam [Ativan] 0.5 mg PO QID PRN #10 PRN Reason: Anxiety Mirtazapine [Remeron] 15 mg PO HS 30 Days #30 tab Discontinued levETIRAcetam [Keppra] 500 mg PO Q12HR Discharge Medication List Omeprazole 20 mg PO DAILY 10/14/20 [History] Mirtazapine [Remeron] 15 mg PO HS 30 Days #30 tab 11/05/20 [Rx] fluPHENAZine [Prolixin] 1 mg PO BID 30 Days #60 tab 11/05/20 [Rx] LORazepam [Ativan] 0.5 mg PO QID PRN #10 11/10/20 [Rx] MORPHINE ORAL JENNIFER CONC 20mg/mL [Roxanol Oral Soln Conc 20MG/ML] 5 mg PO Q4H PRN 3 Days #9 ml 11/10/20 [Rx] haloperidoL [Haldol] 10 mg PO TID #30 tab 11/10/20 [Rx] Activity/Diet/Wound Care/Special Instructions: Patient is going to [facility] Activity as tolerated Continue current regular diet Continue with Hospice comfort care Discharge Disposition: TRANSFER TO SNF/ECF
== END 2020-11-10 13:25 | disposition hospice, home (50) | DRG 951 ==
LOC: EC 17:32 → 4SSUR 18:08
PROVIDERS: ADMIT Internal Medicine; ATTEND Internal Medicine
DX: Z51.5 Encounter for palliative care (principal); C79.31 Secondary malignant neoplasm of brain; C34.90 Malignant neoplasm of unspecified part of unspecified bronchus or lung; R45.851 Suicidal ideations; F32.9 Major depressive disorder, single episode, unspecified; F41.9 Anxiety disorder, unspecified; F91.9 Conduct disorder, unspecified; I10 Essential (primary) hypertension; R45.850 Homicidal ideations; Z80.0 Family history of malignant neoplasm of digestive organs; Z85.038 Personal history of other malignant neoplasm of large intestine; Z85.528 Personal history of other malignant neoplasm of kidney; Z87.891 Personal history of nicotine dependence; Z90.5 Acquired absence of kidney
CPT/HCPCS: 99285